=== PATIENT | male | born 1960 | race African-American/Black ===

== ENCOUNTER → 2017-08-01 | Outpatient (CLI) | payer OTHER ==
[2017-08-02 16:55] LABS: ADD MAN DIFF? NO
[2017-08-02 17:11] LABS: BASO # 0.1 x10^3/uL (0.0-0.2); BASO % 1 % (0-3); EOS # 0.1 x10^3/uL (0.0-0.7); EOS % 1 % (0-3); HEMATOCRIT 45.3 % (39.0-53.0); HEMOGLOBIN 14.8 g/dL (13.0-17.5); LYMPH # 2.2 x10^3/uL (1.0-4.8); LYMPH % 31 % (24-48); MEAN CORPUSCULAR HEMOGLOBIN 27 pg (25-35); MEAN CORPUSCULAR HGB CONC 33 g/dL (31-37); MEAN CORPUSCULAR VOLUME 83 fL (79-100); MONO # 0.6 x10^3/uL (0.0-1.1); MONO % 8 % (0-9); NEUT # 4.3 x10^3uL (1.8-7.7); NEUT % 59 % (31-73); PLATELET COUNT 266 x10^3/uL (140-400); RED BLOOD COUNT 5.44 x10^6/uL (4.30-5.70); RED CELL DISTRIBUTION WIDTH 15.4 % (11.5-14.5); WHITE BLOOD COUNT 7.2 x10^3/uL (4.0-11.0)
[2017-08-02 17:45] LABS: ALBUMIN 4.5 g/dL (3.4-5.0); ALBUMIN/GLOBULIN RATIO 0.9 (1.0-1.7); ALK PHOS 114 U/L (46-116); ALT (SGPT) 30 U/L (16-63); ANION GAP 14 (6-14); AST (SGOT) 28 U/L (15-37); BLOOD UREA NITROGEN 35 mg/dL (8-26); BUN/CREATININE RATIO 19 (6-20); CALCIUM 9.6 mg/dL (8.5-10.1); CARBON DIOXIDE 29 mmol/L (21-32); CHLORIDE 99 mmol/L (98-107); CHOLESTEROL 337 mg/dL (0-200); CREATININE 1.8 mg/dL (0.7-1.3); GFR 47.6; GLUCOSE 103 mg/dL (70-99); HDLC 54 mg/dL (40-60); LDLC 206 mg/dL (0-100); NON-HDL CHOLESTEROL 283 mg/dL (0-129); POTASSIUM 4.2 mmol/L (3.5-5.1); SODIUM 142 mmol/L (136-145); TOTAL BILIRUBIN 0.4 mg/dL (0.2-1.0); TOTAL PROTEIN 9.3 g/dL (6.4-8.2); TRIGLYCERIDES 383 mg/dL (0-150); VLDLC 77 mg/dL (0-40)
[2017-08-02 17:50] LABS: CHOLESTEROL/HDL RATIO 6.2
[2017-08-02 17:57] LABS: THYROID STIM HORMONE (TSH) 4.528 uIU/mL (0.358-3.74)
[2017-08-03 03:19] LABS: HEMOGLOBIN A1C 5.6 % (4.8-5.6)
[2017-08-06 17:12] LABS: ANA INTERP Negative (.)
== END | disposition home or self-care (01) ==
LOC: LAB 17:14
DX: I12.9 Hypertensive chronic kidney disease with stage 1 through stage 4 chronic kidney disease, or unspecified chronic kidney disease (principal); N18.9 Chronic kidney disease, unspecified; E78.2 Mixed hyperlipidemia; R79.89 Other specified abnormal findings of blood chemistry
CPT/HCPCS: 36415; 80053; 80061; 83036; 84443; 85025; 86038

== ENCOUNTER → 2018-01-03 | Outpatient (CLI) | payer OTHER ==
[2018-01-03 17:05] LABS: ADD MAN DIFF? NO
[2018-01-03 17:11] LABS: BASO % 1 % (0-3); EOS # 0.1 x10^3/uL (0.0-0.7); EOS % 1 % (0-3); HEMATOCRIT 38.3 % (39.0-53.0); HEMOGLOBIN 13.3 g/dL (13.0-17.5); LYMPH # 2.3 x10^3/uL (1.0-4.8); LYMPH % 33 % (24-48); MEAN CORPUSCULAR HEMOGLOBIN 29 pg (25-35); MEAN CORPUSCULAR HGB CONC 35 g/dL (31-37); MEAN CORPUSCULAR VOLUME 83 fL (79-100); MONO # 0.4 x10^3/uL (0.0-1.1); MONO % 6 % (0-9); NEUT % 58 % (31-73); PLATELET COUNT 229 x10^3/uL (140-400); RED BLOOD COUNT 4.62 x10^6/uL (4.30-5.70); RED CELL DISTRIBUTION WIDTH 14.9 % (11.5-14.5); WHITE BLOOD COUNT 6.8 x10^3/uL (4.0-11.0)
[2018-01-03 17:32] LABS: ALBUMIN 4.2 g/dL (3.4-5.0); ALK PHOS 107 U/L (46-116); ALT (SGPT) 72 U/L (16-63); ANION GAP 12 (6-14); AST (SGOT) 46 U/L (15-37); BLOOD UREA NITROGEN 24 mg/dL (8-26); BUN/CREATININE RATIO 14 (6-20); CALCIUM 9.1 mg/dL (8.5-10.1); CARBON DIOXIDE 26 mmol/L (21-32); CHLORIDE 99 mmol/L (98-107); CHOLESTEROL 224 mg/dL (0-200); CREATINE KINASE 553 U/L (39-308); CREATININE 1.7 mg/dL (0.7-1.3); GFR 50.9; GLUCOSE 122 mg/dL (70-99); HDLC 42 mg/dL (40-60); NON-HDL CHOLESTEROL 182 mg/dL (0-129); POTASSIUM 3.4 mmol/L (3.5-5.1); SODIUM 137 mmol/L (136-145); TOTAL BILIRUBIN 0.3 mg/dL (0.2-1.0); TOTAL PROTEIN 8.5 g/dL (6.4-8.2)
[2018-01-03 17:40] LABS: FREE T4 0.77 ng/dL (0.76-1.46)
[2018-01-03 17:40] LABS: THYROID STIM HORMONE (TSH) 3.859 uIU/mL (0.358-3.74)
[2018-01-03 17:53] LABS: LDLC 95 mg/dL (0-100); TRIGLYCERIDES 434 mg/dL (0-150); VLDLC 87 mg/dL (0-40)
[2018-01-03 18:16] LABS: CHOLESTEROL/HDL RATIO 5.3
== END | disposition home or self-care (01) ==
LOC: LAB 16:51
DX: I12.9 Hypertensive chronic kidney disease with stage 1 through stage 4 chronic kidney disease, or unspecified chronic kidney disease (principal); N18.9 Chronic kidney disease, unspecified; E78.2 Mixed hyperlipidemia; R94.6 Abnormal results of thyroid function studies
CPT/HCPCS: 36415; 80053; 80061; 82550; 84439; 84443; 85025

== ENCOUNTER → 2018-05-10 | Outpatient (CLI) | payer OTHER ==
[2018-05-10 17:41] LABS: ALBUMIN 4.5 g/dL (3.4-5.0); ALBUMIN/GLOBULIN RATIO 1.1 (1.0-1.7); CREATININE 1.4 mg/dL (0.7-1.3); GFR 63.7; MAGNESIUM 2.1 mg/dL (1.8-2.4); POTASSIUM 3.7 mmol/L (3.5-5.1); TOTAL BILIRUBIN 0.5 mg/dL (0.2-1.0); TOTAL PROTEIN 8.7 g/dL (6.4-8.2)
[2018-05-10 17:45] LABS: CHOLESTEROL/HDL RATIO 5.7
== END | disposition home or self-care (01) ==
LOC: LAB 16:52
PROVIDERS: ATTEND Internal Medicine
DX: E78.2 Mixed hyperlipidemia (principal); E03.9 Hypothyroidism, unspecified; I12.9 Hypertensive chronic kidney disease with stage 1 through stage 4 chronic kidney disease, or unspecified chronic kidney disease; N18.9 Chronic kidney disease, unspecified
CPT/HCPCS: 36415; 80053; 80061; 82550; 83735; 84443

== ENCOUNTER → 2018-11-04 | Outpatient (CLI) | payer OTHER ==
[2018-11-04 16:57] LABS: BASO # 0.1 x10^3/uL (0.0-0.2); BASO % 1 % (0-3); EOS # 0.1 x10^3/uL (0.0-0.7); EOS % 2 % (0-3); HEMATOCRIT 37.3 % (39.0-53.0); HEMOGLOBIN 12.1 g/dL (13.0-17.5); LYMPH # 2.1 x10^3/uL (1.0-4.8); LYMPH % 31 % (24-48); MEAN CORPUSCULAR HEMOGLOBIN 26 pg (25-35); MEAN CORPUSCULAR HGB CONC 33 g/dL (31-37); MEAN CORPUSCULAR VOLUME 81 fL (79-100); MONO # 0.5 x10^3/uL (0.0-1.1); MONO % 8 % (0-9); NEUT # 3.9 x10^3uL (1.8-7.7); NEUT % 59 % (31-73); PLATELET COUNT 260 x10^3/uL (140-400); RED CELL DISTRIBUTION WIDTH 15.6 % (11.5-14.5); WHITE BLOOD COUNT 6.6 x10^3/uL (4.0-11.0)
[2018-11-04 17:21] LABS: ALBUMIN/GLOBULIN RATIO 0.9 (1.0-1.7); CREATININE 1.4 mg/dL (0.7-1.3); GFR 63.4; POTASSIUM 3.8 mmol/L (3.5-5.1); TOTAL BILIRUBIN 0.5 mg/dL (0.2-1.0); TOTAL PROTEIN 8.3 g/dL (6.4-8.2)
[2018-11-04 17:22] LABS: CHOLESTEROL/HDL RATIO 4.1
== END | disposition home or self-care (01) ==
LOC: LAB 16:41
PROVIDERS: ATTEND Internal Medicine
DX: E78.2 Mixed hyperlipidemia (principal); E03.9 Hypothyroidism, unspecified
CPT/HCPCS: 36415; 80053; 80061; 82550; 84443; 85025

== ENCOUNTER → 2018-11-19 | Outpatient (CLI) | payer OTHER ==
[2018-11-19 17:25] LABS: ALBUMIN 4.2 g/dL (3.4-5.0); CALCIUM 9.5 mg/dL (8.5-10.1); CREATININE 1.4 mg/dL (0.7-1.3); DIRECT BILIRUBIN 0.1 mg/dL (0.0-0.2); GFR 63.4; POTASSIUM 3.7 mmol/L (3.5-5.1); TOTAL BILIRUBIN 0.3 mg/dL (0.2-1.0); TOTAL PROTEIN 8.5 g/dL (6.4-8.2)
== END | disposition home or self-care (01) ==
LOC: LAB 16:41
PROVIDERS: ATTEND Internal Medicine
DX: E78.2 Mixed hyperlipidemia (principal); R74.8 Abnormal levels of other serum enzymes
CPT/HCPCS: 36415; 80053; 80076; 82550

== ENCOUNTER → 2018-12-31 | Outpatient (CLI) | payer OTHER ==
[2018-12-31 17:35] LABS: ALBUMIN 4.1 g/dL (3.4-5.0); DIRECT BILIRUBIN 0.2 mg/dL (0.0-0.2); TOTAL BILIRUBIN 0.4 mg/dL (0.2-1.0); TOTAL PROTEIN 8.3 g/dL (6.4-8.2)
[2018-12-31 17:39] LABS: CHOLESTEROL/HDL RATIO 4.7
[2018-12-31 17:43] LABS: FREE T4 1.01 ng/dL (0.76-1.46); THYROID STIM HORMONE (TSH) 2.101 uIU/mL (0.358-3.74)
== END | disposition home or self-care (01) ==
LOC: LAB 16:41
PROVIDERS: ATTEND Internal Medicine
DX: R74.8 Abnormal levels of other serum enzymes (principal); E78.2 Mixed hyperlipidemia; E03.9 Hypothyroidism, unspecified
CPT/HCPCS: 36415; 80061; 80076; 82550; 84439; 84443

== ENCOUNTER → 2019-04-28 | Outpatient (CLI) | payer BC, OTHER ==
[2019-04-16 15:30] VITALS: BP 142/95
[~2019-04-28] MED LIST: HYDR30CR61 TP
[2019-04-28 13:02] LABS: ALBUMIN 4.3 g/dL (3.4-5.0); DIRECT BILIRUBIN 0.2 mg/dL (0.0-0.2); TOTAL BILIRUBIN 0.5 mg/dL (0.2-1.0); TOTAL PROTEIN 9.4 g/dL (6.4-8.2)
[2019-04-28 13:03] LABS: CHOLESTEROL/HDL RATIO 4.4
== END | disposition home or self-care (01) ==
LOC: LAB 12:28
PROVIDERS: ATTEND Internal Medicine
DX: E78.2 Mixed hyperlipidemia (principal); R94.5 Abnormal results of liver function studies
CPT/HCPCS: 36415; 80061; 80076; 82550; 86705; 86709; 86803; 87340

== ENCOUNTER → 2019-07-14 | Outpatient (CLI) | payer OTHER ==
[2019-04-16 15:30] VITALS: BP 142/95
[2019-07-14 17:03] LABS: BASO # 0.1 x10^3/uL (0.0-0.2); BASO % 1 % (0-3); EOS # 0.1 x10^3/uL (0.0-0.7); EOS % 2 % (0-3); HEMATOCRIT 30.5 % (39.0-53.0); LYMPH # 1.6 x10^3/uL (1.0-4.8); LYMPH % 26 % (24-48); MEAN CORPUSCULAR HEMOGLOBIN 27 pg (25-35); MEAN CORPUSCULAR HGB CONC 33 g/dL (31-37); MEAN CORPUSCULAR VOLUME 82 fL (79-100); MONO # 0.5 x10^3/uL (0.0-1.1); MONO % 8 % (0-9); NEUT # 3.8 x10^3/uL (1.8-7.7); NEUT % 63 % (31-73); PLATELET COUNT 316 x10^3/uL (140-400); RED BLOOD COUNT 3.74 x10^6/uL (4.30-5.70); RED CELL DISTRIBUTION WIDTH 15.5 % (11.5-14.5); WHITE BLOOD COUNT 6.1 x10^3/uL (4.0-11.0)
[2019-07-14 17:20] LABS: ALBUMIN 4.4 g/dL (3.4-5.0); ALBUMIN/GLOBULIN RATIO 0.9 (1.0-1.7); CALCIUM 9.9 mg/dL (8.5-10.1); GFR 41.9; POTASSIUM 3.6 mmol/L (3.5-5.1); TOTAL BILIRUBIN 0.5 mg/dL (0.2-1.0); TOTAL PROTEIN 9.4 g/dL (6.4-8.2)
[2019-07-14 17:31] LABS: FREE T4 1.02 ng/dL (0.76-1.46); THYROID STIM HORMONE (TSH) 2.358 uIU/mL (0.358-3.74)
== END | disposition home or self-care (01) ==
LOC: LAB 16:39
PROVIDERS: ATTEND Internal Medicine
DX: I12.9 Hypertensive chronic kidney disease with stage 1 through stage 4 chronic kidney disease, or unspecified chronic kidney disease (principal); E03.9 Hypothyroidism, unspecified; N18.9 Chronic kidney disease, unspecified
CPT/HCPCS: 36415; 80053; 84439; 84443; 85025

== ENCOUNTER → 2019-08-11 | Day surgery (SDC) | payer OTHER ==
[~2019-08-11] MED LIST changes: +AMLO10TA4 PO; +AMLO10TA8 PO; +CETI10TA24 PO; +FLUT9.9S NS; +IV RINGERS,LACTATED 1000ML 1,000 ML IV ONE; +LIDOCAINE 2% PF 5 ML VIAL. ONE; +POTA10TA12 PO; +PROPOFOL 40 ML IV ONE; +PROPOFOL 60 ML IV ONE; +TRIA1CAP PO
--- NOTE | 2019-08-11 15:11 | PDOC4 ---
PROCEDURE Procedure EGD/biopsies, Colonoscopy with biopsies/tattooing Indication: RADHA Meds: per anesthesia Findings: E--normal G--focal group of petechiae lesser curve upper body (retching?). Biopsies antrum.\ D--Normal to second portion; biopsies. ALMA--normal. --'Scope advanced to cecum. In mid-sigmoid, circumferential partly-obstructing tumor able to pass with minor difficulty. Exam otherwise normal. Tumor biopsied and tattooed above and below. Patrick. well. IMP: Near-obstructing sigmoid tumor Gastric petechiae. REC: CEA CT chest/abdomen/pelvis Await biopsies. F/u in 2 weeks. Surgical opinion. Resume home meds and diet. KANCHAN ALBERTO MD Aug 11, 2019 15:11
[2019-08-11 16:00] VITALS: BP 184/79
--- NOTE | 2019-08-13 17:06 | PATHOLOGY ---
[facility] Accession Number: [id number] . 01 Material submitted: . PART A: duodenum - DUODENUM BIOPSY PART B: stomach - ANTRUM BIOPSY PART C: colon - SIGMOID MASS BIOPSY. Modifiers: sigmoid . 01 Clinical history: . Anemia . 02 Diagnosis: A. Duodenal biopsies: - No significant pathologic abnormalities. . B. Gastric biopsies, antrum: - Active chronic gastritis, moderate, with Helicobacter organisms identified. . C. Colon biopsies, sigmoid colon mass: - Adenocarcinoma, moderately differentiated, ulcerated. . (JPM:mason; 08/13/2019) S 08/13/2019 1622 Local . 02 Comment: Sections of the duodenal biopsy reveal segments of duodenal mucosa. Where best oriented, the mucosa villi show no sprue-like changes or significant inflammatory changes. . Sections of the gastric antral biopsy show congestion and moderate active chronic inflammation. A properly controlled immunoperoxidase stain for Helicobacter reveals focally prominent numbers of Helicobacter organisms. There is no evidence of malignancy. . Sections of the sigmoid colon biopsy reveal malignant glands infiltrating a reactive desmoplastic stroma. The glands frequently have a gland within gland, cribriform arrangement. There is evidence of ulceration. The morphologic findings are supportive of the diagnosis of a moderately differentiated colorectal adenocarcinoma. . The case is also examined by Dr. Perla, who concurs with the diagnosis. (JPM:mason; 08/13/2019) . 02 Electronically signed: . Cachorro Pedraza MD, Pathologist NPI- [id number] . 01 Gross description: . A. Received in formalin labeled "Millerjr, Rhonda, duodenum BX," are 2 segments of castro soft tissue measuring 1.3 x 0.2 x 0.2 cm in aggregate dimensions and ranging from 0.4 to 0.8 cm in maximum dimension. The specimen is submitted entirely in cassette A1. . B. Received in formalin labeled "JamiejrRhonda, antrum BX," are 2 segments of castro soft tissue measuring 0.7 x 0.2 x 0.1 cm in aggregate dimensions and ranging from 0.3 to 0.4 cm in maximum dimension. The specimen is submitted entirely in cassette B1. . C. Received in formalin labeled "Jamiejr, Rhonda, sigmoid mass BX," are multiple segments of castro soft tissue measuring 1.5 x 0.4 x 0.1 cm in aggregate dimensions. The specimen is filtered and entirely submitted in cassette C1. (TSD; 08/12/2019) TOB/TOB 08/12/2019 1802 Local . 02 Pathologist provided ICD-10: K29.50, C18.7 . 02 CPT . 393112, 878262, 801589, [id number] Specimen Comment: A courtesy copy of this report has been sent to [phone], [phone] Specimen Comment: [id number] Specimen Comment: Report sent to / DR PHOENIX Performed at: 01 [facility] [address] [facility] [address], [place] [id number] MD Dajuan Barnes MD Phone: [phone] Performed at: 02 [facility] [address], [place] [id number] MD Cachorro Pedraza MD Phone: [phone]
== END | disposition home or self-care (01) ==
LOC: ENDOS 13:23
PROVIDERS: ATTEND Internal Medicine Gastroenterology
DX: D50.9 Iron deficiency anemia, unspecified (principal); C18.7 Malignant neoplasm of sigmoid colon; K64.0 First degree hemorrhoids; K31.89 Other diseases of stomach and duodenum; K29.50 Unspecified chronic gastritis without bleeding; B96.81 Helicobacter pylori [H. pylori] as the cause of diseases classified elsewhere; I10 Essential (primary) hypertension; E78.00 Pure hypercholesterolemia, unspecified; Z83.3 Family history of diabetes mellitus; Z82.49 Family history of ischemic heart disease and other diseases of the circulatory system; Z82.3 Family history of stroke; Z79.899 Other long term (current) drug therapy; Z98.890 Other specified postprocedural states
CPT/HCPCS: 36415; 43239; 45380; 45381; 82378; J2001; J2704

== ENCOUNTER → 2019-08-14 | Outpatient (CLI) | payer OTHER ==
[2019-08-11 16:00] VITALS: BP 184/79
[~2019-08-14] MED LIST changes: +IOHEXOL 240 MG/ML 100 ML VIAL. IV ONE; +IOHEXOL 240 MG/ML 50ML VIAL. ONE; +IOHEXOL 300 MG/ML 100ML VIAL. ONE; +IOHEXOL 300 MG/ML 50 ML VIAL. PO ONE; -IV RINGERS,LACTATED 1000ML 1,000 ML IV ONE; -LIDOCAINE 2% PF 5 ML VIAL. ONE; -PROPOFOL 40 ML IV ONE; -PROPOFOL 60 ML IV ONE
[2019-08-14 16:05] LABS: CREATININE 1.7 mg/dL (0.7-1.3); GFR 50.5
--- NOTE | 2019-08-15 08:59 | RAD ---
EXAM: CT Chest, Abdomen, and Pelvis with IV contrast INDICATION: Colon mass TECHNIQUE: Multi-detector row CT images were acquired from the thoracic inlet through the ischial tuberosities with the use of IV contrast. Sagittal and coronal images were acquired from the transaxial data. All CT scans performed at this facility utilize dose optimization techniques as appropriate to the exam, including the following: Automated exposure control and adjustment of the mA and/or KV according to patient size (this includes techniques or standardized protocols for targeted exams where dose is indication/reason for exam). IV CONTRAST: Administered ORAL CONTRAST: Administered DLP 380.9 mGycm COMPARISON: None FINDINGS: CHEST: CARDIOVASCULAR: Unremarkable MEDIASTINUM & JANET: No adenopathy or masses. LUNGS: A 7 mm right lower lobe pulmonary nodule is present (image 42 axial series 2, image 30 coronal series 5). Calcified nodule was pleural-parenchymal scarring is present in the peripheral left upper lobe. Lungs otherwise show a few thin-walled cysts in a lower lobe predominant distribution. PLEURAL SPACE: No pleural effusions or pneumothorax. OSSEOUS & SOFT TISSUE: Unremarkable ABDOMEN/PELVIS: LIVER: There are numerous (at least 6) hypovascular hepatic masses with an enhancing pseudocapsule present throughout the liver. The largest measures 8 cm in the caudate lobe and it obscures the intrahepatic IVC. BILIARY SYSTEM: Gallbladder is unremarkable. Bile ducts are not dilated. PANCREAS: Unremarkable SPLEEN: Unremarkable ADRENALS: Unremarkable KIDNEYS & URETERS: The right kidney is normal. The left kidney shows delayed enhancement and grade 3 hydronephrosis and hydroureter with abrupt interruption of the column of urine in the ureter to soft tissue that is contiguous with the left retroperitoneal mass described below. BLADDER: Unremarkable REPRODUCTIVE ORGANS: Unremarkable GASTROINTESTINAL: A 3.2 cm circumferential but eccentric colonic mass in the sigmoid colon is present, contiguous with the soft tissue mass obstructing the left ureter. No findings of bowel obstruction. Stomach and small bowel are unremarkable. The appendix is not well seen but there are no findings of appendicitis. MESENTERY/PERITONEUM/RETROPERITONEUM: There is an extracolonic mass in the left retroperitoneum superficial to the left common iliac artery measuring 5 cm in craniocaudal extent on coronal image 22 of 50, 3.7 cm in anteroposterior extent, and 3.1 cm in mediolateral extent on axial image 47 of 85 on series 4. VASCULAR: Unremarkable LYMPH NODES: Multiple enlarged retroperitoneal lymph nodes are present, some forming a conglomerate mass that is indistinguishable from the patient's primary tumor. These are primarily along the left common iliac zacarias chain but also include a 9 mm left para-aortic lymph node just above the aortic bifurcation. OSSEOUS & SOFT TISSUES: Unremarkable IMPRESSION: Large circumferential sigmoid colon mass with extracolonic extension into the left retroperitoneum, resulting in obstruction of the distal left ureter, and in numerous hepatic metastases and a possible left lower lobe pulmonary metastatic deposit as well. No current findings of bowel obstruction. FOR INTERNAL CODING PURPOSES Critical result: Findings discussed with KANCHAN ALBERTO at 08/15/2019 8:56 AM. RESULT CODE: (C) Electronically signed by: Jhony Antunez MD (08/15/2019 8:56 AM) [facility]
== END | disposition home or self-care (01) ==
LOC: CT 15:24
PROVIDERS: ATTEND Internal Medicine Gastroenterology
DX: K63.89 Other specified diseases of intestine (principal); J98.4 Other disorders of lung; R91.1 Solitary pulmonary nodule; R16.0 Hepatomegaly, not elsewhere classified; N13.30 Unspecified hydronephrosis; N13.4 Hydroureter; K62.5 Hemorrhage of anus and rectum
CPT/HCPCS: 36415; 71260; 74177; 82565; 84520; Q9966; Q9967

== ENCOUNTER → 2019-08-15 | Outpatient (CLI) | payer OTHER ==
[2019-08-11 16:00] VITALS: BP 184/79
[~2019-08-15] MED LIST changes: -IOHEXOL 240 MG/ML 100 ML VIAL. IV ONE; -IOHEXOL 240 MG/ML 50ML VIAL. ONE; -IOHEXOL 300 MG/ML 100ML VIAL. ONE; -IOHEXOL 300 MG/ML 50 ML VIAL. PO ONE
--- NOTE | 2019-08-15 13:39 | RAD ---
EXAM: Renal sonogram. HISTORY: Renal insufficiency. TECHNIQUE: Sonographic imaging the kidneys and bladder was performed. COMPARISON: CT dated 08/14/2019. FINDINGS: The right kidney measures 10.1 cm [id number]. The left kidney measures 9.1 cm [id number]. There is moderate and left hydronephrosis. No solid or cystic lesion is seen. There is aortic atherosclerosis. The aorta is normal in caliber. The inferior vena cava is patent. The bladder volume is 36 cc. There are multiple large hepatic masses. IMPRESSION: 1. Moderate left hydronephrosis. 2. Suspected mild left renal atrophy. The small cyst within the upper pole the left kidney on the recent CT is not seen sonographically. 3. Multiple hepatic masses. These are better characterized on the CT performed one day prior. Electronically signed by: Yesenia Moreno MD (08/15/2019 1:36 PM) [facility]
== END | disposition home or self-care (01) ==
LOC: US 12:36
PROVIDERS: ATTEND Internal Medicine Nephrology
DX: N28.1 Cyst of kidney, acquired (principal); N18.3 Chronic kidney disease, stage 3 (moderate); N13.30 Unspecified hydronephrosis; I70.0 Atherosclerosis of aorta; R16.0 Hepatomegaly, not elsewhere classified
CPT/HCPCS: 76770

== ENCOUNTER → 2019-08-15 | Outpatient (CLI) | payer OTHER ==
[2019-08-11 16:00] VITALS: BP 184/79
== END | disposition home or self-care (01) ==
LOC: LAB 13:32
PROVIDERS: ATTEND Surgery
DX: C18.9 Malignant neoplasm of colon, unspecified (principal)
CPT/HCPCS: 36415; 82378

== ENCOUNTER → 2019-09-02 | Outpatient (CLI) | payer OTHER ==
[2019-08-11 16:00] VITALS: BP 184/79
[2019-09-02 15:30] LABS: BASO # 0.1 x10^3/uL (0.0-0.2); BASO % 1 % (0-3); EOS # 0.3 x10^3/uL (0.0-0.7); EOS % 4 % (0-3); HEMATOCRIT 27.8 % (39.0-53.0); HEMOGLOBIN 9.3 g/dL (13.0-17.5); LYMPH # 1.2 x10^3/uL (1.0-4.8); LYMPH % 18 % (24-48); MEAN CORPUSCULAR HEMOGLOBIN 27 pg (25-35); MEAN CORPUSCULAR HGB CONC 33 g/dL (31-37); MEAN CORPUSCULAR VOLUME 79 fL (79-100); MONO # 0.5 x10^3/uL (0.0-1.1); MONO % 7 % (0-9); NEUT # 4.9 x10^3/uL (1.8-7.7); NEUT % 70 % (31-73); PLATELET COUNT 401 x10^3/uL (140-400); RED BLOOD COUNT 3.51 x10^6/uL (4.30-5.70); RED CELL DISTRIBUTION WIDTH 15.3 % (11.5-14.5); WHITE BLOOD COUNT 7.1 x10^3/uL (4.0-11.0)
[2019-09-02 15:54] LABS: ALBUMIN 3.5 g/dL (3.4-5.0); ALBUMIN/GLOBULIN RATIO 0.7 (1.0-1.7); CALCIUM 9.4 mg/dL (8.5-10.1); CREATININE 1.7 mg/dL (0.7-1.3); GFR 50.5; POTASSIUM 3.9 mmol/L (3.5-5.1); TOTAL BILIRUBIN 0.3 mg/dL (0.2-1.0); TOTAL PROTEIN 8.3 g/dL (6.4-8.2)
== END | disposition home or self-care (01) ==
LOC: LAB 14:21
PROVIDERS: ATTEND Internal Medicine
DX: I12.9 Hypertensive chronic kidney disease with stage 1 through stage 4 chronic kidney disease, or unspecified chronic kidney disease (principal); N18.3 Chronic kidney disease, stage 3 (moderate)
CPT/HCPCS: 36415; 80053; 85025

== ENCOUNTER → 2019-09-03 | Outpatient (CLI) | payer OTHER ==
[2019-08-11 16:00] VITALS: BP 184/79
[2019-09-03 11:42] LABS: BASO # 0.1 x10^3/uL (0.0-0.2); BASO % 1 % (0-3); EOS # 0.2 x10^3/uL (0.0-0.7); EOS % 3 % (0-3); HEMATOCRIT 28.5 % (39.0-53.0); HEMOGLOBIN 9.4 g/dL (13.0-17.5); LYMPH % 13 % (24-48); MEAN CORPUSCULAR HEMOGLOBIN 26 pg (25-35); MEAN CORPUSCULAR HGB CONC 33 g/dL (31-37); MEAN CORPUSCULAR VOLUME 80 fL (79-100); MONO # 0.4 x10^3/uL (0.0-1.1); MONO % 5 % (0-9); NEUT # 6.1 x10^3/uL (1.8-7.7); NEUT % 79 % (31-73); PLATELET COUNT 417 x10^3/uL (140-400); RED BLOOD COUNT 3.57 x10^6/uL (4.30-5.70); RED CELL DISTRIBUTION WIDTH 15.4 % (11.5-14.5); WHITE BLOOD COUNT 7.8 x10^3/uL (4.0-11.0)
[2019-09-03 12:05] LABS: ALBUMIN 3.6 g/dL (3.4-5.0); ALBUMIN/GLOBULIN RATIO 0.7 (1.0-1.7); CALCIUM 9.3 mg/dL (8.5-10.1); CREATININE 1.4 mg/dL (0.7-1.3); GFR 63.2; POTASSIUM 3.9 mmol/L (3.5-5.1); TOTAL BILIRUBIN 0.3 mg/dL (0.2-1.0); TOTAL PROTEIN 8.5 g/dL (6.4-8.2)
== END | disposition home or self-care (01) ==
LOC: LAB 11:17
PROVIDERS: ATTEND Internal Medicine Hematology & Oncology
DX: C18.7 Malignant neoplasm of sigmoid colon (principal)
CPT/HCPCS: 36415; 80053; 82378; 85025

== ENCOUNTER → 2019-09-16 | Outpatient (CLI) | payer OTHER ==
[2019-08-11 16:00] VITALS: BP 184/79
[~2019-09-16] MED LIST changes: +AMOX500C PO; +OMEP20CA16 PO; +OXYM30SP25 NS
[2019-09-16 09:41] LABS: BILIRUBIN,URINE NEGATIVE (NEG); COLOR,URINE YELLOW; NITRITE,URINE NEGATIVE (NEG); PH,URINE 6.5; PROTEIN,URINE >=300 mg/dL (NEG-TRACE); UROBILINOGEN,URINE 0.2 mg/dL (0.2 mg/dL)
[2019-09-16 09:50] LABS: CLARITY,URINE HAZY; RBC,URINE >40 /HPF (0-2)
[2019-09-16 09:51] LABS: BACTERIA,URINE FEW /HPF (0-FEW); SPERM,URINE PRESENT /HPF; SQUAMOUS EPITHELIAL CELL,UR OCC /LPF
== END | disposition home or self-care (01) ==
LOC: LAB 07:10
PROVIDERS: ATTEND Internal Medicine
DX: R39.9 Unspecified symptoms and signs involving the genitourinary system (principal)
CPT/HCPCS: 81001; 87086

== ENCOUNTER 2019-09-17 07:04 | Outpatient (CLI) | payer OTHER ==
[2019-09-17] VITALS (12 sets, daily range): BP systolic 105–171; BP diastolic 75–104
[~2019-09-17] VITALS: Ht 167.6 cm; Wt 54.4 kg
[~2019-09-17 07:04] MED LIST changes: -AMOX500C PO; -OMEP20CA16 PO; -OXYM30SP25 NS
[2019-09-17 07:36] LABS: BASO # 0.1 x10^3/uL (0.0-0.2); BASO % 1 % (0-3); EOS # 0.1 x10^3/uL (0.0-0.7); EOS % 2 % (0-3); HEMATOCRIT 27.9 % (39.0-53.0); HEMOGLOBIN 9.2 g/dL (13.0-17.5); LYMPH # 0.9 x10^3/uL (1.0-4.8); LYMPH % 16 % (24-48); MEAN CORPUSCULAR HEMOGLOBIN 26 pg (25-35); MEAN CORPUSCULAR HGB CONC 33 g/dL (31-37); MEAN CORPUSCULAR VOLUME 77 fL (79-100); MONO # 0.8 x10^3/uL (0.0-1.1); MONO % 14 % (0-9); NEUT # 3.8 x10^3/uL (1.8-7.7); NEUT % 68 % (31-73); PLATELET COUNT 389 x10^3/uL (140-400); RED CELL DISTRIBUTION WIDTH 15.4 % (11.5-14.5); WHITE BLOOD COUNT 5.5 x10^3/uL (4.0-11.0)
[2019-09-17] MEDS ORDERED: LIDOCAINE WITH 8.4% SOD BICARB 3 ML DISP.SYRIN. ONE (07:51)
[2019-09-17] MEDS ORDERED: OXYM30SP25 NS (07:56)
[2019-09-17] MEDS ORDERED: AMOX500C PO (07:56)
[2019-09-17] MEDS ORDERED: OMEP20CA16 PO (07:56)
[2019-09-17 08:00] LABS: PROTHROMBIN TIME PATIENT 13.6 SEC (11.7-14.0)
[2019-09-17] MEDS ORDERED: GELATIN SPONGE SIZE 12-7MM SPONGE. ONE (08:14)
[2019-09-17] MEDS ORDERED: MIDAZOLAM HCL/PF 2 MG/2 ML VIAL. ONE (08:17)
[2019-09-17] MEDS ORDERED: fentaNYL PF VIAL 100 MCG/2 ML VIAL ONE (08:17)
[2019-09-17] MEDS ORDERED: fentaNYL PF VIAL 100 MCG/2 ML VIAL IV ONE (08:30)
[2019-09-17] MEDS ORDERED: LIDOCAINE WITH 8.4% SOD BICARB 3 ML DISP.SYRIN. IJ ONE (08:30)
[2019-09-17] MEDS ORDERED: GELATIN SPONGE SIZE 12-7MM SPONGE. TP ONE (08:30)
[2019-09-17] MEDS ORDERED: MIDAZOLAM HCL/PF 2 MG/2 ML VIAL. IV ONE (08:30)
--- NOTE | 2019-09-17 09:20 | RAD ---
In-111 White Blood Cell and Bone Marrow Scintigraphy - Limited Area: Procedure: Ultrasound-guided liver biopsy Clinical Indication: Adult male with multiple liver metastases, known colon cancer Sedation: Conscious sedation was administered with a total intraprocedural [id number] time of 20 minutes. The patient was monitored by a qualified independent observer throughout the time of sedation. Please refer to the medical record for exact doses of medications utilized to achieve moderate sedation. Antibiotics: None Sterility: The procedure was performed in its entirety using appropriate elements of sterile technique. Consent: The procedure was explained in its entirety to the patient or the patients designated media sales representative by a member of the treatment team, including a discussion of the risks, benefits and commonly accepted alternatives to the procedure, as well as the expected consequences of no therapy whatsoever. Discussion of the risks included, but was not limited to, those that are most frequent and those that are rare but possibly severe or life-threatening, as well as the possibility of unforeseen complications. Technique and Findings: Following informed consent, the patient was prepped and draped in usual sterile fashion. Ultrasound interrogation of the liver reveals multiple hyperechoic masses. 1% lidocaine was used to achieve local anesthesia over the area of interest. A small dermatotomy was made. Under ultrasound guidance, an 17-gauge needle guide was advanced towards a target lesion within the left lobe of the liver and 5 separate 18-gauge core biopsy specimens were obtained and preserved in formalin. Gelfoam pledgets were then applied as the needle guide was removed and hemostasis was achieved with manual compression. Complications: No immediate Impression: 1. Ultrasound-guided liver biopsy as described. Radiopharmaceutical: uCi In-111 labeled autologous white blood cells IV; mCi Tc-99m sulfur colloid IV . History: Findings: Approximately 24 hours following re-injection of In-111 labeled white blood cells, images of the were obtained. These demonstrate abnormal radiotracer activity in the . Differential diagnosis for this finding includes reactive bone marrow vs. infection. In order to delineate active bone marrow and help differentiate between these two possibilities, Tc-99m sulfur colloid bone marrow scintigraphy was then performed. Following administration of Tc-99 sulfur colloid IV, similar "dual-isotope" static images were performed. These images demonstrate abnormal bone marrow activity within the that is similar in appearance to the In-111 white blood cell scintigraphic images. Impression: Concordant In-111 white blood cell and Tc-99m sulfur colloid uptake in the is most typical of reactive bone marrow rather than infection.
--- NOTE | 2019-09-17 09:29 | PDOC ---
MODERATE SEDATION ASSESSMENT RISKS/ALTERNATIVES Risks/Alternatives Risks and alternatives of this type of sedation and procedure discussed with: RISK/ALTERNATIVES: Patient H & P ON CHART H & P H & P on chart and reviewed for co-morbid conditions and appropriate labs. H&P ON CHART: Yes STATUS PREG STATUS ASSESSED: Yes MEDS/ALLERGIES REVIEWED Meds/Allergies Reviewed Medications and Allergies including time and route of recently administered narcotics and sedatives. MEDS/ALLERGIES REVIEWED: Yes ASA RATING ASA RATING: II AIRWAY ASSESSMENT Airway Assessment Airway patency, oral function limitations, presence of caps, crowns, dentures, partials, and ability to extend neck assessed. AIRWAY ASSESSMENT: Yes MALLAMPATI SCORE MALLAMPATI SCORE: II PRE-SEDATION ASSESSMENT PRE-SEDATION ASSESSMENT: Yes ERIKA TORREZ MD Sep 17, 2019 09:29
--- NOTE | 2019-09-17 09:30 | PDOC ---
BRIEF OPERATIVE NOTE Pre-Op Diagnosis Liver masses Post-Op Diagnosis same Procedure Performed US liver biopsy Surgeon Rhonda Anesthesia Type: Conscious Sedation Specimens Obtained 5 x 18g cores Findings US liver biopsy Complications No immediate ERIKA TORREZ MD Sep 17, 2019 09:30
--- NOTE | 2019-09-17 11:28 | NUR ---
Discharge Note: BABAR FRAZIER Discharge instructions and discharge home medications reviewed with Patient and a copy given. All questions have been answered and understanding verbalized. The following instructions and handouts were given: liver biopsy aftercare,adult moderate sedation Discontinued lines and drains: Port A Cath intact. Patient discharged to Home or Self Care withFamily Membera Wheelchair
== END 2019-09-17 12:09 | disposition home or self-care (01) ==
LOC: INTRAD 07:04
PROVIDERS: ATTEND Internal Medicine Hematology & Oncology
DX: R16.0 Hepatomegaly, not elsewhere classified (principal); K76.89 Other specified diseases of liver; Z79.899 Other long term (current) drug therapy
CPT/HCPCS: 36415; 47000; 76942; 85025; 85610; 85730; 99152; J2250; J3010

== ENCOUNTER → 2019-09-22 | Outpatient (CLI) | payer OTHER ==
[2019-09-17 11:16] VITALS: BP 150/75
[~2019-09-22] MED LIST changes: +AMOX500C PO; +OMEP20CA16 PO; +OXYM30SP25 NS
[2019-09-22 09:43] LABS: ALBUMIN 3.3 g/dL (3.4-5.0); ALBUMIN/GLOBULIN RATIO 0.6 (1.0-1.7); CALCIUM 9.4 mg/dL (8.5-10.1); CREATININE 1.4 mg/dL (0.7-1.3); GFR 63.2; POTASSIUM 3.3 mmol/L (3.5-5.1); TOTAL BILIRUBIN 0.5 mg/dL (0.2-1.0); TOTAL PROTEIN 8.5 g/dL (6.4-8.2)
[2019-09-22 09:57] LABS: BILIRUBIN,URINE NEGATIVE (NEG); CLARITY,URINE CLEAR; COLOR,URINE YELLOW; NITRITE,URINE NEGATIVE (NEG); PH,URINE 6.5; PROTEIN,URINE 100 mg/dL (NEG-TRACE); UROBILINOGEN,URINE 0.2 mg/dL (0.2 mg/dL)
[2019-09-22 10:01] LABS: BASO # 0.1 x10^3/uL (0.0-0.2); BASO % 1 % (0-3); EOS # 0.1 x10^3/uL (0.0-0.7); EOS % 1 % (0-3); HEMATOCRIT 27.4 % (39.0-53.0); HEMOGLOBIN 9.1 g/dL (13.0-17.5); LYMPH % 17 % (24-48); MEAN CORPUSCULAR HEMOGLOBIN 26 pg (25-35); MEAN CORPUSCULAR HGB CONC 33 g/dL (31-37); MEAN CORPUSCULAR VOLUME 77 fL (79-100); MONO # 0.5 x10^3/uL (0.0-1.1); MONO % 8 % (0-9); NEUT # 4.6 x10^3/uL (1.8-7.7); NEUT % 74 % (31-73); PLATELET COUNT 412 x10^3/uL (140-400); RED BLOOD COUNT 3.56 x10^6/uL (4.30-5.70); RED CELL DISTRIBUTION WIDTH 15.2 % (11.5-14.5); WHITE BLOOD COUNT 6.2 x10^3/uL (4.0-11.0)
[2019-09-22 10:19] LABS: SQUAMOUS EPITHELIAL CELL,UR OCC /LPF
[2019-09-22 10:20] LABS: RBC,URINE >40 /HPF (0-2)
[2019-09-22 10:21] LABS: BACTERIA,URINE 0 /HPF (0-FEW); SPERM,URINE PRESENT /HPF
== END | disposition home or self-care (01) ==
LOC: LAB 08:35
PROVIDERS: ATTEND Internal Medicine Hematology & Oncology
DX: C18.7 Malignant neoplasm of sigmoid colon (principal)
CPT/HCPCS: 36415; 80053; 81001; 82378; 85025; 87086

== ENCOUNTER → 2019-09-29 | Outpatient (CLI) | payer OTHER ==
[2019-09-24 09:31] VITALS: BP 138/87
[~2019-09-29] MED LIST changes: +VALA10008 PO
[2019-09-29 13:26] LABS: BASO % 1 % (0-3); EOS % 1 % (0-3); HEMATOCRIT 30.9 % (39.0-53.0); HEMOGLOBIN 10.1 g/dL (13.0-17.5); LYMPH # 1.2 x10^3/uL (1.0-4.8); LYMPH % 18 % (24-48); MEAN CORPUSCULAR HEMOGLOBIN 25 pg (25-35); MEAN CORPUSCULAR HGB CONC 33 g/dL (31-37); MEAN CORPUSCULAR VOLUME 77 fL (79-100); MONO # 0.2 x10^3/uL (0.0-1.1); MONO % 3 % (0-9); NEUT # 5.3 x10^3/uL (1.8-7.7); NEUT % 77 % (31-73); PLATELET COUNT 365 x10^3/uL (140-400); RED BLOOD COUNT 4.02 x10^6/uL (4.30-5.70); RED CELL DISTRIBUTION WIDTH 15.2 % (11.5-14.5); WHITE BLOOD COUNT 6.8 x10^3/uL (4.0-11.0)
[2019-09-29 13:41] LABS: ALBUMIN 3.3 g/dL (3.4-5.0); ALBUMIN/GLOBULIN RATIO 0.6 (1.0-1.7); CALCIUM 9.3 mg/dL (8.5-10.1); CREATININE 1.3 mg/dL (0.7-1.3); GFR 68.8; POTASSIUM 3.5 mmol/L (3.5-5.1); TOTAL BILIRUBIN 0.8 mg/dL (0.2-1.0); TOTAL PROTEIN 9.3 g/dL (6.4-8.2)
== END | disposition home or self-care (01) ==
LOC: LAB 12:49
PROVIDERS: ATTEND Internal Medicine Hematology & Oncology
DX: C18.7 Malignant neoplasm of sigmoid colon (principal)
CPT/HCPCS: 36415; 80053; 82378; 85025

== ENCOUNTER 2019-10-02 20:03 | Inpatient (IN) | payer OTHER ==
[~2019-10-02] VITALS: Ht 167.6 cm; Wt 51.5 kg
[~2019-10-02 20:03] MED LIST changes: -VALA10008 PO
--- NOTE | 2019-10-02 20:40 | PHYS DOC ---
Past Medical History Past Medical History: High Cholesterol, Hypertension, Hypothyroid Past Surgical History: Other Additional Past Surgical Histo: Neck Fusion C4-5; wisdom teeth Smoking Status: Never Smoker Alcohol Use: None Drug Use: None Adult General Chief Complaint Chief Complaint: FEVER HPI HPI Patient is a 59 year old male who presents with fever this been ongoing for 3 days. The patient states that it was 100.9 degrees at home. He reports that he is also had a little bit of a cough. The patient denies any other symptoms. The patient is a colon cancer patient is currently on chemo, he had his last chemo treatment this past . His primary care physician is Dr. Phoenix, and his oncology doctor is Dr. Carter. Review of Systems Review of Systems Constitutional: Reports fever or chills [] Eyes: Denies change in visual acuity, redness, or eye pain [] HENT: Denies nasal congestion or sore throat [] Respiratory: Reports cough but denies shortness of breath. Cardiovascular: No additional information not addressed in HPI [] GI: Denies abdominal pain, nausea, vomiting, bloody stools or diarrhea [] : Denies dysuria or hematuria [] Musculoskeletal: Denies back pain or joint pain [] Integument: Denies rash or skin lesions [] Neurologic: Denies headache, focal weakness or sensory changes [] Endocrine: Denies polyuria or polydipsia [] Complete systems were reviewed and found to be within normal limits, except as documented in this note. Current Medications Current Medications Current Medications Medications (Trade) Dose Ordered Sig/Mara Start Time Stop Time Status Last Admin Dose Admin Fentanyl Citrate (Fentanyl 2ml Vial) 75 mcg 1X ONCE 10/02/19 21:30 10/02/19 21:32 DC Sodium Chloride (NORMAL SALINE FLUSH for STERILE FIELD) 10 ml STK-MED ONCE 10/02/19 20:47 10/02/19 20:48 DC Allergies Allergies Allergies Coded Allergies Type Severity Reaction Last Updated Verified No Known Drug Allergies 09/24/19 No Physical Exam Physical Exam Constitutional: Well developed, well nourished, no acute distress, non-toxic appearance. [] HENT: Normocephalic, atraumatic, bilateral external ears normal, oropharynx moist, no oral exudates, nose normal. [] Eyes: PERRLA, EOMI, conjunctiva normal, no discharge. [] Neck: Normal range of motion, no tenderness, supple, no stridor. [] Cardiovascular:Heart rate regular rhythm, no murmur [] Lungs & Thorax: Bilateral breath sounds clear to auscultation [] Abdomen: Bowel sounds normal, soft, no tenderness, no masses, no pulsatile masses. Ostomy noted. Skin: Warm, dry, no erythema, no rash. [] Neurologic: Alert and oriented X 3, normal motor function, normal sensory function, no focal deficits noted. [] Psychologic: Affect normal, judgement normal, mood normal. [] Current Patient Data Vital Signs Vital Signs Date Time Temp Pulse Resp B/P (MAP) Pulse Ox O2 Delivery O2 Flow Rate FiO2 10/02/19 20:13 98.6 111 18 163/98 (119) 98 Room Air 98.6 Lab Values Laboratory Tests Test 10/02/19 21:00 White Blood Count 7.4 x10^3/uL (4.0-11.0) Red Blood Count 1.92 x10^6/uL (4.30-5.70) L Hemoglobin 4.9 g/dL (13.0-17.5) Hematocrit 14.3 % (39.0-53.0) *L Mean Corpuscular Volume 75 fL (79-100) L Mean Corpuscular Hemoglobin 25 pg (25-35) Mean Corpuscular Hemoglobin Concent 34 g/dL (31-37) Red Cell Distribution Width 15.5 % (11.5-14.5) H Platelet Count 336 x10^3/uL (140-400) Neutrophils (%) (Auto) 76 % (31-73) H Lymphocytes (%) (Auto) 16 % (24-48) L Monocytes (%) (Auto) 7 % (0-9) Eosinophils (%) (Auto) 1 % (0-3) Basophils (%) (Auto) 1 % (0-3) Neutrophils # (Auto) 5.7 x10^3/uL (1.8-7.7) Lymphocytes # (Auto) 1.1 x10^3/uL (1.0-4.8) Monocytes # (Auto) 0.5 x10^3/uL (0.0-1.1) Eosinophils # (Auto) 0.0 x10^3/uL (0.0-0.7) Basophils # (Auto) 0.1 x10^3/uL (0.0-0.2) Sodium Level 130 mmol/L (136-145) L Potassium Level 3.6 mmol/L (3.5-5.1) Chloride Level 94 mmol/L (98-107) L Carbon Dioxide Level 26 mmol/L (21-32) Anion Gap 10 (6-14) Blood Urea Nitrogen 18 mg/dL (8-26) Creatinine 1.3 mg/dL (0.7-1.3) Estimated GFR (Cockcroft-Gault) 68.8 BUN/Creatinine Ratio 14 (6-20) Glucose Level 106 mg/dL (70-99) H Lactic Acid Level 0.7 mmol/L (0.4-2.0) Calcium Level 8.8 mg/dL (8.5-10.1) Total Bilirubin Pending Aspartate Amino Transferase (AST) Pending Alanine Aminotransferase (ALT) Pending Alkaline Phosphatase Pending Total Protein Pending Albumin Pending Albumin/Globulin Ratio Pending Influenza Type A Antigen Negative (NEGATIVE) Influenza Type B Antigen Negative (NEGATIVE) Laboratory Tests 10/02/19 21:00 Laboratory Tests 10/02/19 21:00 EKG EKG [] Radiology/Procedures Radiology/Procedures [] Course & Med Decision Making Course & Med Decision Making Pertinent Labs and Imaging studies reviewed. (See chart for details) The patient is high risk for infection due to his chemotherapy and colon cancer. Will get labs, chest x-ray, UA, and give supportive care. Hemoglobin comes back is 4.9, the hemoglobin is 10.2 on September 28. Discussed the results with the patient the patient is not symptomatic at this time, and the patient states that he has been having a little bit of dark stool in his ostomy bag. Discussed with Dr. Phoenix about the anemia and he is concerned the patient might be septic. Will order vanc/zosyn and consult ID and Dr. Carter. Will also get fecal occult blood and give 2 units of PRBC. Dragon Disclaimer Dragon Disclaimer This electronic medical record was generated, in whole or in part, using a voice recognition dictation system. Departure Departure Impression: Primary Impression: Anemia Disposition: HOME, SELF-CARE Condition: CRITICAL Referrals: JARED PHOENIX MD (PCP) Problem Qualifiers Primary Impression: Anemia Anemia type: unspecified type Qualified Codes: D64.9 - Anemia, unspecified KANCHAN RASMUSSEN APRN Oct 02, 2019 20:40
[2019-10-02] MEDS ORDERED: IV NORMAL SALINE 1000ML BAG 1,000 ML IV ONE (20:45)
[2019-10-02] MEDS ORDERED: 0.9 % SOD CHL for STERILE FIELD 10 ML DISP.SYRIN. ONE (20:47)
--- NOTE | 2019-10-02 21:17 | RAD ---
Exam: Chest 2 views INDICATION: Cough, fever TECHNIQUE: Frontal and lateral views the chest Comparisons: 10/02/2019 FINDINGS: Right anterior chest wall port with catheter tip at the atrial caval junction. The cardiomediastinal silhouette and pulmonary vessels are within normal limits. The lung and pleural spaces are clear. IMPRESSION: No acute cardiopulmonary process. Electronically signed by: Neva Allen MD (10/02/2019 9:13 PM) [id number]
[2019-10-02 21:30] LABS: CALCIUM 8.8 mg/dL (8.5-10.1); CREATININE 1.3 mg/dL (0.7-1.3); GFR 68.8; POTASSIUM 3.6 mmol/L (3.5-5.1)
[2019-10-02] MEDS ORDERED: fentaNYL PF VIAL 100 MCG/2 ML VIAL IV ONE (21:30)
[2019-10-02 21:35] LABS: BILIRUBIN,URINE NEGATIVE (NEG); CLARITY,URINE CLEAR; COLOR,URINE YELLOW; NITRITE,URINE NEGATIVE (NEG); PROTEIN,URINE 100 mg/dL (NEG-TRACE)
[2019-10-02 21:41] LABS: INFLUENZA A PATIENT NEGATIVE (NEGATIVE); INFLUENZA B PATIENT NEGATIVE (NEGATIVE)
[2019-10-02 21:42] LABS: RBC,URINE >40 /HPF (0-2)
[2019-10-02 21:42] LABS: ALBUMIN 2.7 g/dL (3.4-5.0); ALBUMIN/GLOBULIN RATIO 0.5 (1.0-1.7); TOTAL BILIRUBIN 0.5 mg/dL (0.2-1.0); TOTAL PROTEIN 8.2 g/dL (6.4-8.2)
[2019-10-02 21:44] LABS: BACTERIA,URINE 0 /HPF (0-FEW)
[2019-10-02 21:52] LABS: PROTHROMBIN TIME PATIENT 14.3 SEC (11.7-14.0)
[2019-10-02] MEDS ORDERED: fentaNYL PF VIAL 100 MCG/2 ML VIAL IV PRN (22:00)
[2019-10-02] MEDS ORDERED: ONDANSETRON PF 4 MG/2 ML VIAL. IV PRN (22:00)
[2019-10-02 22:28] LABS: FECAL OB PT NEGATIVE (NEG)
[2019-10-02] MEDS ORDERED: VANCOMYCIN 1.25 GM in IV NORMAL SALINE 500ML BAG 500 ML IV ONE (22:30)
[2019-10-02] MEDS ORDERED: PIPERACILLIN/TAZOBACTAM 3.375 GM in IV NORMAL SALINE 50ML 50 ML IV ONE (22:30)
[2019-10-02 22:47] LABS: BASO % 1 % (0-3); EOS % 1 % (0-3); HEMATOCRIT 24.6 % (39.0-53.0); HEMOGLOBIN 8.2 g/dL (13.0-17.5); LYMPH # 0.9 x10^3/uL (1.0-4.8); LYMPH % 16 % (24-48); MEAN CORPUSCULAR HEMOGLOBIN 25 pg (25-35); MEAN CORPUSCULAR HGB CONC 33 g/dL (31-37); MEAN CORPUSCULAR VOLUME 75 fL (79-100); MONO # 0.4 x10^3/uL (0.0-1.1); MONO % 7 % (0-9); NEUT # 4.2 x10^3/uL (1.8-7.7); NEUT % 76 % (31-73); PLATELET COUNT 265 x10^3/uL (140-400); RED BLOOD COUNT 3.26 x10^6/uL (4.30-5.70); RED CELL DISTRIBUTION WIDTH 15.7 % (11.5-14.5); WHITE BLOOD COUNT 5.5 x10^3/uL (4.0-11.0)
[2019-10-02 23:00] VITALS: BP 155/96
[2019-10-03] MEDS ORDERED: VALA10008 PO (01:21)
[2019-10-03] MEDS ORDERED: AMLO10TA8 PO (01:21)
[2019-10-03 03:43] VITALS: BP 139/84
[2019-10-03 07:00] VITALS: BP 143/94
--- NOTE | 2019-10-03 07:30 | NUR ---
Received ok orders during the noc to hold transfusion and recheck CBC in am. Called in am to get ok to draw from PORT however need to get ok from Dr. Carter. No new orders at this time.
[2019-10-03 08:34] LABS: BASO % 1 % (0-3); EOS % 1 % (0-3); HEMATOCRIT 25.8 % (39.0-53.0); HEMOGLOBIN 8.4 g/dL (13.0-17.5); LYMPH % 20 % (24-48); MEAN CORPUSCULAR HEMOGLOBIN 25 pg (25-35); MEAN CORPUSCULAR HGB CONC 33 g/dL (31-37); MEAN CORPUSCULAR VOLUME 75 fL (79-100); MONO # 0.4 x10^3/uL (0.0-1.1); MONO % 9 % (0-9); NEUT # 3.6 x10^3/uL (1.8-7.7); NEUT % 70 % (31-73); PLATELET COUNT 282 x10^3/uL (140-400); RED BLOOD COUNT 3.42 x10^6/uL (4.30-5.70); RED CELL DISTRIBUTION WIDTH 15.7 % (11.5-14.5); WHITE BLOOD COUNT 5.1 x10^3/uL (4.0-11.0)
[2019-10-03] MEDS: CETIRIZINE HCL 10 MG TABLET. PO SCH (08:52)
[2019-10-03] MEDS: valACYclovir 500 MG TABLET. PO SCH ×2 (08:52→21:32)
[2019-10-03] MEDS: FLUTICASONE 50MCG/NASAL SPRAY 16GM BOTTLE. NS SCH (08:53)
[2019-10-03] MEDS ORDERED: SODIUM CHLORIDE 0.65% NASAL SPRAY 45ML BOTTLE. NS PRN (09:00)
--- NOTE | 2019-10-03 09:03 | PDOC ---
Infectious Disease Note Vital Sign Vital Signs Vital Signs Date Time Temp Pulse Resp B/P (MAP) Pulse Ox O2 Delivery O2 Flow Rate FiO2 10/03/19 03:43 99.4 101 18 139/84 (102) 97 Room Air 99.4 Labs Lab Laboratory Tests Test 10/02/19 21:00 10/02/19 21:20 10/02/19 22:05 10/02/19 22:35 Prothrombin Time 14.3 SEC (11.7-14.0) Prothromb Time International Ratio 1.2 (0.8-1.1) Activated Partial Thromboplast Time 30 SEC (24-38) Sodium Level 130 mmol/L (136-145) Potassium Level 3.6 mmol/L (3.5-5.1) Chloride Level 94 mmol/L (98-107) Carbon Dioxide Level 26 mmol/L (21-32) Anion Gap 10 (6-14) Blood Urea Nitrogen 18 mg/dL (8-26) Creatinine 1.3 mg/dL (0.7-1.3) Estimated GFR (Cockcroft-Gault) 68.8 BUN/Creatinine Ratio 14 (6-20) Glucose Level 106 mg/dL (70-99) Lactic Acid Level 0.7 mmol/L (0.4-2.0) Calcium Level 8.8 mg/dL (8.5-10.1) Total Bilirubin 0.5 mg/dL (0.2-1.0) Aspartate Amino Transf (AST/SGOT) 156 U/L (15-37) Alanine Aminotransferase (ALT/SGPT) 129 U/L (16-63) Alkaline Phosphatase 585 U/L (46-116) Total Protein 8.2 g/dL (6.4-8.2) Albumin 2.7 g/dL (3.4-5.0) Albumin/Globulin Ratio 0.5 (1.0-1.7) Influenza Type A Antigen Negative (NEGATIVE) Influenza Type B Antigen Negative (NEGATIVE) Urine Collection Type Unknown Urine Color Yellow Urine Clarity Clear Urine pH 6.0 Urine Specific [place] 1.015 Urine Protein 100 mg/dL (NEG-TRACE) Urine Glucose (UA) Negative mg/dL (NEG) Urine Ketones (Stick) Negative mg/dL (NEG) Urine Blood Large (NEG) Urine Nitrite Negative (NEG) Urine Bilirubin Negative (NEG) Urine Urobilinogen Dipstick 1.0 mg/dL (0.2 mg/dL) Urine Leukocyte Esterase Moderate (NEG) Urine RBC >40 /HPF (0-2) Urine WBC 1-4 /HPF (0-4) Urine Bacteria 0 /HPF (0-FEW) Urine Mucus Slight /LPF Stool Occult Blood Negative (NEG) White Blood Count 5.5 x10^3/uL (4.0-11.0) Red Blood Count 3.26 x10^6/uL (4.30-5.70) Hemoglobin 8.2 g/dL (13.0-17.5) Hematocrit 24.6 % (39.0-53.0) Mean Corpuscular Volume 75 fL (79-100) Mean Corpuscular Hemoglobin 25 pg (25-35) Mean Corpuscular Hemoglobin Concent 33 g/dL (31-37) Red Cell Distribution Width 15.7 % (11.5-14.5) Platelet Count 265 x10^3/uL (140-400) Neutrophils (%) (Auto) 76 % (31-73) Lymphocytes (%) (Auto) 16 % (24-48) Monocytes (%) (Auto) 7 % (0-9) Eosinophils (%) (Auto) 1 % (0-3) Basophils (%) (Auto) 1 % (0-3) Neutrophils # (Auto) 4.2 x10^3/uL (1.8-7.7) Lymphocytes # (Auto) 0.9 x10^3/uL (1.0-4.8) Monocytes # (Auto) 0.4 x10^3/uL (0.0-1.1) Eosinophils # (Auto) 0.0 x10^3/uL (0.0-0.7) Basophils # (Auto) 0.0 x10^3/uL (0.0-0.2) Test 10/03/19 07:45 White Blood Count 5.1 x10^3/uL (4.0-11.0) Red Blood Count 3.42 x10^6/uL (4.30-5.70) Hemoglobin 8.4 g/dL (13.0-17.5) Hematocrit 25.8 % (39.0-53.0) Mean Corpuscular Volume 75 fL (79-100) Mean Corpuscular Hemoglobin 25 pg (25-35) Mean Corpuscular Hemoglobin Concent 33 g/dL (31-37) Red Cell Distribution Width 15.7 % (11.5-14.5) Platelet Count 282 x10^3/uL (140-400) Neutrophils (%) (Auto) 70 % (31-73) Lymphocytes (%) (Auto) 20 % (24-48) Monocytes (%) (Auto) 9 % (0-9) Eosinophils (%) (Auto) 1 % (0-3) Basophils (%) (Auto) 1 % (0-3) Neutrophils # (Auto) 3.6 x10^3/uL (1.8-7.7) Lymphocytes # (Auto) 1.0 x10^3/uL (1.0-4.8) Monocytes # (Auto) 0.4 x10^3/uL (0.0-1.1) Eosinophils # (Auto) 0.0 x10^3/uL (0.0-0.7) Basophils # (Auto) 0.0 x10^3/uL (0.0-0.2) Objective Assessment Fever Immunosuppression s/p Chemo 09/23 and port flushed 09/26 - uncertain if he has had Neulasta ? Sinusitis CKD Colon CA Recent abx for H-pylori and sinsus congested on abx Recent left oral ulcer better with Valtrex Plan Plan of Care Dose Vanc and Cefepime (adjust for renal function) [place] nasal spray Cont Valtrex Electrolytes per primary F/u labs and cults Thank you # [id number] SABINO DENG MD Oct 03, 2019 09:03
[2019-10-03 09:44] LABS: CREATININE 1.3 mg/dL (0.7-1.3); GFR 68.8
[2019-10-03] MEDS: VANCOMYCIN PER PHARMACY MC PRN ×2 (09:50→14:24)
[2019-10-03] MEDS: CEFEPIME HCL IV Push 1 GM VIAL. IVP SCH ×3 (09:58→21:39)
--- NOTE | 2019-10-03 10:03 | NUR ---
Pharmacy Vancomycin Dosing Note S:Consulted to monitor and dose vancomycin started 10/03/19. O:BABAR FRAZIER is a 59 year old M with SINUSITIS . Height: 5 feet, 6 inches Weight: 52.6 kg [place] Body Weight: 63.80 Adjusted Body Weight: 59.32 Dosing Weight: Actual Other Antibiotics: CEFEPIME LABS: Last BUN: Last Creatinine: 1.3 Creatinine Clearance: 46 mL/min Last WBC: 5.1 Last Procalcitonin: Tmax (past 24 hours): 99.6 Microbiology: I/O: 1240 Drug Levels: Last level: on at Last dose given 10/03/19 at 0200 Vancomycin Dosing: Loading Dose: 1250 mg x1 Dosing Weight: Actual Target Trough: 15-20 A: Based on: WEIGH AND RENAL FUNCTION, 1.25GM IV BOLUS GIVEN, P: 1. Begin Vancomycin 750 mg IV q24h TONIGHT 2. Follow up Trough level on 10/05/19 at 0130 3. Pharmacy will continue to monitor, follow and adjust therapy as needed. MAYTE ALFONSO [facility], 10/03/19 [id number]
--- NOTE | 2019-10-03 10:15 | CONS ---
DATE OF CONSULTATION: 10/03/2019 ROOM: 660. REQUESTING PHYSICIAN: Dr. Ayers. REASON FOR CONSULTATION: Questionable sepsis. HISTORY OF PRESENT ILLNESS: The patient is a pleasant 59-year-old gentleman, recently diagnosed with colon cancer, underwent a liver biopsy on 09/17 and also has had a Port-A-Cath placed. On 09/23, he underwent chemotherapy and states this ran until about Sunday when they flushed his port. Of note, last week, he developed a left oral ulceration, began taking Valtrex, which has improved the ulcer. Additionally, recently diagnosed with H. pylori and he had been taking antimicrobials for this; however, despite taking the antimicrobial he developed a sinus infection. About 2 days ago, he began to feel febrile, more sinus congestion, has minimal cough, was more dry, felt weak, but presented to [facility] Emergency Room on the secondary to ongoing fevers and cough. On arrival, white blood cell was 5.5 with 76 segs and 16 lymphs. Sodium was 130. Urinalysis without bacteria. Influenza screen was negative. Temperature, T-max of 99.6. Cultures were obtained. Chest x-ray did not show any acute cardiopulmonary process. He was admitted to the hospital, given a dose of vancomycin and Zosyn. Valtrex has been continued. Currently, the patient is sitting upright in the side of the bed, states that he still feels a little sinus congestion and sometimes a little bloody drainage from his nose, but he has no pain when he bites. No sore throat. No gross shortness of air. No nausea, vomiting, no diarrhea. No dysuria, frequency or urgency. Denies any rashes, no joint inflammation. PAST MEDICAL HISTORY: Positive for hypercholesterolemia, hypertension, hypothyroidism, the above-mentioned colon cancer, H. pylori, they were oral ulceration, seasonal allergies. He did not discuss with me his hyperlipidemia or hypothyroidism that was reviewed in the Emergency Room note. PAST SURGICAL HISTORY: Positive for the liver biopsy, Port-A-Cath placement, wisdom tooth extraction, neck fusion C4-C5. REVIEW OF SYSTEMS: Otherwise negative. ALLERGIES: No known drug allergies. SOCIAL HISTORY: Denies any tobacco, alcohol or drug use. He has no pets. Worked previously in environmental services. No construction history. No farming history. No history. He has not traveled overseas. Denies any ill contacts. CURRENT MEDICATIONS: Again, vancomycin and Zosyn x 1. He is on Valtrex. PHYSICAL EXAMINATION: VITAL SIGNS: T-max was 99.6, currently 99.4, pulse 101, respirations 18, blood pressure 139/84. Had been elevated to the 170s/90s, satting 97% on room air. CONSTITUTIONAL: He is sitting upright on the side of bed, wears glasses. HEENT: Pupils equal and reactive. He has normal conjunctivae. Oral cavity, pharynx, he has good dentition. No signs of any oral ulcers at this point. NECK: Supple. Good range of motion. LUNGS: Clear to auscultation bilaterally. NECK: Without JVD. HEART: S1, S2, mild tachy. Port-A-Cath, right chest without signs of any complications. ABDOMEN: Soft, nontender, no guarding. Positive bowel sounds. EXTREMITIES: Thin, no clubbing, cyanosis or gross edema. SKIN: Warm to touch without generalized rash. NEUROLOGIC: He is nonfocal and appropriate. PSYCHIATRIC: Affect is pleasant. LABORATORY DATA: White count 5.5, hemoglobin 8.2, platelets 265, neutrophils are 76, lymphs are 16. Sodium was 130. Creatinine 1.3, glucose 106, AST 156, down from 192, ALT 129, down from 168, alkaline phosphatase 585 down from 634. Urinalysis was clean. Influenza was negative. Previous hepatitis screens had been negative, nitrite negative. X-ray negative. IMPRESSION: 1. Fever. 2. Immunosuppression, status post chemotherapy on 09/23 and port flushed 09/26. Uncertain if he has had Neulasta. 3. Questionable Sinusitis. 4. Chronic kidney disease. 5. Colon cancer. 6. Recent antibiotics for H. pylori and sinus congestion, on antibiotics. 7. Recent left oral ulcer, better with Valtrex. RECOMMENDATIONS: We will dose vancomycin and cefepime, adjust for renal function, also get some [place] nasal spray, continue the Valtrex. Electrolytes per primary. Follow up labs and cultures. Thank you for allowing me to participate in the patient's care. Should you have further concerns or questions, please do not hesitate to contact me. SABINO DENG MD DR: Tala JOB#: [id number] / [id number]
--- NOTE | 2019-10-03 10:43 | CONS ---
DATE OF CONSULTATION: 10/03/2019 REQUESTING PHYSICIAN: Georgiana Ayers MD REASON FOR CONSULTATION: Anemia and stage 4 colon cancer. HISTORY OF PRESENT ILLNESS: The patient is a 59-year-old -[place] gentleman who has had constipation since May of 2019, and he underwent a colonoscopy by Dr. Federico Joseph on 08/11/2019 that revealed a large obstructing mass in the mid sigmoid colon and biopsy revealed moderately differentiated adenocarcinoma. CT scan of the chest, abdomen, and pelvis on 08/14/2019 revealed sigmoid colon mass with extracolonic extension resulting in obstruction of the left distal ureter and numerous hepatic metastases and possibly left lower lobe pulmonary metastatic deposit as well. He underwent left-sided ureteral stent placement for management of hydronephrosis on 08/20/[address] Lydia Kaur at [facility]. He was started on palliative chemotherapy with FOLFOX and Avastin on 09/24/2019. He was admitted to [facility] on 10/02/2019 with complaints of fever of 100.9. Chest x-ray was unremarkable in the Emergency Room. He was admitted and started on antibiotics with vancomycin and cefepime by Infectious Diseases. His hemoglobin was noted to be 8.2 and I was asked to see the patient for further evaluation. PAST MEDICAL HISTORY: Hypothyroidism and hypertension. FAMILY HISTORY: Positive for breast cancer and lung cancer in his maternal aunt. SOCIAL HISTORY: He is single. Never smoker. No alcohol abuse. REVIEW OF SYSTEMS: A 12-point review of systems was performed. Pertinent positives are mentioned in the history of present illness. Rest of the system review is negative. PHYSICAL EXAMINATION: GENERAL APPEARANCE: The patient is a 59-year-old -[place] gentleman who is in no acute cardiorespiratory distress. VITAL SIGNS: Blood pressure 139/84 and temperature 99.4. HEAD: Atraumatic and normocephalic. EYES: No icterus. NECK: Supple. CHEST: Bilaterally symmetrical. HEART: S1, S2 normal. ABDOMEN: Soft and nontender. CENTRAL NERVOUS SYSTEM: No focal deficits. LYMPHATICS: No lymphadenopathy. SKIN: No rashes. PSYCHOLOGIC: Mood and affect are appropriate. LABORATORY DATA: WBC 5.1, hemoglobin 8.4, and platelet count 282. Creatinine 1.3, calcium 8.8, total bilirubin 0.5, AST 156, ALT 129, alkaline phosphatase 585, and albumin 2.7. CEA level 171 on 09/29/2019. IMPRESSION AND PLAN: 1. T4b N2a M1b, stage 4B, moderately differentiated adenocarcinoma of the sigmoid colon diagnosed on 08/11/2019 with extensive metastatic disease to the liver and a possible solitary metastatic focus in the lung. There is also involvement of the left distal ureter resulting in obstruction and hydronephrosis, requiring a stent placement. His biomarkers were all unremarkable. MMR proficient, BRAF negative, KRAS negative, and NRAS negative. He was started on chemotherapy with FOLFOX and Avastin on 09/24/2019. He is now admitted with febrile illness due to immunocompromised status from chemotherapy. I discussed with Dr. Binu Esquivel and the patient is on antibiotics with vancomycin and cefepime. Continue to monitor and continue management regarding fever by Infectious Diseases. He will follow up with me next week and plan to proceed with chemo if he is feeling better. 2. Fever, likely from sinusitis. Appreciate Infectious Disease consultation. I discussed with Dr. Esquivel. 3. Left ureteral obstruction due to malignancy, status post stent placement on 08/20/2019. 4. Helicobacter pylori, status post antibiotic treatments per Dr. Federico Joseph. 5. Anemia. Hemoglobin 8.4. No need for transfusion at this time. No signs of bleeding. Continue to monitor. MECHE COELLO MD DR: TERRI/nts JOB#: [id number] / [id number]
[2019-10-03 11:00] VITALS: BP 143/95
--- NOTE | 2019-10-03 14:33 | NUR ---
SS following for discharge planning. SS reviewed pt chart. Pt is from home and is currently on room air. SS will continue to follow for discharge planning.
[2019-10-03 15:00] VITALS: BP 143/91
--- NOTE | 2019-10-03 17:07 | PDOC ---
Provider Note Provider Note H&P dictated #[id number] JARED PHOENIX MD Oct 03, 2019 17:07
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
[2019-10-03 19:00] VITALS: BP 155/96
[2019-10-03] MEDS ORDERED: amLODIPine BESYLATE 10 MG TABLET PO SCH (21:00)
[2019-10-03] MEDS: ACETAMINOPHEN 325 MG TABLET. PO PRN (21:32)
[2019-10-03 23:05] VITALS: BP 140/90
[2019-10-04] MEDS ORDERED: VANCOMYCIN 750 MG in IV NORMAL SALINE 250ML 250 ML IV SCH (02:00)
[2019-10-04 03:08] VITALS: BP 128/81
[2019-10-04] MEDS: ACETAMINOPHEN 325 MG TABLET. PO PRN (04:36)
[2019-10-04] MEDS: CEFEPIME HCL IV Push 1 GM VIAL. IVP SCH ×2 (06:44→12:57)
[2019-10-04 07:00] VITALS: BP 135/89
[2019-10-04 08:48] LABS: BASO % 1 % (0-3); EOS # 0.1 x10^3/uL (0.0-0.7); EOS % 2 % (0-3); HEMATOCRIT 26.2 % (39.0-53.0); HEMOGLOBIN 8.7 g/dL (13.0-17.5); LYMPH % 19 % (24-48); MEAN CORPUSCULAR HEMOGLOBIN 25 pg (25-35); MEAN CORPUSCULAR HGB CONC 33 g/dL (31-37); MEAN CORPUSCULAR VOLUME 75 fL (79-100); MONO # 0.4 x10^3/uL (0.0-1.1); MONO % 7 % (0-9); NEUT # 3.5 x10^3/uL (1.8-7.7); NEUT % 71 % (31-73); PLATELET COUNT 304 x10^3/uL (140-400); RED BLOOD COUNT 3.49 x10^6/uL (4.30-5.70); RED CELL DISTRIBUTION WIDTH 15.4 % (11.5-14.5)
[2019-10-04 09:01] LABS: ALBUMIN 2.8 g/dL (3.4-5.0); ALBUMIN/GLOBULIN RATIO 0.5 (1.0-1.7); CALCIUM 9.6 mg/dL (8.5-10.1); CREATININE 1.3 mg/dL (0.7-1.3); GFR 68.8; POTASSIUM 3.4 mmol/L (3.5-5.1); TOTAL BILIRUBIN 0.8 mg/dL (0.2-1.0); TOTAL PROTEIN 8.6 g/dL (6.4-8.2)
[2019-10-04] MEDS: CETIRIZINE HCL 10 MG TABLET. PO SCH (09:11)
[2019-10-04] MEDS: FLUTICASONE 50MCG/NASAL SPRAY 16GM BOTTLE. NS SCH (09:11)
[2019-10-04] MEDS: valACYclovir 500 MG TABLET. PO SCH (09:11)
--- NOTE | 2019-10-04 10:54 | PDOC ---
Infectious Disease Note Subjective Subjective Hoping to go home today Feeling better Some sinus congestion No fevers/chills last 24 hours Eating about half of meals ROS ROS per HPI Vital Sign Vital Signs Vital Signs Date Time Temp Pulse Resp B/P (MAP) Pulse Ox O2 Delivery O2 Flow Rate FiO2 10/04/19 07:00 97.7 95 18 135/89 (104) 100 Room Air 97.7 Physical Exam PHYSICAL EXAM GENERAL: Sitting on the side of the bed, alert in NAD HEENT: Pupils equal and reactive. He has normal conjunctivae. Oral cavity, pharynx, he has good dentition. No clear lesions noted NECK: Supple. Good range of motion. LUNGS: Clear to auscultation bilaterally. HEART: S1, S2, ABDOMEN: Soft, nontender, no guarding. Positive bowel sounds, ostomy EXTREMITIES: Thin, no clubbing, cyanosis or gross edema. SKIN: Warm to touch without generalized rash. NEUROLOGIC: He is nonfocal and appropriate. Port-a-cath clean Labs Lab Laboratory Tests Test 10/04/19 07:30 White Blood Count 5.0 x10^3/uL (4.0-11.0) Red Blood Count 3.49 x10^6/uL (4.30-5.70) Hemoglobin 8.7 g/dL (13.0-17.5) Hematocrit 26.2 % (39.0-53.0) Mean Corpuscular Volume 75 fL (79-100) Mean Corpuscular Hemoglobin 25 pg (25-35) Mean Corpuscular Hemoglobin Concent 33 g/dL (31-37) Red Cell Distribution Width 15.4 % (11.5-14.5) Platelet Count 304 x10^3/uL (140-400) Neutrophils (%) (Auto) 71 % (31-73) Lymphocytes (%) (Auto) 19 % (24-48) Monocytes (%) (Auto) 7 % (0-9) Eosinophils (%) (Auto) 2 % (0-3) Basophils (%) (Auto) 1 % (0-3) Neutrophils # (Auto) 3.5 x10^3/uL (1.8-7.7) Lymphocytes # (Auto) 1.0 x10^3/uL (1.0-4.8) Monocytes # (Auto) 0.4 x10^3/uL (0.0-1.1) Eosinophils # (Auto) 0.1 x10^3/uL (0.0-0.7) Basophils # (Auto) 0.0 x10^3/uL (0.0-0.2) Sodium Level 137 mmol/L (136-145) Potassium Level 3.4 mmol/L (3.5-5.1) Chloride Level 98 mmol/L (98-107) Carbon Dioxide Level 25 mmol/L (21-32) Anion Gap 14 (6-14) Blood Urea Nitrogen 20 mg/dL (8-26) Creatinine 1.3 mg/dL (0.7-1.3) Estimated GFR (Cockcroft-Gault) 68.8 BUN/Creatinine Ratio 15 (6-20) Glucose Level 108 mg/dL (70-99) Calcium Level 9.6 mg/dL (8.5-10.1) Total Bilirubin 0.8 mg/dL (0.2-1.0) Aspartate Amino Transf (AST/SGOT) 116 U/L (15-37) Alanine Aminotransferase (ALT/SGPT) 112 U/L (16-63) Alkaline Phosphatase 579 U/L (46-116) Total Protein 8.6 g/dL (6.4-8.2) Albumin 2.8 g/dL (3.4-5.0) Albumin/Globulin Ratio 0.5 (1.0-1.7) Micro Microbiology 10/03/19 Blood Culture - Preliminary, Resulted NO GROWTH AFTER 1 DAY Objective Assessment Fever - better Immunosuppression, status post chemotherapy on 09/23 and port flushed 09/26. Uncertain if he has had Neulasta. Questionable Sinusitis. Chronic kidney disease. Colon cancer. Recent antibiotics for H. pylori and sinus congestion, on antibiotics. Recent left oral ulcer, better with Valtrex. Plan Plan of Care Vanc and Cefepime (adjust for renal function) [place] nasal spray Cont Valtrex Electrolytes per primary F/u labs and cults Attending Co-Sign The patient was seen and interviewed as well as examined at the bedside. The chart was reviewed. The case was discussed. Agree with the plan of care. d/c JEANINE Alba APRN Oct 04, 2019 10:54 JUAN FLAHERTY MD Oct 04, 2019 12:59
--- NOTE | 2019-10-04 10:59 | PDOC ---
PROGRESS NOTES Subjective Subjective feels better today Objective Objective Vital Signs Date Time Temp Pulse Resp B/P (MAP) Pulse Ox O2 Delivery O2 Flow Rate FiO2 10/04/19 07:00 97.7 95 18 135/89 (104) 100 Room Air 97.7 Intake and Output 10/04/19 07:00 Output Total 0 ml Balance 0 ml Output Urine Total 0 ml # Voids 2 Physical Exam Abdomen: Normal bowel sounds, Soft Heart: Regular rate, Normal S1, Normal S2 Extremities: No clubbing General: Alert HEENT: Atraumatic Lungs: Clear to auscultation MUSCULOSKELETAL: No swelling Neck: Supple Neuro: Normal speech Psych/Mental Status: Mental status NL Skin: No breakdown Assessment Assessment IMPRESSION: 1. Fever in a patient who is immun suppressed due to chemotherapy on 09/24/2019 2. Acute bacterial Sinusitis. 3. Left oral ulcer, better with Valtrex. 4. Colon cancer with metastasis. 5. Anemia. 6. Hypertension. 7. Chronic kidney disease stage 3. 8. Hyperlipidemia. 9. Allergic rhinitis. 10. Elevated liver function tests. PLAN: replace pot 3.4 Continue IV vancomycin and cefepime. ID consult appreciated. oncology consult appreciated. labs reviewed. Comment Review of Relevant I have reviewed the following items joanne (where applicable) has been applied. Labs Laboratory Tests Test 10/04/19 07:30 White Blood Count 5.0 x10^3/uL (4.0-11.0) Red Blood Count 3.49 x10^6/uL (4.30-5.70) Hemoglobin 8.7 g/dL (13.0-17.5) Hematocrit 26.2 % (39.0-53.0) Mean Corpuscular Volume 75 fL (79-100) Mean Corpuscular Hemoglobin 25 pg (25-35) Mean Corpuscular Hemoglobin Concent 33 g/dL (31-37) Red Cell Distribution Width 15.4 % (11.5-14.5) Platelet Count 304 x10^3/uL (140-400) Neutrophils (%) (Auto) 71 % (31-73) Lymphocytes (%) (Auto) 19 % (24-48) Monocytes (%) (Auto) 7 % (0-9) Eosinophils (%) (Auto) 2 % (0-3) Basophils (%) (Auto) 1 % (0-3) Neutrophils # (Auto) 3.5 x10^3/uL (1.8-7.7) Lymphocytes # (Auto) 1.0 x10^3/uL (1.0-4.8) Monocytes # (Auto) 0.4 x10^3/uL (0.0-1.1) Eosinophils # (Auto) 0.1 x10^3/uL (0.0-0.7) Basophils # (Auto) 0.0 x10^3/uL (0.0-0.2) Sodium Level 137 mmol/L (136-145) Potassium Level 3.4 mmol/L (3.5-5.1) Chloride Level 98 mmol/L (98-107) Carbon Dioxide Level 25 mmol/L (21-32) Anion Gap 14 (6-14) Blood Urea Nitrogen 20 mg/dL (8-26) Creatinine 1.3 mg/dL (0.7-1.3) Estimated GFR (Cockcroft-Gault) 68.8 BUN/Creatinine Ratio 15 (6-20) Glucose Level 108 mg/dL (70-99) Calcium Level 9.6 mg/dL (8.5-10.1) Total Bilirubin 0.8 mg/dL (0.2-1.0) Aspartate Amino Transf (AST/SGOT) 116 U/L (15-37) Alanine Aminotransferase (ALT/SGPT) 112 U/L (16-63) Alkaline Phosphatase 579 U/L (46-116) Total Protein 8.6 g/dL (6.4-8.2) Albumin 2.8 g/dL (3.4-5.0) Albumin/Globulin Ratio 0.5 (1.0-1.7) Microbiology 10/03/19 Blood Culture - Preliminary, Resulted NO GROWTH AFTER 1 DAY Medications Current Medications Amlodipine Besylate (Norvasc) 10 mg HS PO Last administered on 10/03/19at 21:33; Start 10/03/19 at 21:00 Vancomycin HCl (Vancomycin Trough Level) 1 each 1X ONCE MC ; Start 10/05/19 at 01:30; Stop 10/05/19 at 01:31 Vancomycin HCl 750 mg/Sodium Chloride 250 ml @ 250 mls/hr Q24H IV Last administered on 10/04/19at 03:14; Start 10/04/19 at 02:00 Vitals/I & O Vital Sign - Last 24 Hours 10/03/19 10/03/19 10/03/19 10/03/19 11:00 15:00 19:00 20:00 Temp 99.7 99.2 98.4 99.7 99.2 98.4 Pulse 108 101 108 Resp 16 16 18 B/P (MAP) 143/95 (111) 143/91 (108) 155/96 (115) Pulse Ox 98 95 98 O2 Delivery Room Air Room Air 10/03/19 10/03/19 10/04/19 10/04/19 21:33 23:05 03:08 07:00 Temp 98.9 98.8 97.7 98.9 98.8 97.7 Pulse 108 104 101 95 Resp 20 20 18 B/P (MAP) 155/96 140/90 (107) 128/81 (97) 135/89 (104) Pulse Ox 97 95 100 O2 Delivery Room Air Room Air Room Air Intake and Output 10/03/19 10/03/19 10/04/19 15:00 23:00 07:00 Output Total 0 ml Balance 0 ml Nutrition Consultation Dietary Evaluation: Recommendations by RD: Dietary education by RD, Increase Calorie Intake, Protein supplementation Comments: sending ensure enlive tid and ensure pudding bid honor food choices, offer snacks/ supplements from unit prn Expected Outcomes/Goals: to meet >75% est nutr needs Malnutrition Findings: Body Fat Depletion (Non Severe: Mild Depletion Weight Status: Appropriate MALA TAPIA MD Oct 04, 2019 10:59
[2019-10-04 11:00] VITALS: BP 155/91
[2019-10-04] MEDS ORDERED: POTASSIUM CHLORIDE 20 MEQ TABLET.ER. PO ONE (11:00)
[2019-10-04] MEDS: VANCOMYCIN PER PHARMACY MC PRN (12:56)
[2019-10-04 15:00] VITALS: BP 147/94
[2019-10-04] MEDS ORDERED: AMOX1TAB58 PO (17:08)
[2019-10-04] MEDS ORDERED: HEPARIN PF 500 UNIT/5 ML DISP.SYRIN. IVP ONE (19:00)
[2019-10-04 19:30] VITALS: BP 146/88
--- NOTE | 2019-10-04 19:59 | NUR ---
Discharge Note: BABAR FRAZIER Discharge instructions and discharge home medications reviewed with Patient and a copy given. All questions have been answered and understanding verbalized. The following instructions and handouts were given: discharge instructions and education material on Sepsis and Malnutrition. Patient received a handwritten prescription for Augmentin. Patient was cleared to discharge by physicians: ID and PCP. Discontinued lines and drains: catheter tip intact. Patient tolerated well with the Saline flush and Heparin flush and the removal of catheter. Patient discharged to home with self care via personal vehicle with family. Patient with followup with PCP and Oncology for outpatient care.
[2019-10-04] MEDS ORDERED: AMOXICILLIN/K CLAV 500/125MG TABLET. PO SCH (21:00)
== END 2019-10-04 20:08 | disposition home or self-care (01) | DRG 375 ==
LOC: ER 20:03 → 6 SOUTH 21:44
PROVIDERS: ADMIT Internal Medicine; ATTEND Internal Medicine
DX: C18.7 Malignant neoplasm of sigmoid colon (principal); C78.7 Secondary malignant neoplasm of liver and intrahepatic bile duct; N13.30 Unspecified hydronephrosis; B00.1 Herpesviral vesicular dermatitis; D64.9 Anemia, unspecified; E03.9 Hypothyroidism, unspecified; E78.00 Pure hypercholesterolemia, unspecified; E78.5 Hyperlipidemia, unspecified; I12.9 Hypertensive chronic kidney disease with stage 1 through stage 4 chronic kidney disease, or unspecified chronic kidney disease; J01.90 Acute sinusitis, unspecified; J30.9 Allergic rhinitis, unspecified; K12.1 Other forms of stomatitis; K59.00 Constipation, unspecified; N18.3 Chronic kidney disease, stage 3 (moderate); T45.1X5A Adverse effect of antineoplastic and immunosuppressive drugs, initial encounter; Z80.1 Family history of malignant neoplasm of trachea, bronchus and lung; Z80.3 Family history of malignant neoplasm of breast; Z82.49 Family history of ischemic heart disease and other diseases of the circulatory system; Z83.3 Family history of diabetes mellitus; Z85.038 Personal history of other malignant neoplasm of large intestine; Z93.3 Colostomy status; Z98.1 Arthrodesis status
CPT/HCPCS: 36415; 71046; 80048; 80053; 81001; 82274; 83605; 85025; 85610; 85730; 86850; 86900; 86901; 86920; 87040; 87086; 87804; 96361; 96374; 99285; J0692; J1642; J2543; J3010; J3370; J7030; J7040; J7050; G0378

== ENCOUNTER → 2019-10-06 | Outpatient (CLI) | payer OTHER ==
[2019-10-04 19:30] VITALS: BP 146/88
[~2019-10-06] MED LIST changes: +AMOX1TAB58 PO; +VALA10008 PO
[2019-10-06 11:47] LABS: BASO % 1 % (0-3); EOS # 0.1 x10^3/uL (0.0-0.7); EOS % 2 % (0-3); HEMATOCRIT 26.3 % (39.0-53.0); HEMOGLOBIN 8.6 g/dL (13.0-17.5); LYMPH # 0.9 x10^3/uL (1.0-4.8); LYMPH % 23 % (24-48); MEAN CORPUSCULAR HEMOGLOBIN 25 pg (25-35); MEAN CORPUSCULAR HGB CONC 33 g/dL (31-37); MEAN CORPUSCULAR VOLUME 76 fL (79-100); MONO # 0.4 x10^3/uL (0.0-1.1); MONO % 11 % (0-9); NEUT # 2.5 x10^3/uL (1.8-7.7); NEUT % 63 % (31-73); PLATELET COUNT 443 x10^3/uL (140-400); RED BLOOD COUNT 3.44 x10^6/uL (4.30-5.70); RED CELL DISTRIBUTION WIDTH 15.9 % (11.5-14.5); WHITE BLOOD COUNT 3.9 x10^3/uL (4.0-11.0)
[2019-10-06 12:23] LABS: CALCIUM 9.5 mg/dL (8.5-10.1); CREATININE 1.4 mg/dL (0.7-1.3); GFR 63.2; POTASSIUM 3.4 mmol/L (3.5-5.1); TOTAL BILIRUBIN 0.4 mg/dL (0.2-1.0)
[2019-10-06 12:32] LABS: ALBUMIN 2.9 g/dL (3.4-5.0); ALBUMIN/GLOBULIN RATIO 0.5 (1.0-1.7)
[2019-10-06 12:43] LABS: BILIRUBIN,URINE NEGATIVE (NEG); CLARITY,URINE CLEAR; COLOR,URINE YELLOW; NITRITE,URINE NEGATIVE (NEG); PH,URINE 5.5; PROTEIN,URINE 100 mg/dL (NEG-TRACE); UROBILINOGEN,URINE 0.2 mg/dL (0.2 mg/dL)
[2019-10-06 13:11] LABS: GRANULAR CASTS,URINE OCCASIONAL /HPF
[2019-10-06 13:12] LABS: BACTERIA,URINE FEW /HPF (0-FEW); HYALINE CASTS, URINE OCCASIONAL /HPF
== END | disposition home or self-care (01) ==
LOC: LAB 11:16
PROVIDERS: ATTEND Internal Medicine Hematology & Oncology
DX: C18.7 Malignant neoplasm of sigmoid colon (principal)
CPT/HCPCS: 36415; 80053; 81001; 82378; 85025

== ENCOUNTER → 2019-10-24 | Outpatient (CLI) | payer OTHER ==
[2019-10-22 08:56] VITALS: BP 123/70
[2019-10-25 01:07] LABS: UR PROTEIN 32.7 mg/dL (Not Estab.)
== END | disposition home or self-care (01) ==
LOC: LAB 13:31
PROVIDERS: ATTEND Nurse Practitioner Adult Health
DX: R80.9 Proteinuria, unspecified (principal)
CPT/HCPCS: 84156

== ENCOUNTER → 2019-11-25 | Outpatient (CLI) | payer OTHER ==
[2019-11-19 11:48] VITALS: BP 120/71
[~2019-11-25] MED LIST changes: +MAGN400T17 PO; +POTA20TA4 PO
== END | disposition home or self-care (01) ==
LOC: LAB 14:42
PROVIDERS: ATTEND Urology
DX: N13.39 Other hydronephrosis (principal)
CPT/HCPCS: 87086

== ENCOUNTER 2019-11-26 15:04 | Emergency (ER) | payer OTHER ==
[~2019-11-26] VITALS: Ht 167.6 cm; Wt 51.0 kg
[~2019-11-26 15:04] MED LIST changes: -IOHEXOL 240 MG/ML 50ML VIAL. PO ONE; -IOHEXOL 300 MG/ML 100ML VIAL. IV ONE; -MAGN400T17 PO; -POTA20TA4 PO
[2019-11-26] MEDS ORDERED: IV NORMAL SALINE 1000ML BAG 1,000 ML IV SCH (15:21)
--- NOTE | 2019-11-26 15:27 | PHYS DOC ---
Past Medical History Past Medical History: Cancer, High Cholesterol, Hypertension, Hypothyroid Additional Past Medical Histor: colon ca dx 07/2019 w chemo Past Surgical History: Colectomy, Other Additional Past Surgical Histo: Neck Fusion C4-5; wisdom teeth,colostomy,kidney stents,port Smoking Status: Never Smoker Alcohol Use: None Drug Use: None General Adult EDM: Chief Complaint: DIARRHEA HPI: HPI: Patient is a 59-year-old male, who has a history of colon cancer, relatively recently diagnosed, when he presented apparently with a large bowel obstruction, and underwent a diverting colostomy at [facility], has been getting chemotherapy for about 5 weeks, recently transferred oncology care to this facility, who presents with about 10 days of diarrhea. His oncologist called in an antidiarrhea medication a few days ago, but it has not been helping his symptoms. The patient denies any pain. He called his PCP today, and was told to come to the emergency department. He has had traces of blood in his st ool as well. He denies any fevers or chills, dizziness, lightheadedness, nausea, or vomiting. He did undergo a CT scan of his abdomen this morning, ordered by his oncologist, which has been reviewed. The patient denies any fevers or chills, recent travel or antibiotic use, malaise, nausea, or vomiting. There are no alleviating or exacerbating factors to his symptoms. The patient is uncertain of the name of the chemotherapy medications he is taking. He has a follow-up appointment scheduled with his oncologist tomorrow. Review of Systems: Review of Systems: Constitutional: Denies fever or chills. [] Eyes: Denies change in visual acuity. [] HENT: Denies nasal congestion or sore throat. [] Respiratory: Denies cough or shortness of breath. [] Cardiovascular: Denies chest pain or edema. [] GI: Denies abdominal pain, nausea, vomiting. [] : Denies dysuria. [] Musculoskeletal: Denies back pain or joint pain. [] Integument: Denies rash. [] Neurologic: Denies headache, focal weakness or sensory changes. [] Endocrine: Denies polyuria or polydipsia. [] Lymphatic: Denies swollen glands. [] Psychiatric: Denies depression or anxiety. [] Heart Score: Risk Factors: Risk Factors: DM, Current or recent (<one month) smoker, HTN, HLP, family history of CAD, obesity. Risk Scores: Score 0 - 3: 2.5% MACE over next 6 weeks - Discharge Home Score 4 - 6: 20.3% MACE over next 6 weeks - Admit for Clinical Observation Score 7 - 10: 72.7% MACE over next 6 weeks - Early Invasive Strategies Current Medications: Current Medications Medications (Trade) Dose Ordered Sig/Mara Start Time Stop Time Status Last Admin Dose Admin Sodium Chloride 1,000 ml @ 1,000 mls/hr Q1H 11/26/19 15:21 11/26/19 16:20 Allergies: Allergies: Allergies Coded Allergies Type Severity Reaction Last Updated Verified No Known Drug Allergies 11/21/19 No Physical Exam: PE: PHYSICAL EXAM: CONSTITUTIONAL: Thin HEAD: normocephalic, atraumatic EENT: PERRL, EOMI. Conjunctivae normal color, sclerae non-icteric; moist mucous membranes. NECK: Supple, non-tender; no meningismus. LUNGS: Lungs CTA, breathing even and unlabored. Normal air movement. HEART: Regular rate and rhythm, no murmur CHEST: No deformity; non-tender ABDOMEN: The abdomen is soft, and non-tender, no masses or bruits. There is an ostomy in the left lower abdomen. EXTREM: Normal ROM; no deformity, no calf tenderness. Normal pulses palpable in all extremities. There is no pedal edema. SKIN: No rash; no diaphoresis NEURO: Alert; normal speech and cognition; CN's grossly intact; strength grossly intact without focal deficit. BACK: No CVA TTP. Current Patient Data: Labs: Laboratory Tests Test 11/26/19 15:40 White Blood Count 2.1 x10^3/uL Red Blood Count 3.18 x10^6/uL Hemoglobin 8.4 g/dL Hematocrit 25.0 % Mean Corpuscular Volume 79 fL Mean Corpuscular Hemoglobin 27 pg Mean Corpuscular Hemoglobin Concent 34 g/dL Red Cell Distribution Width 26.0 % Platelet Count 223 x10^3/uL Neutrophils (%) (Auto) 37 % Lymphocytes (%) (Auto) 45 % Monocytes (%) (Auto) 14 % Eosinophils (%) (Auto) 3 % Basophils (%) (Auto) 1 % Neutrophils # (Auto) 0.8 x10^3/uL Lymphocytes # (Auto) 0.9 x10^3/uL Monocytes # (Auto) 0.3 x10^3/uL Eosinophils # (Auto) 0.1 x10^3/uL Basophils # (Auto) 0.0 x10^3/uL Segmented Neutrophils % 30 % Band Neutrophils % 8 % Lymphocytes % 52 % Atypical Lymphocytes % (Manual) % Monocytes % 7 % Eosinophils % 2 % Basophils % 1 % Platelet Estimate Adequate Poikilocytosis Slight Anisocytosis Mod Sodium Level 135 mmol/L Potassium Level 2.6 mmol/L Chloride Level 98 mmol/L Carbon Dioxide Level 26 mmol/L Anion Gap 11 Blood Urea Nitrogen 13 mg/dL Creatinine 1.4 mg/dL Estimated GFR (Cockcroft-Gault) 63.2 BUN/Creatinine Ratio 9 Glucose Level 96 mg/dL Calcium Level 8.7 mg/dL Magnesium Level 1.4 mg/dL Total Bilirubin 0.4 mg/dL Direct Bilirubin 0.1 mg/dL Aspartate Amino Transf (AST/SGOT) 36 U/L Alanine Aminotransferase (ALT/SGPT) 18 U/L Alkaline Phosphatase 141 U/L Lactate Dehydrogenase 264 U/L Total Protein 7.1 g/dL Albumin 3.2 g/dL Albumin/Globulin Ratio 0.8 Lipase 425 U/L Vitamin B12 Level 740 pg/mL Current Medications Medications (Trade) Dose Ordered Sig/Mara Route PRN Reason Start Time Stop Time Status Last Admin Dose Admin Sodium Chloride 1,000 ml @ 1,000 mls/hr Q1H IV 11/26/19 15:21 11/26/19 16:20 DC 11/26/19 15:55 Potassium Chloride/Water 100 ml @ 100 mls/hr Q1H IV 11/26/19 16:30 11/26/19 18:29 11/26/19 16:35 Potassium Chloride (Klor-Con) 40 meq 1X ONCE PO 11/26/19 16:15 11/26/19 16:17 DC 11/26/19 16:35 Magnesium Sulfate 50 ml @ 25 mls/hr 1X ONCE IV 11/26/19 17:00 11/26/19 18:59 EKG: EKG: [] Radiology/Procedures: Radiology/Procedures: PROCEDURE: CT CHEST ABD PELVIS W/CONTRAST EXAM: CT Chest, Abdomen, and Pelvis with IV contrast INDICATION: Staging colon cancer TECHNIQUE: Multi-detector row CT images were acquired from the thoracic inlet through the ischial tuberosities with the use of IV contrast. Sagittal and coronal images were acquired from the transaxial data. All CT scans performed at this facility utilize dose optimization techniques as appropriate to the exam, including the following: Automated exposure control and adjustment of the mA and/or KV according to patient size (this includes techniques or standardized protocols for targeted exams where dose is indication/reason for exam). IV CONTRAST: Administered ORAL CONTRAST: Administered COMPARISON: Chest abdomen pelvis CT with IV contrast 08/14/2019 FINDINGS: CHEST: CARDIOVASCULAR: Right tunneled chest port newly present from a jugular approach, tip in the distal SVC MEDIASTINUM & JANET: No adenopathy or masses. LUNGS: Marginal interval decrease in size of the left lower lobe pulmonary nodule now measuring 6 mm compared with 7 mm previously. Stable peripheral calcification in the left upper lobe with associated pleural parenchymal scarring and stable thin-walled cysts in the lower lobes. No new pulmonary nodules or lung masses. . PLEURAL SPACE: No pleural effusions or pneumothorax. OSSEOUS & SOFT TISSUE: Unremarkable ABDOMEN/PELVIS: LIVER: There has been an interval increase in size of multiple hypodense liver masses most of which show thick soft tissue rinds consistent with metastatic deposits. Their margins are more distinct in the interval however. The largest lesion in the caudate lobe now measures 8.4 x 5.8 cm compared with 8.1 x 5.9 cm, essentially unchanged. Several additional lesions however appear slightly larger in size, including the largest lesion in hepatic segment 7 that previously measured 4.1 x 3.5 cm (image 9 of series 4 of the prior exam) and now measures 5.7 x 4.5 cm (image 15 of series 4 this exam). A 7 mm lesion at the border between hepatic segment 2 and segment 4A is new or better visualized (image 13 of series 4) from the previous exam. BILIARY SYSTEM: Gallbladder is unremarkable. Bile ducts are not dilated. PANCREAS: Unremarkable SPLEEN: Unremarkable ADRENALS: Unremarkable No new retroperitoneal masses are identified. No ascites, fluid collection or free air. No new masses are noted. KIDNEYS & URETERS: Interval placement of a left double-J nephroureteral stent with resolution of previous left hydronephrosis. The left kidney is smaller than the right. A partially exophytic 1.1 cm left renal cyst remains present and requires no additional follow-up. BLADDER: Contains the distal portion of the left double-J nephroureteral stent but is otherwise unremarkable. REPRODUCTIVE ORGANS: Unremarkable GASTROINTESTINAL: Circumferential thickening in the sigmoid colon consistent with patient's known colorectal malignancy is not obscured by diffuse collapse of the left colon status post interval diverting loop colostomy in the left upper quadrant abdomen. The appendix is not well seen but there are no findings of acute appendicitis. MESENTERY/PERITONEUM/RETROPERITONEUM: The soft tissue mass previously associated with left ureteral obstruction has decreased in size to 2.2 x 2.1 cm in maximum axial dimensions (image 49 of axial series 4) compared with 3.7 x 3.1 cm as reported previously. VASCULAR: Normal caliber abdominal aorta with scattered calcifications. The IVC still shows some mass effect from the large metastatic deposits in the hepatic caudate lobe but remains patent. LYMPH NODES: Retroperitoneal lymph nodes are diffusely enlarged have decreased in size, including the aforementioned soft tissue mass previously associated with left ureteral obstruction which represented a cluster of enlarged lymph nodes. For reference, an lymph nodes superficial to the left psoas muscle previously measuring 9 mm (image 49 of axial series 4 and the prior exam) now measures 5 mm on the current study (image 52 of series 4) mildly prominent right external iliac node measures 7 mm and is similar to prior. No necrotic adenopathy is appreciated. OSSEOUS & SOFT TISSUES: Unremarkable IMPRESSION: 1. Overall findings favor a positive treatment response with less conspicuity of the primary colonic mass in the rectosigmoid colon and of the adjacent masslike retroperitoneal adenopathy. Stable to slightly smaller left lower lobe pulmonary nodule. 2. The interval enlargement and increased conspicuity of hepatic metastases could reflect a positive treatment-related response as may be seen with molecular targeted therapy. Attention on follow-up is recommended. 2. Interval resolution of left hydronephrosis status post left double-J nephroureteral stent placement. Course & Med Decision Making: Course & Med Decision Making Pertinent Labs and Imaging studies reviewed. (See chart for details) [] 5:55 PM: The patient's condition remained stable. He has, as of yet, provided a stool specimen. CBC is not significantly different than prior values, and not necessarily unexpected for a patient getting chemotherapy. He has a scheduled follow-up appointment for tomorrow with his oncologist, Dr. Salcedo, who has been paged, but has not yet returned to call. The patient appears well, and I discussed return precautions in detail. He will be given potassium and magnesium supplementation at home. If the patient is unable to provide a stool specimen before his electrolyte supplementation completes, he will have to bring a specimen to his oncologist tomorrow. Davey Disclaimer: Davey Disclaimer: This electronic medical record was generated, in whole or in part, using a voice recognition dictation system. Departure Departure Impression: Primary Impression: Diarrhea Additional Impressions: Hypokalemia Hypomagnesemia Colon cancer Disposition: HOME, SELF-CARE Condition: STABLE Referrals: JARED PHOENIX MD (PCP) Patient Instructions: Colostomy Home Guide, Diarrhea, Hypokalemia, Hypomagnesemia Scripts Magnesium Oxide (MAGOX 400) 400 Mg Tablet 1 TAB PO DAILY for 30 Days, #30 TAB 0 Refills Prov: WILFRID COLON MD 11/26/19 Potassium Chloride (KLOR-CON M20) 20 Meq Tab.er.prt 20 MEQ PO DAILY for 15 Days, #15 TAB.SR Prov: WILFRID COLON MD 11/26/19 WILFRID COLON MD Nov 26, 2019 15:27
[2019-11-26 15:57] LABS: BASO % 1 % (0-3); EOS # 0.1 x10^3/uL (0.0-0.7); EOS % 3 % (0-3); HEMOGLOBIN 8.4 g/dL (13.0-17.5); LYMPH # 0.9 x10^3/uL (1.0-4.8); LYMPH % 45 % (24-48); MEAN CORPUSCULAR HEMOGLOBIN 27 pg (25-35); MEAN CORPUSCULAR HGB CONC 34 g/dL (31-37); MEAN CORPUSCULAR VOLUME 79 fL (79-100); MONO # 0.3 x10^3/uL (0.0-1.1); MONO % 14 % (0-9); NEUT # 0.8 x10^3/uL (1.8-7.7); NEUT % 37 % (31-73); PLATELET COUNT 223 x10^3/uL (140-400); RED BLOOD COUNT 3.18 x10^6/uL (4.30-5.70); WHITE BLOOD COUNT 2.1 x10^3/uL (4.0-11.0)
[2019-11-26 16:09] LABS: ALBUMIN 3.2 g/dL (3.4-5.0); ALBUMIN/GLOBULIN RATIO 0.8 (1.0-1.7); CALCIUM 8.7 mg/dL (8.5-10.1); CREATININE 1.4 mg/dL (0.7-1.3); GFR 63.2; TOTAL BILIRUBIN 0.4 mg/dL (0.2-1.0); TOTAL PROTEIN 7.1 g/dL (6.4-8.2)
[2019-11-26 16:12] LABS: POTASSIUM 2.6 mmol/L (3.5-5.1)
[2019-11-26] MEDS ORDERED: POTASSIUM CHLORIDE 20 MEQ TABLET.ER. PO ONE (16:15)
[2019-11-26 16:27] LABS: % BANDS 8 % (0-9); PLT ESTIMATE ADEQUATE (ADEQUATE)
[2019-11-26] MEDS: POTASSIUM CHLORIDE 20MEQ 100 ML IV SCH ×2 (16:35→17:00)
[2019-11-26 16:36] LABS: % BASOS 1 % (0-3); % EOS 2 % (0-5); % LYMPHS 52 % (24-48); % MONOS 7 % (0-10); % SEGS 30 % (35-66)
[2019-11-26 16:37] LABS: ANISOCYTOSIS MOD; POIKILOCYTOSIS SLIGHT
[2019-11-26 16:58] LABS: DIRECT BILIRUBIN 0.1 mg/dL (0.0-0.2)
[2019-11-26] MEDS ORDERED: MAGNESIUM SULFATE 2GM 50 ML IV ONE (17:00)
[2019-11-26] MEDS ORDERED: POTA20TA4 PO (17:47)
[2019-11-26] MEDS ORDERED: MAGN400T17 PO (17:47)
[2019-11-26] MEDS ORDERED: 0.9 % SOD CHL for STERILE FIELD 10 ML DISP.SYRIN. ONE (18:21)
[2019-11-26 18:39] VITALS: BP 138/90
[2019-11-28 08:11] LABS: FREE PSA/PSA RATIO 31.7 % (.); PSA FREE 0.19 ng/mL; PSA TOTAL 0.6 ng/mL (0.0-4.0)
[2019-11-29 03:07] LABS: METHYLMALONIC ACID 159 nmol/L (0-378)
== END 2019-11-26 19:40 | disposition home or self-care (01) ==
LOC: ER 15:04
DX: R19.7 Diarrhea, unspecified (principal); E87.6 Hypokalemia; E83.42 Hypomagnesemia; E78.00 Pure hypercholesterolemia, unspecified; E03.9 Hypothyroidism, unspecified; I10 Essential (primary) hypertension; Z90.89 Acquired absence of other organs; Z98.890 Other specified postprocedural states; Z85.038 Personal history of other malignant neoplasm of large intestine
CPT/HCPCS: 80053; 82248; 82378; 82607; 83615; 83690; 83735; 83921; 84153; 84154; 84402; 84403; 85007; 85025; 87045; 87493; 96361; 96365; 96368; 99284; J3475; J3480; J7030; 36415

== ENCOUNTER → 2019-11-26 | Outpatient (CLI) | payer OTHER ==
[2019-11-19 11:48] VITALS: BP 120/71
[~2019-11-26] MED LIST changes: +IOHEXOL 240 MG/ML 50ML VIAL. PO ONE; +IOHEXOL 300 MG/ML 100ML VIAL. IV ONE
--- NOTE | 2019-11-26 11:36 | RAD ---
EXAM: CT Chest, Abdomen, and Pelvis with IV contrast INDICATION: Staging colon cancer TECHNIQUE: Multi-detector row CT images were acquired from the thoracic inlet through the ischial tuberosities with the use of IV contrast. Sagittal and coronal images were acquired from the transaxial data. All CT scans performed at this facility utilize dose optimization techniques as appropriate to the exam, including the following: Automated exposure control and adjustment of the mA and/or KV according to patient size (this includes techniques or standardized protocols for targeted exams where dose is indication/reason for exam). IV CONTRAST: Administered ORAL CONTRAST: Administered COMPARISON: Chest abdomen pelvis CT with IV contrast 08/14/2019 FINDINGS: CHEST: CARDIOVASCULAR: Right tunneled chest port newly present from a jugular approach, tip in the distal SVC MEDIASTINUM & JANET: No adenopathy or masses. LUNGS: Marginal interval decrease in size of the left lower lobe pulmonary nodule now measuring 6 mm compared with 7 mm previously. Stable peripheral calcification in the left upper lobe with associated pleural parenchymal scarring and stable thin-walled cysts in the lower lobes. No new pulmonary nodules or lung masses. . PLEURAL SPACE: No pleural effusions or pneumothorax. OSSEOUS & SOFT TISSUE: Unremarkable ABDOMEN/PELVIS: LIVER: There has been an interval increase in size of multiple hypodense liver masses most of which show thick soft tissue rinds consistent with metastatic deposits. Their margins are more distinct in the interval however. The largest lesion in the caudate lobe now measures 8.4 x 5.8 cm compared with 8.1 x 5.9 cm, essentially unchanged. Several additional lesions however appear slightly larger in size, including the largest lesion in hepatic segment 7 that previously measured 4.1 x 3.5 cm (image 9 of series 4 of the prior exam) and now measures 5.7 x 4.5 cm (image 15 of series 4 this exam). A 7 mm lesion at the border between hepatic segment 2 and segment 4A is new or better visualized (image 13 of series 4) from the previous exam. BILIARY SYSTEM: Gallbladder is unremarkable. Bile ducts are not dilated. PANCREAS: Unremarkable SPLEEN: Unremarkable ADRENALS: Unremarkable No new retroperitoneal masses are identified. No ascites, fluid collection or free air. No new masses are noted. KIDNEYS & URETERS: Interval placement of a left double-J nephroureteral stent with resolution of previous left hydronephrosis. The left kidney is smaller than the right. A partially exophytic 1.1 cm left renal cyst remains present and requires no additional follow-up. BLADDER: Contains the distal portion of the left double-J nephroureteral stent but is otherwise unremarkable. REPRODUCTIVE ORGANS: Unremarkable GASTROINTESTINAL: Circumferential thickening in the sigmoid colon consistent with patient's known colorectal malignancy is not obscured by diffuse collapse of the left colon status post interval diverting loop colostomy in the left upper quadrant abdomen. The appendix is not well seen but there are no findings of acute appendicitis. MESENTERY/PERITONEUM/RETROPERITONEUM: The soft tissue mass previously associated with left ureteral obstruction has decreased in size to 2.2 x 2.1 cm in maximum axial dimensions (image 49 of axial series 4) compared with 3.7 x 3.1 cm as reported previously. VASCULAR: Normal caliber abdominal aorta with scattered calcifications. The IVC still shows some mass effect from the large metastatic deposits in the hepatic caudate lobe but remains patent. LYMPH NODES: Retroperitoneal lymph nodes are diffusely enlarged have decreased in size, including the aforementioned soft tissue mass previously associated with left ureteral obstruction which represented a cluster of enlarged lymph nodes. For reference, an lymph nodes superficial to the left psoas muscle previously measuring 9 mm (image 49 of axial series 4 and the prior exam) now measures 5 mm on the current study (image 52 of series 4) mildly prominent right external iliac node measures 7 mm and is similar to prior. No necrotic adenopathy is appreciated. OSSEOUS & SOFT TISSUES: Unremarkable IMPRESSION: 1. Overall findings favor a positive treatment response with less conspicuity of the primary colonic mass in the rectosigmoid colon and of the adjacent masslike retroperitoneal adenopathy. Stable to slightly smaller left lower lobe pulmonary nodule. 2. The interval enlargement and increased conspicuity of hepatic metastases could reflect a positive treatment-related response as may be seen with molecular targeted therapy. Attention on follow-up is recommended. 2. Interval resolution of left hydronephrosis status post left double-J nephroureteral stent placement. Electronically signed by: Jhony Antunez MD (11/26/2019 11:33 AM) [id number]
== END | disposition home or self-care (01) ==
LOC: CT 08:51
PROVIDERS: ATTEND Internal Medicine Hematology & Oncology
DX: C18.9 Malignant neoplasm of colon, unspecified (principal); R91.1 Solitary pulmonary nodule; R59.0 Localized enlarged lymph nodes; I70.0 Atherosclerosis of aorta; N28.1 Cyst of kidney, acquired; K76.89 Other specified diseases of liver; J94.8 Other specified pleural conditions
CPT/HCPCS: 71260; 74177; Q9966; Q9967

== ENCOUNTER 2019-12-02 13:50 | Emergency (ER) | payer SELFPAY ==
[~2019-12-02] VITALS: Ht 167.6 cm; Wt 51.8 kg
[~2019-12-02 13:50] MED LIST changes: +MAGN400T17 PO; +POTA20TA4 PO
[2019-12-02] MEDS ORDERED: POTASSIUM CHLORIDE 20MEQ 100 ML IV ONE (16:15)
[2019-12-02] MEDS ORDERED: IV NORMAL SALINE 1000ML BAG 1,000 ML IV ONE (17:00)
[2019-12-02 17:08] LABS: BASO % 1 % (0-3); EOS % 2 % (0-3); HEMATOCRIT 25.9 % (39.0-53.0); HEMOGLOBIN 8.6 g/dL (13.0-17.5); LYMPH # 1.2 x10^3/uL (1.0-4.8); LYMPH % 51 % (24-48); MEAN CORPUSCULAR HEMOGLOBIN 27 pg (25-35); MEAN CORPUSCULAR HGB CONC 33 g/dL (31-37); MEAN CORPUSCULAR VOLUME 81 fL (79-100); MONO # 0.6 x10^3/uL (0.0-1.1); MONO % 27 % (0-9); NEUT # 0.5 x10^3/uL (1.8-7.7); NEUT % 19 % (31-73); PLATELET COUNT 270 x10^3/uL (140-400); RED BLOOD COUNT 3.21 x10^6/uL (4.30-5.70); RED CELL DISTRIBUTION WIDTH 27.2 % (11.5-14.5); WHITE BLOOD COUNT 2.3 x10^3/uL (4.0-11.0)
[2019-12-02 17:23] LABS: ALBUMIN 3.2 g/dL (3.4-5.0); ALBUMIN/GLOBULIN RATIO 0.8 (1.0-1.7); CALCIUM 8.6 mg/dL (8.5-10.1); CREATININE 1.2 mg/dL (0.7-1.3); GFR 75.5; MAGNESIUM 1.3 mg/dL (1.8-2.4); TOTAL BILIRUBIN 0.5 mg/dL (0.2-1.0); TOTAL PROTEIN 7.1 g/dL (6.4-8.2)
[2019-12-02 17:33] LABS: POTASSIUM 2.7 mmol/L (3.5-5.1)
--- NOTE | 2019-12-02 17:40 | PHYS DOC ---
Past Medical History Past Medical History: Hypertension Additional Past Medical Histor: colon cancer and chemo Past Surgical History: Colectomy, Other Additional Past Surgical Histo: colostomy placement Smoking Status: Never Smoker Alcohol Use: None Drug Use: None General Adult EDM: Chief Complaint: Low potassium HPI: HPI: Patient is a 59 year old male with a history of colon cancer, colostomy bag, in treatment with oncology here. Patient was sent here from the oncology clinic due to low potassium level. Patient has history of diarrhea for several weeks, he has history of recurrent hypo-kalemia. He is on potassium supplement at home. The oncologist called here, recommended IV potassium. Patient denies any chest pain, no cough, no fever. Patient denies any abdominal pain. Review of Systems: Review of Systems: Constitutional: Denies fever or chills. [] Eyes: Denies change in visual acuity. [] HENT: Denies nasal congestion or sore throat. [] Respiratory: Denies cough or shortness of breath. [] Cardiovascular: Denies chest pain or edema. [] GI: Denies abdominal pain, nausea, vomiting, bloody stools or positive diarrhea. [] : Denies dysuria. [] Musculoskeletal: Denies back pain or joint pain. [] Integument: Denies rash. [] Neurologic: Denies headache, focal weakness or sensory changes. [] Endocrine: Denies polyuria or polydipsia. [] Lymphatic: Denies swollen glands. [] Psychiatric: Denies depression or anxiety. [] Heart Score: Risk Factors: Risk Factors: DM, Current or recent (<one month) smoker, HTN, HLP, family history of CAD, obesity. Risk Scores: Score 0 - 3: 2.5% MACE over next 6 weeks - Discharge Home Score 4 - 6: 20.3% MACE over next 6 weeks - Admit for Clinical Observation Score 7 - 10: 72.7% MACE over next 6 weeks - Early Invasive Strategies Current Medications: Current Medications Medications (Trade) Dose Ordered Sig/Mara Start Time Stop Time Status Last Admin Dose Admin Potassium Chloride/Water 100 ml @ 100 mls/hr 1X ONCE 12/02/19 16:15 12/02/19 17:14 DC 12/02/19 17:02 100 MLS/HR Sodium Chloride 1,000 ml @ 1,000 mls/hr 1X ONCE 12/02/19 17:00 12/02/19 17:59 12/02/19 17:02 1,000 MLS/HR Allergies: Allergies: Allergies Coded Allergies Type Severity Reaction Last Updated Verified No Known Drug Allergies 12/02/19 No Physical Exam: PE: Constitutional: Well developed, well nourished, no acute distress, non-toxic appearance. [] HENT: Normocephalic, atraumatic, bilateral external ears normal, oropharynx moist, no oral exudates, nose normal. [] Eyes: PERRLA, EOMI, conjunctiva normal, no discharge. [] Neck: Normal range of motion, no tenderness, supple, no stridor. [] Cardiovascular:Heart rate regular rhythm, no murmur [] Lungs & Thorax: Bilateral breath sounds clear to auscultation [] Abdomen: Bowel sounds normal, soft, no tenderness, no masses, no pulsatile masses. COLOSTOMY BAG IN PLACE WITH LOOSE STOOL IN BAG. Skin: Warm, dry, no erythema, no rash. [] Back: No tenderness, no CVA tenderness. [] Extremities: No tenderness, no cyanosis, no clubbing, ROM intact, no edema. [] Neurologic: Alert and oriented X 3, normal motor function, normal sensory function, no focal deficits noted. [] Psychologic: Affect normal, judgement normal, mood normal. [] Current Patient Data: Labs: Laboratory Tests Test 12/02/19 17:00 White Blood Count 2.3 x10^3/uL (4.0-11.0) L Red Blood Count 3.21 x10^6/uL (4.30-5.70) L Hemoglobin 8.6 g/dL (13.0-17.5) L Hematocrit 25.9 % (39.0-53.0) L Mean Corpuscular Volume 81 fL (79-100) Mean Corpuscular Hemoglobin 27 pg (25-35) Mean Corpuscular Hemoglobin Concent 33 g/dL (31-37) Red Cell Distribution Width 27.2 % (11.5-14.5) H Platelet Count 270 x10^3/uL (140-400) Neutrophils (%) (Auto) 19 % (31-73) L Lymphocytes (%) (Auto) 51 % (24-48) H Monocytes (%) (Auto) 27 % (0-9) H Eosinophils (%) (Auto) 2 % (0-3) Basophils (%) (Auto) 1 % (0-3) Neutrophils # (Auto) 0.5 x10^3/uL (1.8-7.7) L Lymphocytes # (Auto) 1.2 x10^3/uL (1.0-4.8) Monocytes # (Auto) 0.6 x10^3/uL (0.0-1.1) Eosinophils # (Auto) 0.0 x10^3/uL (0.0-0.7) Basophils # (Auto) 0.0 x10^3/uL (0.0-0.2) Platelet Estimate Pending Sodium Level 134 mmol/L (136-145) L Potassium Level 2.7 mmol/L (3.5-5.1) *L Chloride Level 98 mmol/L (98-107) Carbon Dioxide Level 23 mmol/L (21-32) Anion Gap 13 (6-14) Blood Urea Nitrogen 9 mg/dL (8-26) Creatinine 1.2 mg/dL (0.7-1.3) Estimated GFR (Cockcroft-Gault) 75.5 BUN/Creatinine Ratio 8 (6-20) Glucose Level 89 mg/dL (70-99) Calcium Level 8.6 mg/dL (8.5-10.1) Magnesium Level 1.3 mg/dL (1.8-2.4) L Total Bilirubin 0.5 mg/dL (0.2-1.0) Aspartate Amino Transferase (AST) 33 U/L (15-37) Alanine Aminotransferase (ALT) 22 U/L (16-63) Alkaline Phosphatase 114 U/L (46-116) Total Protein 7.1 g/dL (6.4-8.2) Albumin 3.2 g/dL (3.4-5.0) L Albumin/Globulin Ratio 0.8 (1.0-1.7) L Laboratory Tests 12/02/19 17:00 Laboratory Tests 12/02/19 17:00 Vital Signs: Vital Signs Date Time Temp Pulse Resp B/P (MAP) Pulse Ox O2 Delivery O2 Flow Rate FiO2 12/02/19 17:11 97.8 80 16 133/90 (104) 100 Room Air 97.8 EKG: EKG: [] Radiology/Procedures: Radiology/Procedures: Patient is a 59-year-old male who was sent here for IV potassium. Patient was found to have low magnesium level as well. Patient was given 20 mEq potassium IV and 40 mg of potassium p.o. He was given 2 g of magnesium IV also. Patient is already on prescribed potassium pills at home. Patient will need to follow- up with his family doctor for repeat electrolyteS in a couple days. Patient did not need to be admitted to hospital because he is neutropenic. He will be exposed to infectious process while in the hospital. He had no fever. He had no cough. Course & Med Decision Making: Course & Med Decision Making Pertinent Labs and Imaging studies reviewed. (See chart for details) [] Dragon Disclaimer: Dragon Disclaimer: This electronic medical record was generated, in whole or in part, using a voice recognition dictation system. Departure Departure Impression: Primary Impression: Hypokalemia Additional Impression: Hypomagnesemia syndrome Disposition: 01 HOME, SELF-CARE Condition: STABLE Referrals: JARED PHOENIX MD (PCP) PLEASE FOLLOW UP WITH YOUR DOCTOR THIS WEEK FOR REPEAT LAB WORK . Patient Instructions: Hypokalemia, Hypomagnesemia Additional Instructions: Thank you for visiting our Emergency Department. We appreciate you trusting us with your care. If any additional problems come up don't hesitate to return to visit us. Please follow up with your primary care provider so they can plan additional care if needed and know about the problem that you had. If symptoms worsen come back to the Emergency Department. Any concerning symptoms that start such as chest pain, shortness of air, weakness or numbness on one side of the body, running high fevers or any other concerning symptoms return to the ER. NATY SMITH DO December 02, 2019 17:40
[2019-12-02] MEDS ORDERED: POTASSIUM CHLORIDE 10 MEQ TABLET.ER. PO ONE (17:45)
[2019-12-02] MEDS ORDERED: MAGNESIUM SULFATE 2GM 50 ML IV ONE (17:45)
[2019-12-02] MEDS ORDERED: POTASSIUM CHLORIDE 20 MEQ TABLET.ER. PO ONE (18:00)
[2019-12-02 18:03] LABS: BILIRUBIN,URINE NEGATIVE (NEG); CLARITY,URINE CLEAR; COLOR,URINE YELLOW; NITRITE,URINE NEGATIVE (NEG); PROTEIN,URINE >=300 mg/dL (NEG-TRACE); UROBILINOGEN,URINE 0.2 mg/dL (0.2 mg/dL)
[2019-12-02 18:04] LABS: RBC,URINE >40 /HPF (0-2)
[2019-12-02 18:05] LABS: BACTERIA,URINE 0 /HPF (0-FEW); SQUAMOUS EPITHELIAL CELL,UR OCC /LPF
[2019-12-02 18:13] LABS: % BANDS 5 % (0-9); % EOS 3 % (0-5); % SEGS 17 % (35-66); PLT ESTIMATE ADEQUATE (ADEQUATE)
[2019-12-02 18:14] LABS: % LYMPHS 55 % (24-48)
[2019-12-02 18:15] LABS: % MONOS 20 % (0-10); ANISOCYTOSIS MOD; POIKILOCYTOSIS SLIGHT
[2019-12-02 19:00] VITALS: BP 152/75
[2019-12-02] MEDS ORDERED: HEPARIN PF 500 UNIT/5 ML DISP.SYRIN. IVP ONE (19:45)
== END 2019-12-02 20:15 | disposition home or self-care (01) ==
LOC: ER 13:50
DX: E87.6 Hypokalemia (principal); E83.42 Hypomagnesemia; R19.7 Diarrhea, unspecified; I10 Essential (primary) hypertension; Z85.038 Personal history of other malignant neoplasm of large intestine; Z90.89 Acquired absence of other organs; Z98.890 Other specified postprocedural states
CPT/HCPCS: 36415; 80053; 81001; 83735; 85007; 85025; 87086; 96361; 96365; 96366; 96367; 96375; 99284; J1642; J3475; J3480; J7030

== ENCOUNTER → 2019-12-12 | Outpatient (CLI) | payer OTHER ==
[2019-12-05 14:13] VITALS: BP 124/68
[2019-12-13 03:08] LABS: UR PROTEIN 83.6 mg/dL (Not Estab.)
== END ==
LOC: LAB 10:13
PROVIDERS: ATTEND Physician Assistant
DX: C18.7 Malignant neoplasm of sigmoid colon (principal)
CPT/HCPCS: 84156

== ENCOUNTER → 2020-01-07 | Outpatient (CLI) | payer OTHER ==
[2019-12-31 16:09] VITALS: BP 121/61
[~2020-01-07] MED LIST changes: +FERRIC CARBOXYMALTOSE 750 MG in IV NORMAL SALINE 250ML 250 ML IV ONE; +HEPARIN PF 500 UNIT/5 ML DISP.SYRIN. IVP ONE
== END | disposition home or self-care (01) ==
LOC: OPS 09:22
PROVIDERS: ATTEND Internal Medicine Hematology & Oncology
DX: E61.1 Iron deficiency (principal); I12.9 Hypertensive chronic kidney disease with stage 1 through stage 4 chronic kidney disease, or unspecified chronic kidney disease; N18.3 Chronic kidney disease, stage 3 (moderate); E78.5 Hyperlipidemia, unspecified; E03.9 Hypothyroidism, unspecified; E78.00 Pure hypercholesterolemia, unspecified; Z85.030 Personal history of malignant carcinoid tumor of large intestine; Z90.89 Acquired absence of other organs; Z79.899 Other long term (current) drug therapy
CPT/HCPCS: 96365; J1439; J1642; J7050; J7030

== ENCOUNTER → 2020-01-13 | Outpatient (CLI) | payer OTHER ==
[2019-12-31 16:09] VITALS: BP 121/61
[~2020-01-13] MED LIST changes: -FERRIC CARBOXYMALTOSE 750 MG in IV NORMAL SALINE 250ML 250 ML IV ONE; -HEPARIN PF 500 UNIT/5 ML DISP.SYRIN. IVP ONE
[2020-01-13 11:02] LABS: BASO # 0.1 x10^3/uL (0.0-0.2); BASO % 1 % (0-3); EOS # 0.1 x10^3/uL (0.0-0.7); EOS % 4 % (0-3); HEMATOCRIT 29.5 % (39.0-53.0); HEMOGLOBIN 9.8 g/dL (13.0-17.5); LYMPH # 0.9 x10^3/uL (1.0-4.8); LYMPH % 22 % (24-48); MEAN CORPUSCULAR HEMOGLOBIN 30 pg (25-35); MEAN CORPUSCULAR HGB CONC 33 g/dL (31-37); MEAN CORPUSCULAR VOLUME 92 fL (79-100); MONO # 0.6 x10^3/uL (0.0-1.1); MONO % 14 % (0-9); NEUT # 2.4 x10^3/uL (1.8-7.7); NEUT % 59 % (31-73); PLATELET COUNT 195 x10^3/uL (140-400); RED BLOOD COUNT 3.21 x10^6/uL (4.30-5.70); RED CELL DISTRIBUTION WIDTH 24.1 % (11.5-14.5)
[2020-01-13 11:12] LABS: CALCIUM 8.7 mg/dL (8.5-10.1); CREATININE 1.2 mg/dL (0.7-1.3); GFR 75.5; POTASSIUM 3.4 mmol/L (3.5-5.1)
[2020-01-13 11:18] LABS: ALBUMIN 3.6 g/dL (3.4-5.0); DIRECT BILIRUBIN 0.1 mg/dL (0.0-0.2); TOTAL BILIRUBIN 0.4 mg/dL (0.2-1.0); TOTAL PROTEIN 7.9 g/dL (6.4-8.2)
[2020-01-13 12:05] LABS: CREATININE,RANDOM URINE 32.4 mg/dL (Not Establ.)
== END | disposition home or self-care (01) ==
LOC: SPEC 10:04
PROVIDERS: ATTEND Physician Assistant
DX: C18.7 Malignant neoplasm of sigmoid colon (principal)
CPT/HCPCS: 36415; 80048; 80076; 82570; 83615; 83735; 84156; 85025

== ENCOUNTER → 2020-01-28 | Outpatient (CLI) | payer OTHER ==
[2019-12-31 16:09] VITALS: BP 121/61
[~2020-01-28] MED LIST changes: -CETI10TA24 PO; +CETI10TA74 PO
[2020-01-28 08:47] LABS: CALCIUM 8.7 mg/dL (8.5-10.1); CREATININE 1.3 mg/dL (0.7-1.3); GFR 68.8; POTASSIUM 4.1 mmol/L (3.5-5.1)
[2020-01-28 08:53] LABS: ALBUMIN 3.5 g/dL (3.4-5.0); DIRECT BILIRUBIN 0.1 mg/dL (0.0-0.2); TOTAL BILIRUBIN 0.2 mg/dL (0.2-1.0); TOTAL PROTEIN 7.5 g/dL (6.4-8.2)
[2020-01-28 08:57] LABS: BASO % 1 % (0-3); EOS # 0.2 x10^3/uL (0.0-0.7); EOS % 4 % (0-3); HEMATOCRIT 30.3 % (39.0-53.0); HEMOGLOBIN 10.1 g/dL (13.0-17.5); LYMPH % 25 % (24-48); MEAN CORPUSCULAR HEMOGLOBIN 32 pg (25-35); MEAN CORPUSCULAR HGB CONC 33 g/dL (31-37); MEAN CORPUSCULAR VOLUME 95 fL (79-100); MONO # 0.5 x10^3/uL (0.0-1.1); MONO % 12 % (0-9); NEUT # 2.3 x10^3/uL (1.8-7.7); NEUT % 58 % (31-73); PLATELET COUNT 221 x10^3/uL (140-400); RED BLOOD COUNT 3.17 x10^6/uL (4.30-5.70); RED CELL DISTRIBUTION WIDTH 22.9 % (11.5-14.5)
[2020-01-28 09:43] LABS: CREATININE,RANDOM URINE 64.9 mg/dL (Not Establ.)
[2020-01-28 12:18] LABS: BILIRUBIN,URINE NEGATIVE (NEG); CLARITY,URINE CLEAR; COLOR,URINE YELLOW; NITRITE,URINE NEGATIVE (NEG); PH,URINE 5.5 (<5.0-8.0); PROTEIN,URINE 30 mg/dL (NEG-TRACE); UROBILINOGEN,URINE 0.2 mg/dL (0.2 mg/dL)
[2020-01-28 12:25] LABS: BACTERIA,URINE 0 /HPF (0-FEW); HYALINE CASTS, URINE OCCASIONAL /HPF; WBC,URINE >40 /HPF (0-4)
== END | disposition home or self-care (01) ==
LOC: ONCLAB 08:05
PROVIDERS: ATTEND Physician Assistant
DX: C18.7 Malignant neoplasm of sigmoid colon (principal)
CPT/HCPCS: 36415; 80048; 80076; 81001; 82378; 82570; 83615; 83735; 84156; 85025; 87086

== ENCOUNTER → 2020-02-11 | Outpatient (CLI) | payer OTHER ==
[2019-12-31 16:09] VITALS: BP 121/61
[~2020-02-11] MED LIST changes: +CETI10TA24 PO; -CETI10TA74 PO
[2020-02-11 09:31] LABS: BASO # 0.1 x10^3/uL (0.0-0.2); BASO % 1 % (0-3); EOS # 0.1 x10^3/uL (0.0-0.7); EOS % 4 % (0-3); HEMATOCRIT 33.4 % (39.0-53.0); HEMOGLOBIN 11.1 g/dL (13.0-17.5); LYMPH # 1.1 x10^3/uL (1.0-4.8); LYMPH % 32 % (24-48); MEAN CORPUSCULAR HEMOGLOBIN 32 pg (25-35); MEAN CORPUSCULAR HGB CONC 33 g/dL (31-37); MEAN CORPUSCULAR VOLUME 96 fL (79-100); MONO # 0.4 x10^3/uL (0.0-1.1); MONO % 12 % (0-9); NEUT # 1.8 x10^3/uL (1.8-7.7); NEUT % 51 % (31-73); PLATELET COUNT 210 x10^3/uL (140-400); RED BLOOD COUNT 3.47 x10^6/uL (4.30-5.70); RED CELL DISTRIBUTION WIDTH 20.4 % (11.5-14.5); WHITE BLOOD COUNT 3.5 x10^3/uL (4.0-11.0)
[2020-02-11 09:33] LABS: CALCIUM 8.8 mg/dL (8.5-10.1); CREATININE 1.3 mg/dL (0.7-1.3); GFR 68.8; POTASSIUM 4.4 mmol/L (3.5-5.1)
[2020-02-11 09:39] LABS: ALBUMIN 3.6 g/dL (3.4-5.0); DIRECT BILIRUBIN 0.1 mg/dL (0.0-0.2); TOTAL BILIRUBIN 0.3 mg/dL (0.2-1.0); TOTAL PROTEIN 7.9 g/dL (6.4-8.2)
[2020-02-11 10:47] LABS: CREATININE,RANDOM URINE 81.7 mg/dL (Not Establ.)
== END | disposition home or self-care (01) ==
LOC: ONCLAB 08:13
PROVIDERS: ATTEND Physician Assistant
DX: C18.7 Malignant neoplasm of sigmoid colon (principal)
CPT/HCPCS: 36415; 80048; 80076; 82570; 83615; 84156; 85025

== ENCOUNTER → 2020-02-25 | Outpatient (CLI) | payer OTHER ==
[2019-12-31 16:09] VITALS: BP 121/61
[~2020-02-25] MED LIST changes: +IOHEXOL 240 MG/ML 50ML VIAL. ONE; +IOHEXOL 300 MG/ML 100ML VIAL. ONE
[2020-02-25 11:01] LABS: BASO % 1 % (0-3); EOS # 0.1 x10^3/uL (0.0-0.7); EOS % 3 % (0-3); HEMOGLOBIN 11.5 g/dL (13.0-17.5); LYMPH # 1.1 x10^3/uL (1.0-4.8); LYMPH % 30 % (24-48); MEAN CORPUSCULAR HEMOGLOBIN 33 pg (25-35); MEAN CORPUSCULAR HGB CONC 34 g/dL (31-37); MEAN CORPUSCULAR VOLUME 96 fL (79-100); MONO # 0.4 x10^3/uL (0.0-1.1); MONO % 12 % (0-9); NEUT # 2.1 x10^3/uL (1.8-7.7); NEUT % 55 % (31-73); PLATELET COUNT 186 x10^3/uL (140-400); RED BLOOD COUNT 3.54 x10^6/uL (4.30-5.70); WHITE BLOOD COUNT 3.8 x10^3/uL (4.0-11.0)
[2020-02-25 11:02] LABS: CALCIUM 9.1 mg/dL (8.5-10.1); CREATININE 1.2 mg/dL (0.7-1.3); GFR 75.5
[2020-02-25 11:08] LABS: ALBUMIN 3.8 g/dL (3.4-5.0); ALBUMIN/GLOBULIN RATIO 0.9 (1.0-1.7); TOTAL BILIRUBIN 0.2 mg/dL (0.2-1.0); TOTAL PROTEIN 7.9 g/dL (6.4-8.2)
[2020-02-25 11:44] LABS: CREATININE,RANDOM URINE < 13.0 mg/dL (Not Establ.)
== END ==
LOC: ONCLAB 08:23
PROVIDERS: ATTEND Internal Medicine Hematology & Oncology
DX: C18.7 Malignant neoplasm of sigmoid colon (principal)
CPT/HCPCS: 36415; 80053; 82570; 84156; 85025; Q9966; Q9967

== ENCOUNTER → 2020-02-25 | Outpatient (CLI) | payer OTHER ==
[2019-12-31 16:09] VITALS: BP 121/61
[~2020-02-25] MED LIST changes: -CETI10TA24 PO; +CETI10TA74 PO; +CONTRAST GIVEN. MC PRN; -IOHEXOL 240 MG/ML 50ML VIAL. ONE; +IOHEXOL 240 MG/ML 50ML VIAL. PO ONE; +IOHEXOL 300 MG/ML 100ML VIAL. IV ONE; -IOHEXOL 300 MG/ML 100ML VIAL. ONE
--- NOTE | 2020-02-25 18:12 | RAD ---
EXAM: CT Chest, Abdomen, and Pelvis with IV contrast INDICATION: Restage COLON CA TECHNIQUE: Multi-detector row CT images were acquired from the thoracic inlet through the ischial tuberosities with the use of IV contrast. Sagittal and coronal images were acquired from the transaxial data. All CT scans performed at this facility utilize dose optimization techniques as appropriate to the exam, including the following: Automated exposure control and adjustment of the mA and/or KV according to patient size (this includes techniques or standardized protocols for targeted exams where dose is indication/reason for exam). IV CONTRAST: Administered ORAL CONTRAST: Administered COMPARISON: Chest abdomen pelvis CT with IV contrast 11/26/2019 FINDINGS: CHEST: CARDIOVASCULAR: Stable tunneled right chest port, tip in the distal SVC. MEDIASTINUM & JANET: No adenopathy or masses. Largest mediastinal lymph nodes are right lower paratracheal node measuring 5 mm short axis (image 21 axial series 2) and aortopulmonary window lymph node measuring 4 mm (image 20 of axial series 2). LUNGS: Further decrease in the left lower lobe pulmonary nodule, now measuring 3 mm (down from 6 mm reported previously). No new pulmonary nodules identified. Stable calcified nodule in the peripheral left upper lobe abutting the major fissure. PLEURAL SPACE: No pleural effusions or pneumothorax. OSSEOUS & SOFT TISSUE: Unremarkable ABDOMEN/PELVIS: LIVER: Interval decrease in size of several hypovascular hepatic masses compatible with metastatic deposits. For reference, the dominant mass replacing the caudate lobe now measures 5.0 cm AP by 7.3 cm mediolateral (image 21 series 4 this exam) compared with 5.4 x 8.5 cm at the comparable level on the previous exam (image 17 of series 4 on the priors). Likewise, the dominant mass in hepatic segment 7 has decreased in size to 3.4 x 4.3 cm (image 20 of series 4) compared with 4.4 x 5.2 cm at the comparable level on the prior examination (image 15 of series 4 that exam). BILIARY SYSTEM: Gallbladder is unremarkable. Bile ducts are not dilated. PANCREAS: Unremarkable SPLEEN: Unremarkable ADRENALS: Unremarkable KIDNEYS & URETERS: Stable left double-J nephroureteral stent with no recurrent hydronephrosis. Stable tiny cortical cyst in the left kidney measuring 1.1 cm. This requires no additional follow-up. Right kidney is unremarkable. BLADDER: Well-formed distal coil of a double-J nephroureteral stent. Otherwise unremarkable. REPRODUCTIVE ORGANS: Unremarkable GASTROINTESTINAL: The stomach, small bowel, and colon are again notable for surgical changes from left hemicolectomy with diverting colostomy. Enteric contrast opacifies the bowel up to the colostomy. The appendix is normal. MESENTERY/PERITONEUM/RETROPERITONEUM: Interval decrease in size of the soft tissue mass associated with prior ureteral obstruction in the left upper pelvis. On the comparison exam, it was reported at 2.2 x 2.1 cm. It now measures 2.0 x 1.6 cm (axial image 55 of series 4 this exam). In addition, including caudal extent, it measures 2.6 cm (sagittal image 25 of series 9), compared with 3.0 cm previously (image 24 of series 9 the prior exam). VASCULAR: Normal caliber abdominal aorta with scattered calcifications redemonstrated. There is less mass effect on the IVC from the hepatic caudate lobe metastatic deposit. LYMPH NODES: Slight interval decrease in prominent retroperitoneal lymph nodes, for example left common femoral node previously 9 mm and mildly hypervascular (image 67 of series 4 on the prior exam) is lower in density and marginally smaller at 8 mm short axis diameter (image 73 of series 4 this exam). No bulky adenopathy. No necrotic adenopathy clearly demonstrated. OSSEOUS & SOFT TISSUES: Unremarkable IMPRESSION: Positive treatment response with decrease in size of several hepatic metastases and decrease in size of the left lower lobe pulmonary nodule, from 6 to 3 mm. No evidence of disease progression. Electronically signed by: Jhony Antunez MD (02/25/2020 6:09 PM) [id number]
== END | disposition home or self-care (01) ==
LOC: CT 08:14
PROVIDERS: ATTEND Physician Assistant
DX: C18.7 Malignant neoplasm of sigmoid colon (principal); R91.1 Solitary pulmonary nodule; R16.0 Hepatomegaly, not elsewhere classified; N28.1 Cyst of kidney, acquired; I70.0 Atherosclerosis of aorta; Z46.6 Encounter for fitting and adjustment of urinary device; Z90.49 Acquired absence of other specified parts of digestive tract; Z93.3 Colostomy status
CPT/HCPCS: 71260; 74177; Q9966; Q9967

== ENCOUNTER → 2020-03-10 | Outpatient (CLI) | payer OTHER ==
[2019-12-31 16:09] VITALS: BP 121/61
[~2020-03-10] MED LIST changes: -CONTRAST GIVEN. MC PRN; -IOHEXOL 240 MG/ML 50ML VIAL. PO ONE; -IOHEXOL 300 MG/ML 100ML VIAL. IV ONE
[2020-03-10 10:09] LABS: BASO % 1 % (0-3); EOS # 0.1 x10^3/uL (0.0-0.7); EOS % 3 % (0-3); HEMATOCRIT 33.2 % (39.0-53.0); HEMOGLOBIN 11.3 g/dL (13.0-17.5); LYMPH # 1.1 x10^3/uL (1.0-4.8); LYMPH % 28 % (24-48); MEAN CORPUSCULAR HEMOGLOBIN 33 pg (25-35); MEAN CORPUSCULAR HGB CONC 34 g/dL (31-37); MEAN CORPUSCULAR VOLUME 96 fL (79-100); MONO # 0.5 x10^3/uL (0.0-1.1); MONO % 14 % (0-9); NEUT % 54 % (31-73); PLATELET COUNT 201 x10^3/uL (140-400); RED BLOOD COUNT 3.48 x10^6/uL (4.30-5.70); RED CELL DISTRIBUTION WIDTH 19.4 % (11.5-14.5); WHITE BLOOD COUNT 3.8 x10^3/uL (4.0-11.0)
[2020-03-10 10:15] LABS: CALCIUM 9.2 mg/dL (8.5-10.1); CREATININE 1.2 mg/dL (0.7-1.3); GFR 75.5; POTASSIUM 3.7 mmol/L (3.5-5.1)
[2020-03-10 10:21] LABS: ALBUMIN 3.7 g/dL (3.4-5.0); ALBUMIN/GLOBULIN RATIO 0.9 (1.0-1.7); TOTAL BILIRUBIN 0.2 mg/dL (0.2-1.0); TOTAL PROTEIN 7.8 g/dL (6.4-8.2)
[2020-03-10 11:17] LABS: CREATININE,RANDOM URINE 59.7 mg/dL (Not Establ.)
== END | disposition home or self-care (01) ==
LOC: ONCLAB 09:45
PROVIDERS: ATTEND Internal Medicine Hematology & Oncology
DX: C18.7 Malignant neoplasm of sigmoid colon (principal)
CPT/HCPCS: 36415; 80053; 82570; 84156; 85025; 87086

== ENCOUNTER → 2020-03-24 | Outpatient (CLI) | payer OTHER ==
[2019-12-31 16:09] VITALS: BP 121/61
[~2020-03-24] MED LIST changes: +CETI10TA24 PO; -CETI10TA74 PO
[2020-03-24 09:44] LABS: BASO % 1 % (0-3); EOS # 0.1 x10^3/uL (0.0-0.7); EOS % 3 % (0-3); HEMATOCRIT 34.4 % (39.0-53.0); HEMOGLOBIN 11.6 g/dL (13.0-17.5); LYMPH # 1.2 x10^3/uL (1.0-4.8); LYMPH % 27 % (24-48); MEAN CORPUSCULAR HEMOGLOBIN 32 pg (25-35); MEAN CORPUSCULAR HGB CONC 34 g/dL (31-37); MEAN CORPUSCULAR VOLUME 95 fL (79-100); MONO # 0.5 x10^3/uL (0.0-1.1); MONO % 12 % (0-9); NEUT # 2.6 x10^3/uL (1.8-7.7); NEUT % 57 % (31-73); PLATELET COUNT 158 x10^3/uL (140-400); RED BLOOD COUNT 3.61 x10^6/uL (4.30-5.70); RED CELL DISTRIBUTION WIDTH 18.5 % (11.5-14.5); WHITE BLOOD COUNT 4.5 x10^3/uL (4.0-11.0)
[2020-03-24 10:00] LABS: CALCIUM 9.1 mg/dL (8.5-10.1); CREATININE 1.4 mg/dL (0.7-1.3); GFR 63.2; POTASSIUM 3.6 mmol/L (3.5-5.1)
[2020-03-24 10:04] LABS: ALBUMIN 3.7 g/dL (3.4-5.0); ALBUMIN/GLOBULIN RATIO 0.8 (1.0-1.7); TOTAL BILIRUBIN 0.2 mg/dL (0.2-1.0); TOTAL PROTEIN 8.1 g/dL (6.4-8.2)
[2020-03-24 22:08] LABS: CREAT RD UR 129.8 mg/dL (Not Estab.); MICROALB RD UR 231.7 ug/mL (Not Estab.)
== END ==
LOC: ONCLAB 09:15
PROVIDERS: ATTEND Internal Medicine Hematology & Oncology
DX: C18.7 Malignant neoplasm of sigmoid colon (principal)
CPT/HCPCS: 36415; 80053; 82043; 82378; 82570; 85025

== ENCOUNTER → 2020-04-07 | Outpatient (CLI) | payer OTHER ==
[2019-12-31 16:09] VITALS: BP 121/61
[~2020-04-07] MED LIST changes: -CETI10TA24 PO; +CETI10TA74 PO
[2020-04-07 09:46] LABS: BASO % 1 % (0-3); EOS # 0.2 x10^3/uL (0.0-0.7); EOS % 4 % (0-3); HEMATOCRIT 35.5 % (39.0-53.0); LYMPH % 24 % (24-48); MEAN CORPUSCULAR HEMOGLOBIN 32 pg (25-35); MEAN CORPUSCULAR HGB CONC 34 g/dL (31-37); MEAN CORPUSCULAR VOLUME 95 fL (79-100); MONO # 0.4 x10^3/uL (0.0-1.1); MONO % 10 % (0-9); NEUT # 2.5 x10^3/uL (1.8-7.7); NEUT % 61 % (31-73); PLATELET COUNT 224 x10^3/uL (140-400); RED BLOOD COUNT 3.73 x10^6/uL (4.30-5.70); RED CELL DISTRIBUTION WIDTH 18.7 % (11.5-14.5); WHITE BLOOD COUNT 4.2 x10^3/uL (4.0-11.0)
[2020-04-07 10:03] LABS: CALCIUM 9.5 mg/dL (8.5-10.1); CREATININE 1.4 mg/dL (0.7-1.3); GFR 63.2; POTASSIUM 3.6 mmol/L (3.5-5.1)
[2020-04-07 10:08] LABS: ALBUMIN/GLOBULIN RATIO 0.8 (1.0-1.7); TOTAL BILIRUBIN 0.4 mg/dL (0.2-1.0); TOTAL PROTEIN 8.8 g/dL (6.4-8.2)
[2020-04-07 10:43] LABS: CREATININE,RANDOM URINE 105.1 mg/dL (Not Establ.)
== END | disposition home or self-care (01) ==
LOC: ONCLAB 09:14
PROVIDERS: ATTEND Physician Assistant
DX: C18.7 Malignant neoplasm of sigmoid colon (principal)
CPT/HCPCS: 36415; 80053; 82570; 83615; 84156; 85025

== ENCOUNTER → 2020-04-26 | Outpatient (CLI) | payer OTHER ==
[2019-12-31 16:09] VITALS: BP 121/61
[2020-04-26 10:03] LABS: BASO # 0.1 x10^3/uL (0.0-0.2); BASO % 1 % (0-3); EOS # 0.2 x10^3/uL (0.0-0.7); EOS % 4 % (0-3); HEMATOCRIT 35.4 % (39.0-53.0); HEMOGLOBIN 11.9 g/dL (13.0-17.5); LYMPH # 1.4 x10^3/uL (1.0-4.8); LYMPH % 24 % (24-48); MEAN CORPUSCULAR HEMOGLOBIN 32 pg (25-35); MEAN CORPUSCULAR HGB CONC 34 g/dL (31-37); MEAN CORPUSCULAR VOLUME 95 fL (79-100); MONO # 0.5 x10^3/uL (0.0-1.1); MONO % 9 % (0-9); NEUT # 3.5 x10^3/uL (1.8-7.7); NEUT % 62 % (31-73); PLATELET COUNT 240 x10^3/uL (140-400); RED BLOOD COUNT 3.73 x10^6/uL (4.30-5.70); RED CELL DISTRIBUTION WIDTH 17.2 % (11.5-14.5); WHITE BLOOD COUNT 5.7 x10^3/uL (4.0-11.0)
[2020-04-26 10:11] LABS: CREATININE,RANDOM URINE 150.8 mg/dL (Not Establ.)
[2020-04-26 10:13] LABS: CALCIUM 9.5 mg/dL (8.5-10.1); CREATININE 1.3 mg/dL (0.7-1.3); GFR 68.8; POTASSIUM 3.6 mmol/L (3.5-5.1)
[2020-04-26 10:18] LABS: ALBUMIN 3.9 g/dL (3.4-5.0); ALBUMIN/GLOBULIN RATIO 0.8 (1.0-1.7); TOTAL BILIRUBIN 0.5 mg/dL (0.2-1.0); TOTAL PROTEIN 8.6 g/dL (6.4-8.2)
== END | disposition home or self-care (01) ==
LOC: ONCLAB 09:08
PROVIDERS: ATTEND Internal Medicine Hematology & Oncology
DX: C18.7 Malignant neoplasm of sigmoid colon (principal)
CPT/HCPCS: 36415; 80053; 82378; 82570; 84156; 85025

== ENCOUNTER → 2020-05-03 | Outpatient (CLI) | payer OTHER ==
[2019-12-31 16:09] VITALS: BP 121/61
[~2020-05-03] MED LIST changes: +CONTRAST GIVEN. MC PRN; +HEPARIN PF 500 UNIT/5 ML DISP.SYRIN. IVP ONE; +IOHEXOL 240 MG/ML 50ML VIAL. PO ONE; +IOHEXOL 300 MG/ML 100ML VIAL. IV ONE
--- NOTE | 2020-05-03 14:05 | RAD ---
EXAM: CT CHEST, ABDOMEN, AND PELVIS WITH CONTRAST INDICATION: Colon cancer COMPARISON: CT chest abdomen and pelvis 02/25/2020 TECHNIQUE: Helical CT imaging performed of the chest, abdomen and pelvis after administration of 75 mL Omnipaque 300 intravenous contrast. Sagittal and coronal reformats were obtained. One or more of the following individualized dose reduction techniques were utilized for this examination: 1. Automated exposure control 2. Adjustment of the mA and/or kV according to patient size 3. Use of iterative reconstruction technique. FINDINGS: CHEST: Thyroid gland and thoracic inlet: Thyroid gland is normal. No supra clavicular lymphadenopathy. Heart and great vessels: Heart is normal in size. No pericardial effusion. The thoracic aorta is normal in caliber. Mediastinum and farideh: No mediastinal or hilar lymphadenopathy. Lungs and pleura: Unchanged 3 mm nodule in the left lower lobe (image 4, series 2). There is a new 3 mm pulmonary nodule in the left apex (image 19, series 2) and a 3 mm pulmonary nodule in the right middle lobe (image 46, series 2). There are a few scattered cysts in the lungs. No pleural effusion. Chest wall and axillae: There is a right IJ port with tip in the lower superior vena cava. No axillary lymphadenopathy. Bones: No acute osseous abnormality in the chest. ABDOMEN AND PELVIS: Liver: Multiple large hepatic masses are redemonstrated. The dominant mass replacing the caudate is unchanged measuring 7.3 x 5.1 cm (image 18, series 4). The mass in segment 8 is slightly larger, now 3.7 x 2.7, previously 3.1 x 2.3 (image 15, series 4). Several masses in segment 4A are larger including a 1.8 cm mass, previously 0.7 cm (image 12, series 4). No definite new masses. No definite new mass. Hepatic, portal, superior mesenteric, and splenic veins are patent. Gallbladder/Biliary Tree: Normal. Pancreas: Normal. Spleen: Normal. Adrenal Glands: Normal. Kidneys/Ureters/Bladder: A left nephroureteral stent is unchanged. There is unchanged soft tissue extending along the left ureter. No left hydronephrosis. A 1.2 cm hypodense lesion in the mid left kidney is unchanged. The right kidney, right ureter, and bladder are normal. Reproductive Organs: Prostate gland is unchanged. Stomach, small bowel, and colon: Stomach and small bowel are normal. There are surgical changes of the colon with a colostomy in the left lower quadrant. Vasculature: Abdominal aorta is normal in caliber. Mild calcified atherosclerosis Lymph Nodes: No lymphadenopathy. Peritoneum and retroperitoneum: Unchanged left lower quadrant mass measuring approximately 1.8 x 1.4 cm (image 47, series 4). Bones: No acute osseous abnormality. IMPRESSION: Mixed response with several hepatic masses slightly increased in size and others unchanged. Unchanged left lower quadrant retroperitoneal mass. There are several new 3 mm pulmonary nodules, which could be metastatic disease but are nonspecific. Recommend attention on follow-up. Electronically signed by: Rebekah Vázquez MD (05/03/2020 2:02 PM) [id number]
== END | disposition home or self-care (01) ==
LOC: CT 09:01
PROVIDERS: ATTEND Internal Medicine Hematology & Oncology
DX: C18.7 Malignant neoplasm of sigmoid colon (principal); R91.8 Other nonspecific abnormal finding of lung field; J98.4 Other disorders of lung
CPT/HCPCS: 71260; 74177; J1642; Q9966; Q9967

== ENCOUNTER → 2020-05-10 | Outpatient (CLI) | payer OTHER ==
[2019-12-31 16:09] VITALS: BP 121/61
[~2020-05-10] MED LIST changes: +AMLO-187 PO; -AMLO10TA8 PO; -CONTRAST GIVEN. MC PRN; -HEPARIN PF 500 UNIT/5 ML DISP.SYRIN. IVP ONE; -IOHEXOL 240 MG/ML 50ML VIAL. PO ONE; -IOHEXOL 300 MG/ML 100ML VIAL. IV ONE
[2020-05-10 10:14] LABS: BASO % 1 % (0-3); EOS # 0.2 x10^3/uL (0.0-0.7); EOS % 4 % (0-3); LYMPH # 1.4 x10^3/uL (1.0-4.8); LYMPH % 24 % (24-48); MEAN CORPUSCULAR HEMOGLOBIN 32 pg (25-35); MEAN CORPUSCULAR HGB CONC 33 g/dL (31-37); MEAN CORPUSCULAR VOLUME 95 fL (79-100); MONO # 0.6 x10^3/uL (0.0-1.1); MONO % 10 % (0-9); NEUT # 3.4 x10^3/uL (1.8-7.7); NEUT % 61 % (31-73); PLATELET COUNT 250 x10^3/uL (140-400); RED BLOOD COUNT 3.47 x10^6/uL (4.30-5.70); RED CELL DISTRIBUTION WIDTH 16.8 % (11.5-14.5); WHITE BLOOD COUNT 5.6 x10^3/uL (4.0-11.0)
[2020-05-10 10:28] LABS: CALCIUM 9.4 mg/dL (8.5-10.1); CREATININE 1.4 mg/dL (0.7-1.3); GFR 63.2; POTASSIUM 3.5 mmol/L (3.5-5.1)
[2020-05-10 10:34] LABS: ALBUMIN/GLOBULIN RATIO 0.9 (1.0-1.7); TOTAL BILIRUBIN 0.5 mg/dL (0.2-1.0); TOTAL PROTEIN 8.5 g/dL (6.4-8.2)
[2020-05-10 11:04] LABS: CREATININE,RANDOM URINE 112.6 mg/dL (Not Establ.)
== END ==
LOC: ONCLAB 10:00
PROVIDERS: ATTEND Internal Medicine Hematology & Oncology
DX: C18.7 Malignant neoplasm of sigmoid colon (principal)
CPT/HCPCS: 36415; 80053; 82378; 82570; 84156; 85025

== ENCOUNTER 2020-05-13 08:54 | Emergency (ER) | payer OTHER ==
[~2020-05-13] VITALS: Ht 167.6 cm; Wt 58.0 kg
[2020-05-13] MEDS ORDERED: ONDANSETRON PF 4 MG/2 ML VIAL. IVP ONE (09:45)
[2020-05-13] MEDS ORDERED: MORPHINE SULFATE 4 MG/ML VIAL. IV ONE (09:45)
[2020-05-13] MEDS ORDERED: IV NORMAL SALINE 1000ML BAG 1,000 ML IV ONE (09:45)
--- NOTE | 2020-05-13 09:47 | PHYS DOC ---
Past Medical History Past Medical History: Hypertension, Other Additional Past Medical Histor: COLON CX W/ CHEMO AND KIDNEY STENTS Past Surgical History: Colectomy, Other Additional Past Surgical Histo: colostomy placement, SPINAL SX Smoking Status: Never Smoker Alcohol Use: None Drug Use: None General Adult EDM: Chief Complaint: LOWER BACK PAIN OR INJURY HPI: HPI: Patient is a 59 year old male with history of colon cancer, presented to ER due to bilateral flank pain since yesterday. Patient denies any injury. Patient denies any nausea vomiting, no fever, no cough. Patient is currently on chemotherapy for his colon cancer. Patient also has history of stent in his kidney. Review of Systems: Review of Systems: Constitutional: Denies fever or chills. [] Eyes: Denies change in visual acuity. [] HENT: Denies nasal congestion or sore throat. [] Respiratory: Denies cough or shortness of breath. [] Cardiovascular: Denies chest pain or edema. [] GI: Denies abdominal pain, nausea, vomiting, bloody stools or diarrhea. [] : Denies dysuria. [] Musculoskeletal: Positive for bilateral flank pain. Integument: Denies rash. [] Neurologic: Denies headache, focal weakness or sensory changes. [] Endocrine: Denies polyuria or polydipsia. [] Lymphatic: Denies swollen glands. [] Psychiatric: Denies depression or anxiety. [] Heart Score: Risk Factors: Risk Factors: DM, Current or recent (<one month) smoker, HTN, HLP, family history of CAD, obesity. Risk Scores: Score 0 - 3: 2.5% MACE over next 6 weeks - Discharge Home Score 4 - 6: 20.3% MACE over next 6 weeks - Admit for Clinical Observation Score 7 - 10: 72.7% MACE over next 6 weeks - Early Invasive Strategies Current Medications: Current Medications Medications (Trade) Dose Ordered Sig/Mara Start Time Stop Time Status Last Admin Dose Admin Morphine Sulfate (Morphine Sulfate) 4 mg 1X ONCE 05/13/20 09:45 05/13/20 09:46 Ondansetron HCl (Zofran) 4 mg 1X ONCE 05/13/20 09:45 05/13/20 09:46 Sodium Chloride 1,000 ml @ 1,000 mls/hr 1X ONCE 05/13/20 09:45 05/13/20 10:44 Allergies: Allergies: Allergies Coded Allergies Type Severity Reaction Last Updated Verified No Known Drug Allergies 01/07/20 No Physical Exam: PE: Constitutional: Well developed, well nourished, no acute distress, non-toxic appearance. [] HENT: Normocephalic, atraumatic, bilateral external ears normal, oropharynx moist, no oral exudates, nose normal. [] Eyes: PERRLA, EOMI, conjunctiva normal, no discharge. [] Neck: Normal range of motion, no tenderness, supple, no stridor. [] Cardiovascular:Heart rate regular rhythm, no murmur [] Lungs & Thorax: Bilateral breath sounds clear to auscultation [] Abdomen: Bowel sounds normal, soft, no tenderness, no masses, no pulsatile masses. [] Skin: Warm, dry, no erythema, no rash. [] Back: No tenderness, bilateral CVA tenderness to palpation. Extremities: No tenderness, no cyanosis, no clubbing, ROM intact, no edema. [] Neurologic: Alert and oriented X 3, normal motor function, normal sensory function, no focal deficits noted. [] Psychologic: Affect normal, judgement normal, mood normal. [] Current Patient Data: Labs: Laboratory Tests Test 05/13/20 09:30 05/13/20 10:00 Urine Collection Type Unknown Urine Color Yellow Urine Clarity Clear Urine pH 7.5 Urine Specific [place] 1.010 Urine Protein 30 mg/dL Urine Glucose (UA) Negative mg/dL Urine Ketones (Stick) Negative mg/dL Urine Blood Large Urine Nitrite Negative Urine Bilirubin Negative Urine Urobilinogen Dipstick 0.2 mg/dL Urine Leukocyte Esterase Small Urine RBC >40 /HPF Urine WBC 1-4 /HPF Urine Bacteria 0 /HPF White Blood Count 7.8 x10^3/uL Red Blood Count 3.67 x10^6/uL Hemoglobin 11.5 g/dL Hematocrit 34.6 % Mean Corpuscular Volume 94 fL Mean Corpuscular Hemoglobin 31 pg Mean Corpuscular Hemoglobin Concent 33 g/dL Red Cell Distribution Width 16.9 % Platelet Count 233 x10^3/uL Neutrophils (%) (Auto) 92 % Lymphocytes (%) (Auto) 5 % Monocytes (%) (Auto) 2 % Eosinophils (%) (Auto) 0 % Basophils (%) (Auto) 0 % Neutrophils # (Auto) 7.2 x10^3/uL Lymphocytes # (Auto) 0.4 x10^3/uL Monocytes # (Auto) 0.2 x10^3/uL Eosinophils # (Auto) 0.0 x10^3/uL Basophils # (Auto) 0.0 x10^3/uL Segmented Neutrophils % 84 % Band Neutrophils % 5 % Lymphocytes % 8 % Monocytes % 3 % Platelet Estimate Adequate Sodium Level 137 mmol/L Potassium Level 3.2 mmol/L Chloride Level 97 mmol/L Carbon Dioxide Level 26 mmol/L Anion Gap 14 Blood Urea Nitrogen 23 mg/dL Creatinine 1.5 mg/dL Estimated GFR (Cockcroft-Gault) 58.4 BUN/Creatinine Ratio 15 Glucose Level 130 mg/dL Calcium Level 9.7 mg/dL Magnesium Level 2.2 mg/dL Total Bilirubin 0.7 mg/dL Aspartate Amino Transf (AST/SGOT) 66 U/L Alanine Aminotransferase (ALT/SGPT) 61 U/L Alkaline Phosphatase 214 U/L Total Protein 8.9 g/dL Albumin 4.1 g/dL Albumin/Globulin Ratio 0.9 Current Medications Medications (Trade) Dose Ordered Sig/Mara Route PRN Reason Start Time Stop Time Status Last Admin Dose Admin Ondansetron HCl (Zofran) 4 mg 1X ONCE IVP 05/13/20 09:45 05/13/20 09:46 DC 05/13/20 10:15 Morphine Sulfate (Morphine Sulfate) 4 mg 1X ONCE IV 05/13/20 09:45 05/13/20 09:46 DC 05/13/20 10:16 Sodium Chloride 1,000 ml @ 1,000 mls/hr 1X ONCE IV 05/13/20 09:45 05/13/20 10:44 DC 05/13/20 10:15 Ketorolac Tromethamine (Toradol 30mg Vial) 30 mg 1X ONCE IVP 05/13/20 10:45 05/13/20 10:46 DC 05/13/20 10:46 Ceftriaxone Sodium (Rocephin) 1 gm 1X ONCE IVP 05/13/20 12:00 05/13/20 12:01 DC 05/13/20 12:13 Potassium Chloride (Klor-Con) 30 meq 1X ONCE PO 05/13/20 12:30 05/13/20 12:31 DC 05/13/20 12:14 Vital Signs: Vital Signs Date Time Temp Pulse Resp B/P (MAP) Pulse Ox O2 Delivery O2 Flow Rate FiO2 05/13/20 09:10 97.9 92 18 160/92 (114) 100 97.9 EKG: EKG: [] Radiology/Procedures: Radiology/Procedures: [][facility] [address] [place] [address] IMAGING REPORT Signed PATIENT: BABAR FRAZIER ACCOUNT: [id number] : 1960 LOCATION: ER AGE: 59 SEX: M EXAM STATUS: REG ER ORD. PHYSICIAN: NATY SMITH DO REASON: flank pain PROCEDURE: CT ABDOMEN PELVIS WO CONTRAST EXAM: CT Abdomen and Pelvis without IV contrast INDICATION: Reason: flank pain / Spl. Instructions: / History: TECHNIQUE: Multi-detector row CT images were acquired from the lung bases through the abdomen and pelvis without the use of IV contrast. Sagittal and coronal images were acquired from the transaxial data. All CT scans performed at this facility utilize dose optimization techniques as appropriate to the exam, including the following: Automated exposure control and adjustment of the mA and/or KV according to patient size (this includes techniques or standardized protocols for targeted exams where dose is indication/reason for exam). ORAL CONTRAST: None COMPARISON: 05/03/[address] with oral and IV contrast FINDINGS: The absence of IV contrast limits evaluation of soft tissue pathology. LOWER CHEST: No acute findings. LIVER: Multiple heterogeneously hypodense liver lesions compatible with metastases are redemonstrated, better evaluated on contrast imaging on the prior examination of 10 days ago. BILIARY SYSTEM: Gallbladder is unremarkable. Bile ducts are not dilated. PANCREAS: Unremarkable SPLEEN: Unremarkable ADRENALS: Unremarkable KIDNEYS & URETERS: Stable left double-J nephroureteral stent with no interval hydronephrosis. Right kidney shows a subtle punctate density at the inferior pole that could represent artifact (image 83 of axial series 2) or developing calcification. Stable hypodensity in the left renal cortex measuring 1.2 cm, compatible with a cyst. This needs no additional imaging follow-up. No right hydronephrosis or perirenal stranding. No right hydroureter or ureteral stones identified. BLADDER: Unremarkable REPRODUCTIVE ORGANS: Unremarkable GASTROINTESTINAL: Diverting colostomy in the midabdomen is redemonstrated. No findings of bowel obstruction or perforation. The appendix is normal. MESENTERY/PERITONEUM/RETROPERITONEUM: Marginal interval increase in bulk in retroperitoneal periureteral soft tissue as assessed at the level of a tumoral calcification evident on image 120 of axial series 2 versus image 52 of axial series 4. In absolute measurements, the maximum transverse diameter now is 2.1 cm compared with 1.9 cm on the prior study. Maximum AP diameter now measures 1.9 cm compared with 1.6 cm previously. VASCULAR: Unremarkable LYMPH NODES: No adenopathy OSSEOUS & SOFT TISSUES: Unremarkable IMPRESSION: Marginal increase in left lower quadrant retroperitoneal soft tissue mass abutting the left ureter with stable positioning and appearance of a left double-J nephroureteral stent. No interval hydronephrosis. No other findings to explain flank pain identified on noncontrast abdomen and pelvis CT. Electronically signed by: Erik Antunez MD (05/13/2020 11:34 AM) [id number] DICTATED and SIGNED BY: ERIK ANTUNEZ MD DATE: 05/13/20 1134 Course & Med Decision Making: Course & Med Decision Making Pertinent Labs and Imaging studies reviewed. (See chart for details) Patient is a 59-year-old male who was evaluated in the ER due to bilateral flank pain, patient has history of colon cancer, currently is under chemo treatment at this time. Patient was found to have UTI, CT scan of her abdomen pelvic did not show any acute problem. Patient was given medication in the ER, he feel much better. Patient will be discharged home, he recommended follow-up with her family doctor. Patient is amenable to plan of care. Dragon Disclaimer: Dragon Disclaimer: This electronic medical record was generated, in whole or in part, using a voice recognition dictation system. Departure Departure Impression: Primary Impression: Flank pain Additional Impression: UTI (urinary tract infection) Disposition: 01 DC HOME SELF CARE/HOMELESS Condition: IMPROVED Referrals: JARED PHOENIX MD (PCP) PLEASE FOLLOW UP WITH YOUR DOCTOR NEXT WEEK Patient Instructions: Flank Pain, Urinary Tract Infection Additional Instructions: Thank you for visiting our Emergency Department. We appreciate you trusting us with your care. If any additional problems come up don't hesitate to return to visit us. Please follow up with your primary care provider so they can plan additional care if needed and know about the problem that you had. If symptoms worsen come back to the Emergency Department. Any concerning symptoms that start such as chest pain, shortness of air, weakness or numbness on one side of the body, running high fevers or any other concerning symptoms return to the ER. Scripts Ciprofloxacin Hcl (CIPRO) 500 Mg Tablet 1 TAB PO BID for 10 Days, #20 TAB 0 Refills Prov: NATY SMITH DO 05/13/20 NATY SMITH DO May 13, 2020 09:47
[2020-05-13 10:17] LABS: BASO % 0 % (0-3); EOS % 0 % (0-3); HEMATOCRIT 34.6 % (39.0-53.0); HEMOGLOBIN 11.5 g/dL (13.0-17.5); LYMPH # 0.4 x10^3/uL (1.0-4.8); LYMPH % 5 % (24-48); MEAN CORPUSCULAR HEMOGLOBIN 31 pg (25-35); MEAN CORPUSCULAR HGB CONC 33 g/dL (31-37); MEAN CORPUSCULAR VOLUME 94 fL (79-100); MONO # 0.2 x10^3/uL (0.0-1.1); MONO % 2 % (0-9); NEUT # 7.2 x10^3/uL (1.8-7.7); NEUT % 92 % (31-73); PLATELET COUNT 233 x10^3/uL (140-400); RED BLOOD COUNT 3.67 x10^6/uL (4.30-5.70); RED CELL DISTRIBUTION WIDTH 16.9 % (11.5-14.5); WHITE BLOOD COUNT 7.8 x10^3/uL (4.0-11.0)
[2020-05-13 10:20] LABS: CALCIUM 9.7 mg/dL (8.5-10.1); CREATININE 1.5 mg/dL (0.7-1.3); GFR 58.4; POTASSIUM 3.2 mmol/L (3.5-5.1)
[2020-05-13 10:24] LABS: BILIRUBIN,URINE NEGATIVE (NEG); CLARITY,URINE CLEAR; COLOR,URINE YELLOW; NITRITE,URINE NEGATIVE (NEG); PH,URINE 7.5 (<5.0-8.0); PROTEIN,URINE 30 mg/dL (NEG-TRACE); RBC,URINE >40 /HPF (0-2); UROBILINOGEN,URINE 0.2 mg/dL (0.2 mg/dL)
[2020-05-13 10:25] LABS: BACTERIA,URINE 0 /HPF (0-FEW)
[2020-05-13 10:26] LABS: ALBUMIN 4.1 g/dL (3.4-5.0); ALBUMIN/GLOBULIN RATIO 0.9 (1.0-1.7); MAGNESIUM 2.2 mg/dL (1.8-2.4); TOTAL BILIRUBIN 0.7 mg/dL (0.2-1.0); TOTAL PROTEIN 8.9 g/dL (6.4-8.2)
[2020-05-13] MEDS ORDERED: KETOROLAC 30 MG/ML VIAL. IVP ONE (10:45)
[2020-05-13 11:23] LABS: % BANDS 5 % (0-9); % LYMPHS 8 % (24-48); % MONOS 3 % (0-10); % SEGS 84 % (35-66); PLT ESTIMATE ADEQUATE (ADEQUATE)
--- NOTE | 2020-05-13 11:36 | RAD ---
EXAM: CT Abdomen and Pelvis without IV contrast INDICATION: Reason: flank pain / Spl. Instructions: / History: TECHNIQUE: Multi-detector row CT images were acquired from the lung bases through the abdomen and pelvis without the use of IV contrast. Sagittal and coronal images were acquired from the transaxial data. All CT scans performed at this facility utilize dose optimization techniques as appropriate to the exam, including the following: Automated exposure control and adjustment of the mA and/or KV according to patient size (this includes techniques or standardized protocols for targeted exams where dose is indication/reason for exam). ORAL CONTRAST: None COMPARISON: 05/03/[address] with oral and IV contrast FINDINGS: The absence of IV contrast limits evaluation of soft tissue pathology. LOWER CHEST: No acute findings. LIVER: Multiple heterogeneously hypodense liver lesions compatible with metastases are redemonstrated, better evaluated on contrast imaging on the prior examination of 10 days ago. BILIARY SYSTEM: Gallbladder is unremarkable. Bile ducts are not dilated. PANCREAS: Unremarkable SPLEEN: Unremarkable ADRENALS: Unremarkable KIDNEYS & URETERS: Stable left double-J nephroureteral stent with no interval hydronephrosis. Right kidney shows a subtle punctate density at the inferior pole that could represent artifact (image 83 of axial series 2) or developing calcification. Stable hypodensity in the left renal cortex measuring 1.2 cm, compatible with a cyst. This needs no additional imaging follow-up. No right hydronephrosis or perirenal stranding. No right hydroureter or ureteral stones identified. BLADDER: Unremarkable REPRODUCTIVE ORGANS: Unremarkable GASTROINTESTINAL: Diverting colostomy in the midabdomen is redemonstrated. No findings of bowel obstruction or perforation. The appendix is normal. MESENTERY/PERITONEUM/RETROPERITONEUM: Marginal interval increase in bulk in retroperitoneal periureteral soft tissue as assessed at the level of a tumoral calcification evident on image 120 of axial series 2 versus image 52 of axial series 4. In absolute measurements, the maximum transverse diameter now is 2.1 cm compared with 1.9 cm on the prior study. Maximum AP diameter now measures 1.9 cm compared with 1.6 cm previously. VASCULAR: Unremarkable LYMPH NODES: No adenopathy OSSEOUS & SOFT TISSUES: Unremarkable IMPRESSION: Marginal increase in left lower quadrant retroperitoneal soft tissue mass abutting the left ureter with stable positioning and appearance of a left double-J nephroureteral stent. No interval hydronephrosis. No other findings to explain flank pain identified on noncontrast abdomen and pelvis CT. Electronically signed by: Jhony Antunez MD (05/13/2020 11:34 AM) [id number]
[2020-05-13] MEDS ORDERED: cefTRIAXone IV Push 1 GM VIAL. IVP ONE (12:00)
[2020-05-13] MEDS ORDERED: POTASSIUM CHLORIDE 10 MEQ TABLET.ER. PO ONE (12:30)
[2020-05-13] MEDS ORDERED: CIPR500T94 PO (13:35)
[2020-05-13 13:48] VITALS: BP 162/97
== END 2020-05-13 13:48 | disposition home or self-care (01) ==
LOC: ER 08:54
DX: N39.0 Urinary tract infection, site not specified (principal); R10.9 Unspecified abdominal pain; I10 Essential (primary) hypertension; Z85.038 Personal history of other malignant neoplasm of large intestine; Z90.89 Acquired absence of other organs; Z98.890 Other specified postprocedural states
CPT/HCPCS: 36415; 74176; 80053; 81001; 83735; 85007; 85025; 87086; 96361; 96374; 96375; 99285; J0696; J1885; J2270; J2405; J7030

== ENCOUNTER 2020-05-16 | Emergency (ER) | payer OTHER ==
[~2020-05-16] VITALS: Ht 167.6 cm; Wt 58.6 kg
[~2020-05-16] MED LIST changes: +CIPR500T94 PO
[2020-05-16 01:48] VITALS: BP 137/89
[2020-05-16 02:12] LABS: BILIRUBIN,URINE NEGATIVE (NEG); CLARITY,URINE CLEAR; COLOR,URINE YELLOW; NITRITE,URINE NEGATIVE (NEG); PH,URINE 6.5 (<5.0-8.0); PROTEIN,URINE 30 mg/dL (NEG-TRACE); UROBILINOGEN,URINE 0.2 mg/dL (0.2 mg/dL)
[2020-05-16 02:20] LABS: BACTERIA,URINE 0 /HPF (0-FEW); RBC,URINE 20-40 /HPF (0-2)
--- NOTE | 2020-05-16 02:25 | PHYS DOC ---
Past Medical History Past Medical History: Hypertension, Other Additional Past Medical Histor: COLON CX W/ CHEMO AND KIDNEY STENTS Past Surgical History: Colectomy, Other Additional Past Surgical Histo: colostomy placement, SPINAL SX Smoking Status: Never Smoker Alcohol Use: None Drug Use: None General Adult EDM: Chief Complaint: BACK PAIN OR INJURY HPI: HPI: Patient is a 59 year old male with past medical history: CA and kidney stents presents with a chief complaint of left flank pain. Patient states he was here on the diagnosed with a urinary tract infection. States he was discharged home with antibiotics was does not recall the name. Patient states he has been taking medications as prescribed. Patient states around 2300 hrs. he started to experience left flank pain. Patient denies any urinary frequency or urinary urgency. Review of Systems: Review of Systems: Constitutional: Denies fever or chills. [] Eyes: Denies change in visual acuity. [] HENT: Denies nasal congestion or sore throat. [] Respiratory: Denies cough or shortness of breath. [] Cardiovascular: Denies chest pain or edema. [] GI: Denies abdominal pain, nausea, vomiting, bloody stools or diarrhea. [] : Denies dysuria. [] Positive flank pain Musculoskeletal: Denies back pain or joint pain. [] Integument: Denies rash. [] Neurologic: Denies headache, focal weakness or sensory changes. [] Endocrine: Denies polyuria or polydipsia. [] Lymphatic: Denies swollen glands. [] Psychiatric: Denies depression or anxiety. [] Heart Score: Risk Factors: Risk Factors: DM, Current or recent (<one month) smoker, HTN, HLP, family history of CAD, obesity. Risk Scores: Score 0 - 3: 2.5% MACE over next 6 weeks - Discharge Home Score 4 - 6: 20.3% MACE over next 6 weeks - Admit for Clinical Observation Score 7 - 10: 72.7% MACE over next 6 weeks - Early Invasive Strategies Allergies: Allergies: Allergies Coded Allergies Type Severity Reaction Last Updated Verified No Known Drug Allergies 01/07/20 No Physical Exam: PE: Constitutional: Well developed, well nourished, no acute distress, non-toxic appearance. [] HENT: Normocephalic, atraumatic, bilateral external ears normal, oropharynx moist, no oral exudates, nose normal. [] Eyes: PERRLA, EOMI, conjunctiva normal, no discharge. [] Neck: Normal range of motion, no tenderness, supple, no stridor. [] Cardiovascular:Heart rate regular rhythm, no murmur [] Lungs & Thorax: Bilateral breath sounds clear to auscultation [] Abdomen: Bowel sounds normal, soft, no tenderness, no masses, no pulsatile masses. [] Skin: Warm, dry, no erythema, no rash. [] Back: No tenderness, no CVA tenderness. [] Flank pain not reproducible to palpation Extremities: No tenderness, no cyanosis, no clubbing, ROM intact, no edema. [] Neurologic: Alert and oriented X 3, normal motor function, normal sensory function, no focal deficits noted. [] Psychologic: Affect normal, judgement normal, mood normal. [] Current Patient Data: Labs: Laboratory Tests Test 05/16/20 01:55 Urine Collection Type Unknown Urine Color Yellow Urine Clarity Clear Urine pH 6.5 (<5.0-8.0) Urine Specific [place] 1.010 (1.000-1.030) Urine Protein 30 mg/dL (NEG-TRACE) Urine Glucose (UA) Negative mg/dL (NEG) Urine Ketones (Stick) Negative mg/dL (NEG) Urine Blood Moderate (NEG) Urine Nitrite Negative (NEG) Urine Bilirubin Negative (NEG) Urine Urobilinogen Dipstick 0.2 mg/dL (0.2 mg/dL) Urine Leukocyte Esterase Moderate (NEG) Urine RBC 20-40 /HPF (0-2) Urine WBC 11-20 /HPF (0-4) Urine Squamous Epithelial Cells Occ /LPF Urine Bacteria 0 /HPF (0-FEW) Urine Mucus Slight /LPF Vital Signs: Vital Signs Date Time Temp Pulse Resp B/P (MAP) Pulse Ox O2 Delivery O2 Flow Rate FiO2 05/16/20 01:48 98.4 88 18 137/89 (105) 98 98.4 EKG: EKG: [] Radiology/Procedures: Radiology/Procedures: [] Course & Med Decision Making: Course & Med Decision Making Pertinent Labs and Imaging studies reviewed. (See chart for details) [] Patient was evaluated for chief complaint. Urine positive leukocyte esterase positive WBCs. Patient was discharged home on Cipro and has been taken as prescribed. Appears that patient is not responding to Cipro. Will change patient's antibiotic to Macrobid. Patient will receive his first dose of Macrobid in the ER. Patient is declining pain medications at this time. Will prescribe patient [place]. Did not order CT abdomen and pelvis during this visit. Patient had a CT abdomen pelvis on 05/13. Davey Disclaimer: Davey Disclaimer: This electronic medical record was generated, in whole or in part, using a voice recognition dictation system. Departure Departure Impression: Primary Impression: Flank pain Additional Impression: UTI (urinary tract infection) Disposition: [place] HOME SELF CARE/HOMELESS Condition: STABLE Referrals: JARED PHOENIX MD (PCP) Patient Instructions: Flank Pain, Urinary Tract Infection Scripts Hydrocodone/Apap 5-325 (NORCO 5-325 TABLET) 1 Each Tablet 1 TAB PO PRN Q6HRS PRN for PAIN for 10 Days, #14 TAB 0 Refills Prov: ZOFIA JAQUEZ DO 05/16/20 Nitrofurantoin Monohyd/M-Cryst (MACROBID 100 MG CAPSULE) 100 Mg Capsule 1 CAP PO BID for 10 Days, #20 CAP 0 Refills Prov: ZOFIA JAQUEZ DO 05/16/20 ZOFIA JAQUEZ DO May 16, 2020 02:25
[2020-05-16] MEDS ORDERED: HYDR-3164 PO (02:34)
[2020-05-16] MEDS ORDERED: NITR100C62 PO (02:34)
[2020-05-16] MEDS ORDERED: NITROFURANTOIN MONOHYD/M-CRYST 100 MG CAPSULE. PO ONE (02:45)
--- NOTE | 2020-05-16 03:18 | RAD ---
CT abdomen pelvis without contrast. HISTORY: Left flank pain. CT scan the abdomen pelvis was done without contrast. Comparison is made with a recent study. Lung bases are clear. There is no effusion. There are hepatic cysts. Liver is heterogeneous with possible masses in the liver, metastatic disease would be possible, post contrast CT or MRI the liver recommended. There is no calcified gallstone. Spleen and adrenal glands are normal. There is no definite pancreatic lesion although not well evaluated without contrast. There is no intrarenal calculus in the right kidney. There is a double-J catheter in the left renal collecting system. There is no left hydronephrosis. A calculus along the ureter is not identified. There is persistent mass near the iliac vessels on the left and along the ureter without change from the recent study. Bladder is unremarkable. There is no bowel obstruction. There is moderate stool in the colon. Appendix is normal. There is an ostomy to the left midline. IMPRESSION: 1. Double-J catheter in the left renal collecting system. 2. A ureteral calculus is not identified. 3. Persistent soft tissue density or mass along the iliac vessels on the left and along the ureter at that level. 4. Liver lesions suggesting metastatic disease without change. PQRS Compliance Statement: One or more of the following individualized dose reduction techniques were utilized for this examination: 1. Automated exposure control 2. Adjustment of the mA and/or kV according to patient size 3. Use of iterative reconstruction technique Electronically signed by: Rj Jerry MD (05/16/2020 3:15 AM) [id number]
== END 2020-05-16 02:59 | disposition home or self-care (01) ==
LOC: ER
DX: N39.0 Urinary tract infection, site not specified (principal); R10.9 Unspecified abdominal pain; I10 Essential (primary) hypertension; Z90.89 Acquired absence of other organs; Z98.890 Other specified postprocedural states
CPT/HCPCS: 74176; 81001; 87086; 99284

== ENCOUNTER → 2020-05-24 | Outpatient (CLI) | payer OTHER ==
[2020-05-16 01:48] VITALS: BP 137/89
[~2020-05-24] MED LIST changes: +HYDR-3164 PO; +NITR100C62 PO
[2020-05-24 10:40] LABS: BASO # 0.1 x10^3/uL (0.0-0.2); BASO % 1 % (0-3); CALCIUM 9.7 mg/dL (8.5-10.1); CREATININE 1.3 mg/dL (0.7-1.3); EOS # 0.1 x10^3/uL (0.0-0.7); EOS % 2 % (0-3); GFR 68.8; HEMATOCRIT 31.6 % (39.0-53.0); HEMOGLOBIN 10.5 g/dL (13.0-17.5); LYMPH % 24 % (24-48); MEAN CORPUSCULAR HEMOGLOBIN 31 pg (25-35); MEAN CORPUSCULAR HGB CONC 33 g/dL (31-37); MEAN CORPUSCULAR VOLUME 94 fL (79-100); MONO # 0.3 x10^3/uL (0.0-1.1); MONO % 8 % (0-9); NEUT # 2.7 x10^3/uL (1.8-7.7); NEUT % 65 % (31-73); PLATELET COUNT 302 x10^3/uL (140-400); POTASSIUM 3.5 mmol/L (3.5-5.1); RED BLOOD COUNT 3.36 x10^6/uL (4.30-5.70); WHITE BLOOD COUNT 4.1 x10^3/uL (4.0-11.0)
[2020-05-24 10:43] LABS: CREATININE,RANDOM URINE 126.1 mg/dL (Not Establ.)
[2020-05-24 10:46] LABS: ALBUMIN 3.8 g/dL (3.4-5.0); ALBUMIN/GLOBULIN RATIO 0.8 (1.0-1.7); TOTAL BILIRUBIN 0.3 mg/dL (0.2-1.0); TOTAL PROTEIN 8.3 g/dL (6.4-8.2)
== END ==
LOC: ONCLAB 10:14
PROVIDERS: ATTEND Internal Medicine Hematology & Oncology
DX: C18.7 Malignant neoplasm of sigmoid colon (principal)
CPT/HCPCS: 36415; 80053; 82378; 82570; 84156; 85025

== ENCOUNTER → 2020-05-26 | Outpatient (CLI) | payer OTHER ==
[2020-05-16 01:48] VITALS: BP 137/89
[2020-05-26 15:23] LABS: BILIRUBIN,URINE NEGATIVE (NEG); CLARITY,URINE CLEAR; COLOR,URINE YELLOW; NITRITE,URINE NEGATIVE (NEG); PROTEIN,URINE 100 mg/dL (NEG-TRACE); UROBILINOGEN,URINE 0.2 mg/dL (0.2 mg/dL)
[2020-05-26 15:34] LABS: BACTERIA,URINE 0 /HPF (0-FEW); RBC,URINE >40 /HPF (0-2)
== END ==
LOC: LAB 14:26
PROVIDERS: ATTEND Internal Medicine
DX: N39.0 Urinary tract infection, site not specified (principal)
CPT/HCPCS: 81001; 87086

== ENCOUNTER → 2020-06-07 | Outpatient (CLI) | payer OTHER ==
[2020-05-16 01:48] VITALS: BP 137/89
[2020-06-07 10:24] LABS: BASO % 1 % (0-3); EOS # 0.1 x10^3/uL (0.0-0.7); EOS % 2 % (0-3); HEMATOCRIT 32.5 % (39.0-53.0); HEMOGLOBIN 10.8 g/dL (13.0-17.5); LYMPH # 1.3 x10^3/uL (1.0-4.8); LYMPH % 27 % (24-48); MEAN CORPUSCULAR HEMOGLOBIN 31 pg (25-35); MEAN CORPUSCULAR HGB CONC 33 g/dL (31-37); MEAN CORPUSCULAR VOLUME 94 fL (79-100); MONO # 0.4 x10^3/uL (0.0-1.1); MONO % 8 % (0-9); NEUT % 63 % (31-73); PLATELET COUNT 257 x10^3/uL (140-400); RED BLOOD COUNT 3.46 x10^6/uL (4.30-5.70); RED CELL DISTRIBUTION WIDTH 16.7 % (11.5-14.5); WHITE BLOOD COUNT 4.8 x10^3/uL (4.0-11.0)
[2020-06-07 10:38] LABS: CALCIUM 9.1 mg/dL (8.5-10.1); CREATININE 1.4 mg/dL (0.7-1.3); GFR 63.2; POTASSIUM 3.2 mmol/L (3.5-5.1)
[2020-06-07 10:43] LABS: ALBUMIN 3.8 g/dL (3.4-5.0); ALBUMIN/GLOBULIN RATIO 0.9 (1.0-1.7); TOTAL BILIRUBIN 0.3 mg/dL (0.2-1.0); TOTAL PROTEIN 8.2 g/dL (6.4-8.2)
== END ==
LOC: ONCLAB 09:48
PROVIDERS: ATTEND Internal Medicine Hematology & Oncology
DX: C18.7 Malignant neoplasm of sigmoid colon (principal)
CPT/HCPCS: 36415; 80053; 82378; 85025; 87086

== ENCOUNTER → 2020-06-17 | Outpatient (CLI) | payer OTHER | LOC: LAB 15:07 | PROVIDERS: ATTEND Urology | DX: N13.39 Other hydronephrosis (principal); R82.79 Other abnormal findings on microbiological examination of urine | CPT/HCPCS: 87086 ==

== ENCOUNTER → 2020-06-28 | Outpatient (CLI) | payer OTHER ==
[~2020-06-28] MED LIST changes: +CEPH-264 PO; +OXYC1TAB15 PO
[2020-06-28 09:39] LABS: BASO # 0.1 x10^3/uL (0.0-0.2); BASO % 1 % (0-3); EOS # 0.2 x10^3/uL (0.0-0.7); EOS % 4 % (0-3); HEMATOCRIT 32.9 % (39.0-53.0); HEMOGLOBIN 10.8 g/dL (13.0-17.5); LYMPH # 1.3 x10^3/uL (1.0-4.8); LYMPH % 27 % (24-48); MEAN CORPUSCULAR HEMOGLOBIN 31 pg (25-35); MEAN CORPUSCULAR HGB CONC 33 g/dL (31-37); MEAN CORPUSCULAR VOLUME 93 fL (79-100); MONO # 0.6 x10^3/uL (0.0-1.1); MONO % 12 % (0-9); NEUT # 2.7 x10^3/uL (1.8-7.7); NEUT % 56 % (31-73); PLATELET COUNT 267 x10^3/uL (140-400); RED BLOOD COUNT 3.55 x10^6/uL (4.30-5.70); WHITE BLOOD COUNT 4.8 x10^3/uL (4.0-11.0)
[2020-06-28 09:54] LABS: CALCIUM 9.1 mg/dL (8.5-10.1); CREATININE 1.3 mg/dL (0.7-1.3); GFR 68.8; POTASSIUM 3.6 mmol/L (3.5-5.1)
[2020-06-28 10:00] LABS: ALBUMIN 3.6 g/dL (3.4-5.0); ALBUMIN/GLOBULIN RATIO 0.8 (1.0-1.7); TOTAL BILIRUBIN 0.4 mg/dL (0.2-1.0)
== END ==
LOC: ONCLAB 09:16
PROVIDERS: ATTEND Internal Medicine Hematology & Oncology
DX: C18.7 Malignant neoplasm of sigmoid colon (principal)
CPT/HCPCS: 36415; 80053; 82378; 85025; 87086

== ENCOUNTER 2020-07-01 12:03 | Emergency (ER) | payer OTHER ==
[~2020-07-01] VITALS: Ht 167.6 cm; Wt 60.4 kg
[~2020-07-01 12:03] MED LIST changes: -CEPH-264 PO; -OXYC1TAB15 PO
[2020-07-01 13:12] LABS: BILIRUBIN,URINE NEGATIVE (NEG); CLARITY,URINE CLOUDY; COLOR,URINE YELLOW; NITRITE,URINE NEGATIVE (NEG); PROTEIN,URINE 100 mg/dL (NEG-TRACE); UROBILINOGEN,URINE 0.2 mg/dL (0.2 mg/dL)
[2020-07-01 13:21] LABS: RBC,URINE >40 /HPF (0-2)
[2020-07-01 13:22] LABS: BACTERIA,URINE MODERATE /HPF (0-FEW); WBC,URINE 20-40 /HPF (0-4)
[2020-07-01 13:45] LABS: BASO # 0.1 x10^3/uL (0.0-0.2); BASO % 1 % (0-3); EOS # 0.1 x10^3/uL (0.0-0.7); EOS % 2 % (0-3); HEMATOCRIT 33.7 % (39.0-53.0); HEMOGLOBIN 11.4 g/dL (13.0-17.5); LYMPH # 1.7 x10^3/uL (1.0-4.8); LYMPH % 27 % (24-48); MEAN CORPUSCULAR HEMOGLOBIN 31 pg (25-35); MEAN CORPUSCULAR HGB CONC 34 g/dL (31-37); MEAN CORPUSCULAR VOLUME 93 fL (79-100); MONO # 0.3 x10^3/uL (0.0-1.1); MONO % 5 % (0-9); NEUT # 3.9 x10^3/uL (1.8-7.7); NEUT % 65 % (31-73); PLATELET COUNT 251 x10^3/uL (140-400); RED BLOOD COUNT 3.64 x10^6/uL (4.30-5.70); RED CELL DISTRIBUTION WIDTH 17.1 % (11.5-14.5); WHITE BLOOD COUNT 6.1 x10^3/uL (4.0-11.0)
[2020-07-01 13:56] LABS: CALCIUM 9.3 mg/dL (8.5-10.1); CREATININE 1.2 mg/dL (0.7-1.3); GFR 75.5; POTASSIUM 3.4 mmol/L (3.5-5.1)
[2020-07-01 14:13] LABS: ALBUMIN 3.6 g/dL (3.4-5.0); ALBUMIN/GLOBULIN RATIO 0.8 (1.0-1.7); MAGNESIUM 2.6 mg/dL (1.8-2.4); TOTAL BILIRUBIN 0.6 mg/dL (0.2-1.0); TOTAL PROTEIN 8.2 g/dL (6.4-8.2)
[2020-07-01] MEDS ORDERED: CEPH-264 PO (14:39)
[2020-07-01] MEDS ORDERED: OXYC1TAB15 PO (14:39)
--- NOTE | 2020-07-01 14:39 | ED.ADGEN ---
Past Medical History Past Medical History: Hypertension, Urolithiasis, Other Additional Past Medical Histor: COLON CX W/ CHEMO AND KIDNEY STENTS Past Surgical History: Colectomy, Other Additional Past Surgical Histo: colostomy placement, SPINAL SX Smoking Status: Never Smoker Alcohol Use: None Drug Use: None General Adult EDM: Chief Complaint: FLANK PAIN HPI: HPI: Patient is a 59-year-old male with past medical history of colon cancer who presents to the emergency room complaining of left flank pain. He recently had a stent placed in his ureter due to obstruction. He got an infection Review of Systems: Review of Systems: Constitutional: Denies fever or chills. [] Eyes: Denies change in visual acuity. [] HENT: Denies nasal congestion or sore throat. [] Respiratory: Denies cough or shortness of breath. [] Cardiovascular: Denies chest pain or edema. [] GI: Denies abdominal pain, nausea, vomiting, bloody stools or diarrhea. [] : Denies dysuria. [] Musculoskeletal: Denies back pain or joint pain. [] Integument: Denies rash. [] Neurologic: Denies headache, focal weakness or sensory changes. [] Endocrine: Denies polyuria or polydipsia. [] Lymphatic: Denies swollen glands. [] Psychiatric: Denies depression or anxiety. [] Allergies: Allergies: Allergies Coded Allergies Type Severity Reaction Last Updated Verified No Known Drug Allergies 01/07/20 No Physical Exam: PE: Constitutional: Well developed, well nourished, no acute distress, non-toxic appearance. [] HENT: Normocephalic, atraumatic, bilateral external ears normal, oropharynx moist, no oral exudates, nose normal. [] Eyes: PERRLA, EOMI, conjunctiva normal, no discharge. [] Neck: Normal range of motion, no tenderness, supple, no stridor. [] Cardiovascular:Heart rate regular rhythm, no murmur [] Lungs & Thorax: Bilateral breath sounds clear to auscultation [] Abdomen: Bowel sounds normal, soft, no tenderness, no masses, no pulsatile masses. [] Skin: Warm, dry, no erythema, no rash. [] Back: No tenderness, no CVA tenderness. [] Extremities: No tenderness, no cyanosis, no clubbing, ROM intact, no edema. [] Neurologic: Alert and oriented X 3, normal motor function, normal sensory function, no focal deficits noted. [] Psychologic: Affect normal, judgement normal, mood normal. [] Current Patient Data: Labs: Laboratory Tests Test 07/01/20 13:00 07/01/20 13:23 Urine Collection Type Unknown Urine Color Yellow Urine Clarity Cloudy Urine pH 6.0 (<5.0-8.0) Urine Specific [place] 1.020 (1.000-1.030) Urine Protein 100 mg/dL (NEG-TRACE) Urine Glucose (UA) Negative mg/dL (NEG) Urine Ketones (Stick) Negative mg/dL (NEG) Urine Blood Large (NEG) Urine Nitrite Negative (NEG) Urine Bilirubin Negative (NEG) Urine Urobilinogen Dipstick 0.2 mg/dL (0.2 mg/dL) Urine Leukocyte Esterase Large (NEG) Urine RBC >40 /HPF (0-2) Urine WBC 20-40 /HPF (0-4) Urine Squamous Epithelial Cells Occ /LPF Urine Bacteria Moderate /HPF (0-FEW) Urine Mucus Slight /LPF White Blood Count 6.1 x10^3/uL (4.0-11.0) Red Blood Count 3.64 x10^6/uL (4.30-5.70) L Hemoglobin 11.4 g/dL (13.0-17.5) L Hematocrit 33.7 % (39.0-53.0) L Mean Corpuscular Volume 93 fL (79-100) Mean Corpuscular Hemoglobin 31 pg (25-35) Mean Corpuscular Hemoglobin Concent 34 g/dL (31-37) Red Cell Distribution Width 17.1 % (11.5-14.5) H Platelet Count 251 x10^3/uL (140-400) Neutrophils (%) (Auto) 65 % (31-73) Lymphocytes (%) (Auto) 27 % (24-48) Monocytes (%) (Auto) 5 % (0-9) Eosinophils (%) (Auto) 2 % (0-3) Basophils (%) (Auto) 1 % (0-3) Neutrophils # (Auto) 3.9 x10^3/uL (1.8-7.7) Lymphocytes # (Auto) 1.7 x10^3/uL (1.0-4.8) Monocytes # (Auto) 0.3 x10^3/uL (0.0-1.1) Eosinophils # (Auto) 0.1 x10^3/uL (0.0-0.7) Basophils # (Auto) 0.1 x10^3/uL (0.0-0.2) Sodium Level 133 mmol/L (136-145) L Potassium Level 3.4 mmol/L (3.5-5.1) L Chloride Level 97 mmol/L (98-107) L Carbon Dioxide Level 26 mmol/L (21-32) Anion Gap 10 (6-14) Blood Urea Nitrogen 25 mg/dL (8-26) Creatinine 1.2 mg/dL (0.7-1.3) Estimated GFR (Cockcroft-Gault) 75.5 BUN/Creatinine Ratio 21 (6-20) H Glucose Level 79 mg/dL (70-99) Calcium Level 9.3 mg/dL (8.5-10.1) Magnesium Level 2.6 mg/dL (1.8-2.4) H Total Bilirubin 0.6 mg/dL (0.2-1.0) Aspartate Amino Transferase (AST) 65 U/L (15-37) H Alanine Aminotransferase (ALT) 70 U/L (16-63) H Alkaline Phosphatase 245 U/L (46-116) H Total Protein 8.2 g/dL (6.4-8.2) Albumin 3.6 g/dL (3.4-5.0) Albumin/Globulin Ratio 0.8 (1.0-1.7) L Laboratory Tests 07/01/20 13:23 Laboratory Tests 07/01/20 13:23 Vital Signs: Vital Signs Date Time Temp Pulse Resp B/P (MAP) Pulse Ox O2 Delivery O2 Flow Rate FiO2 07/01/20 13:06 98.7 89 17 131/78 (95) 100 Room Air 98.7 EKG: EKG: [] Heart Score: Risk Factors: Risk Factors: DM, Current or recent (<one month) smoker, HTN, HLP, family history of CAD, obesity. Risk Scores: Score 0 - 3: 2.5% MACE over next 6 weeks - Discharge Home Score 4 - 6: 20.3% MACE over next 6 weeks - Admit for Clinical Observation Score 7 - 10: 72.7% MACE over next 6 weeks - Early Invasive Strategies Radiology/Procedures: Radiology/Procedures: [] Course & Med Decision Making: Course & Med Decision Making Pertinent Labs and Imaging studies reviewed. (See chart for details) [] Dragon Disclaimer: Dragon Disclaimer: This electronic medical record was generated, in whole or in part, using a voice recognition dictation system. Departure Departure Impression: Primary Impression: Urinary tract infection Disposition: [place] HOME SELF CARE/HOMELESS Condition: STABLE Referrals: JARED PHOENIX MD (PCP) Patient Instructions: Urinary Tract Infection Scripts Oxycodone/Apap 5-325 (PERCOCET 5-325 MG TABLET ) 1 Each Tablet 1 TAB PO PRN Q6HRS PRN for PAIN, #12 TAB 0 Refills Prov: TAMIKO SALEH MD 07/01/20 Cephalexin (KEFLEX) 500 Mg Capsule 1 CAP PO Q8HRS for 14 Days, #42 CAP 0 Refills Prov: TAMIKO SALEH MD 07/01/20 TAMIKO SALEH MD Jul 01, 2020 14:39
[2020-07-01 15:25] VITALS: BP 115/69
== END 2020-07-01 15:30 | disposition home or self-care (01) ==
LOC: ER 12:03
DX: N39.0 Urinary tract infection, site not specified (principal); I10 Essential (primary) hypertension; Z93.3 Colostomy status; Z90.49 Acquired absence of other specified parts of digestive tract; Z85.038 Personal history of other malignant neoplasm of large intestine; Z95.5 Presence of coronary angioplasty implant and graft
CPT/HCPCS: 36415; 80053; 81001; 83735; 85025; 87086; 99285-25

== ENCOUNTER → 2020-07-07 | Outpatient (CLI) | payer OTHER ==
[2020-07-01 15:25] VITALS: BP 115/69
[~2020-07-07] MED LIST changes: +CEPH-264 PO; +CONTRAST GIVEN. MC PRN; +HEPARIN PF 500 UNIT/5 ML DISP.SYRIN. IVP ONE; +IOHEXOL 240 MG/ML 50ML VIAL. PO ONE; +IOHEXOL 300 MG/ML 100ML VIAL. IV ONE; +OXYC1TAB15 PO
--- NOTE | 2020-07-07 17:45 | RAD ---
Examination: CT CHEST ABD PELVIS W/CONTRAST History: Reason: colon cancer / Spl. Instructions: / History: omni 300 75ml om ni 240 50ml Comparison/Correlation: 05/16/2020 CT abdomen and pelvis without contrast, 05/03/2020 CT chest abdomen and pelvis with contrast Findings: Axial images of the chest, abdomen, and pelvis were obtained following IV contrast. Sagittal and coronal reformatted images were provided. Small groundglass nodule in the right inferiorly on axial image 46 is present measuring 0.4 cm diameter. This finding is less dense than the corresponding nodule seen on 05/03/2020. Left apical pulmonary nodule on image 15 measuring 0.3 cm in diameter and is similar to the previous exam. No suspicious new left lower lobe nodule. Nodule previously present on axial image 33 does not have a definite corresponding on the current exam. No new infiltrates. Calcific granuloma in the lateral aspect of the left right sided central venous infusion port tip terminates within the superior vena cava. Thoracic aorta is unremarkable. Multiple masses are again present throughout the liver. At the left hepatic dome on axial image 9, a hypoenhancing mass measuring 3 cm x 4 cm is present. Compared to previous exam in which the mass measured 3.5 cm x 2.6. Right hepatic dome mass on axial image 12 measures up to 4.7 cm diameter and this is increased compared to previous exam in which it measured 4.3 cm in diameter. Caudate lobe mass on axial image 11 measuring up to 7.4 cm increased since the prior exam where it measured 6.6 cm. Other masses also seen in the liver are mildly increased in size. Spleen, pancreas, adrenal glands, and gallbladder fossa are unremarkable. Right renal lower pole cyst is small in size. Left ureteral stent again seen. Soft tissue density along the medial aspect of the ureter at the upper pelvic cavity level is present similar to the prior exam. Left renal cervical spine noted. Left renal atrophy is again noted. Left lower abdominal ostomy is noted. No bowel obstruction. No enlarged abdominal or pelvic lymph nodes. No ascites or pelvic free fluid. Bony structures are unremarkable. Impression: Interval increase in size of multiple hepatic metastases. No definite new hepatic mass. No interval development of lymphadenopathy. Few small pulmonary nodules are present with overall improvement. PQRS Compliance Statement: One or more of the following individualized dose reduction techniques were utilized for this examination: 1. Automated exposure control 2. Adjustment of the mA and/or kV according to patient size 3. Use of iterative reconstruction technique Electronically signed by: En Beltran MD (07/07/2020 5:42 PM) [id number]
== END ==
LOC: CT 09:45
PROVIDERS: ATTEND Internal Medicine Hematology & Oncology
DX: C18.7 Malignant neoplasm of sigmoid colon (principal); R16.0 Hepatomegaly, not elsewhere classified; N26.1 Atrophy of kidney (terminal); R91.1 Solitary pulmonary nodule
CPT/HCPCS: 71260; 74177; J1642; Q9966; Q9967

== ENCOUNTER → 2020-07-26 | Outpatient (CLI) | payer OTHER ==
[2020-07-20 11:37] VITALS: BP 151/93
[~2020-07-26] MED LIST changes: +ASCO500C9 PO; +CALC-71 PO; -CONTRAST GIVEN. MC PRN; +FERR-36 PO; -HEPARIN PF 500 UNIT/5 ML DISP.SYRIN. IVP ONE; -IOHEXOL 240 MG/ML 50ML VIAL. PO ONE; -IOHEXOL 300 MG/ML 100ML VIAL. IV ONE; +LACT100C2 PO; +MECO10005 PO; +POTA99TA3 PO
[2020-07-26 10:35] LABS: BASO # 0.1 x10^3/uL (0.0-0.2); BASO % 1 % (0-3); EOS # 0.1 x10^3/uL (0.0-0.7); EOS % 2 % (0-3); HEMATOCRIT 33.3 % (39.0-53.0); LYMPH # 0.9 x10^3/uL (1.0-4.8); LYMPH % 21 % (24-48); MEAN CORPUSCULAR HEMOGLOBIN 30 pg (25-35); MEAN CORPUSCULAR HGB CONC 33 g/dL (31-37); MEAN CORPUSCULAR VOLUME 92 fL (79-100); MONO # 0.4 x10^3/uL (0.0-1.1); MONO % 8 % (0-9); NEUT # 3.1 x10^3/uL (1.8-7.7); NEUT % 68 % (31-73); PLATELET COUNT 239 x10^3/uL (140-400); RED BLOOD COUNT 3.63 x10^6/uL (4.30-5.70); RED CELL DISTRIBUTION WIDTH 17.6 % (11.5-14.5); WHITE BLOOD COUNT 4.6 x10^3/uL (4.0-11.0)
[2020-07-26 10:38] LABS: CREATININE 1.3 mg/dL (0.7-1.3); GFR 68.6; POTASSIUM 3.4 mmol/L (3.5-5.1)
[2020-07-26 10:44] LABS: ALBUMIN 3.7 g/dL (3.4-5.0); ALBUMIN/GLOBULIN RATIO 0.8 (1.0-1.7); TOTAL BILIRUBIN 0.2 mg/dL (0.2-1.0); TOTAL PROTEIN 8.1 g/dL (6.4-8.2)
== END ==
LOC: ONCLAB 08:38
PROVIDERS: ATTEND Internal Medicine Hematology & Oncology
DX: C18.7 Malignant neoplasm of sigmoid colon (principal)
CPT/HCPCS: 36415; 80053; 82378; 82570; 84156; 85025

== ENCOUNTER → 2020-08-09 | Outpatient (CLI) | payer OTHER ==
[2020-07-20 11:37] VITALS: BP 151/93
[2020-08-09 09:58] LABS: BASO # 0.1 x10^3/uL (0.0-0.2); BASO % 1 % (0-3); EOS # 0.2 x10^3/uL (0.0-0.7); EOS % 4 % (0-3); HEMATOCRIT 32.2 % (39.0-53.0); HEMOGLOBIN 10.6 g/dL (13.0-17.5); LYMPH # 1.1 x10^3/uL (1.0-4.8); LYMPH % 23 % (24-48); MEAN CORPUSCULAR HEMOGLOBIN 30 pg (25-35); MEAN CORPUSCULAR HGB CONC 33 g/dL (31-37); MEAN CORPUSCULAR VOLUME 91 fL (79-100); MONO # 0.5 x10^3/uL (0.0-1.1); MONO % 11 % (0-9); NEUT # 2.9 x10^3/uL (1.8-7.7); NEUT % 62 % (31-73); PLATELET COUNT 248 x10^3/uL (140-400); RED BLOOD COUNT 3.54 x10^6/uL (4.30-5.70); RED CELL DISTRIBUTION WIDTH 17.3 % (11.5-14.5); WHITE BLOOD COUNT 4.7 x10^3/uL (4.0-11.0)
[2020-08-09 10:08] LABS: CALCIUM 9.4 mg/dL (8.5-10.1); CREATININE 1.4 mg/dL (0.7-1.3); POTASSIUM 3.4 mmol/L (3.5-5.1)
[2020-08-09 10:17] LABS: ALBUMIN 3.7 g/dL (3.4-5.0); ALBUMIN/GLOBULIN RATIO 0.9 (1.0-1.7); TOTAL BILIRUBIN 0.3 mg/dL (0.2-1.0); TOTAL PROTEIN 7.9 g/dL (6.4-8.2)
== END ==
LOC: ONCLAB 09:14
PROVIDERS: ATTEND Internal Medicine Hematology & Oncology
DX: C18.7 Malignant neoplasm of sigmoid colon (principal)
CPT/HCPCS: 36415; 80053; 84156; 85025

== ENCOUNTER → 2020-08-24 | Outpatient (CLI) | payer OTHER ==
[2020-07-20 11:37] VITALS: BP 151/93
[2020-08-24 12:04] LABS: BASO # 0.1 x10^3/uL (0.0-0.2); BASO % 1 % (0-3); EOS # 0.1 x10^3/uL (0.0-0.7); EOS % 2 % (0-3); HEMATOCRIT 31.2 % (39.0-53.0); HEMOGLOBIN 10.3 g/dL (13.0-17.5); LYMPH # 0.5 x10^3/uL (1.0-4.8); LYMPH % 10 % (24-48); MEAN CORPUSCULAR HEMOGLOBIN 30 pg (25-35); MEAN CORPUSCULAR HGB CONC 33 g/dL (31-37); MEAN CORPUSCULAR VOLUME 91 fL (79-100); MONO # 1.2 x10^3/uL (0.0-1.1); MONO % 24 % (0-9); NEUT # 3.3 x10^3/uL (1.8-7.7); NEUT % 64 % (31-73); PLATELET COUNT 238 x10^3/uL (140-400); RED BLOOD COUNT 3.44 x10^6/uL (4.30-5.70); RED CELL DISTRIBUTION WIDTH 17.3 % (11.5-14.5); WHITE BLOOD COUNT 5.2 x10^3/uL (4.0-11.0)
[2020-08-24 12:26] LABS: ALBUMIN 3.2 g/dL (3.4-5.0); ALBUMIN/GLOBULIN RATIO 0.6 (1.0-1.7); CALCIUM 9.8 mg/dL (8.5-10.1); CREATININE 1.2 mg/dL (0.7-1.3); GFR 75.2; POTASSIUM 3.3 mmol/L (3.5-5.1); TOTAL BILIRUBIN 0.9 mg/dL (0.2-1.0); TOTAL PROTEIN 8.7 g/dL (6.4-8.2)
== END ==
LOC: ONCLAB 11:44
PROVIDERS: ATTEND Internal Medicine Hematology & Oncology
DX: C18.7 Malignant neoplasm of sigmoid colon (principal); C78.7 Secondary malignant neoplasm of liver and intrahepatic bile duct; C78.02 Secondary malignant neoplasm of left lung
CPT/HCPCS: 36415; 80053; 82378; 85025

== ENCOUNTER → 2020-09-07 | Outpatient (CLI) | payer OTHER ==
[2020-07-20 11:37] VITALS: BP 151/93
[2020-09-07 10:38] LABS: CALCIUM 9.6 mg/dL (8.5-10.1); CREATININE 1.2 mg/dL (0.7-1.3); GFR 75.2; POTASSIUM 3.6 mmol/L (3.5-5.1)
[2020-09-07 10:41] LABS: BASO # 0.1 x10^3/uL (0.0-0.2); BASO % 1 % (0-3); EOS # 0.2 x10^3/uL (0.0-0.7); EOS % 3 % (0-3); HEMATOCRIT 30.8 % (39.0-53.0); HEMOGLOBIN 9.8 g/dL (13.0-17.5); LYMPH # 0.7 x10^3/uL (1.0-4.8); LYMPH % 10 % (24-48); MEAN CORPUSCULAR HEMOGLOBIN 28 pg (25-35); MEAN CORPUSCULAR HGB CONC 32 g/dL (31-37); MEAN CORPUSCULAR VOLUME 89 fL (79-100); MONO # 0.7 x10^3/uL (0.0-1.1); MONO % 10 % (0-9); NEUT # 5.2 x10^3/uL (1.8-7.7); NEUT % 76 % (31-73); PLATELET COUNT 353 x10^3/uL (140-400); RED BLOOD COUNT 3.47 x10^6/uL (4.30-5.70); RED CELL DISTRIBUTION WIDTH 17.7 % (11.5-14.5); WHITE BLOOD COUNT 6.8 x10^3/uL (4.0-11.0)
[2020-09-07 10:44] LABS: ALBUMIN 3.1 g/dL (3.4-5.0); ALBUMIN/GLOBULIN RATIO 0.6 (1.0-1.7); TOTAL BILIRUBIN 0.4 mg/dL (0.2-1.0); TOTAL PROTEIN 8.4 g/dL (6.4-8.2)
== END ==
LOC: ONCLAB 10:06
PROVIDERS: ATTEND Internal Medicine Hematology & Oncology
DX: C18.7 Malignant neoplasm of sigmoid colon (principal)
CPT/HCPCS: 36415; 80053; 82378; 85025

== ENCOUNTER → 2020-09-21 | Outpatient (CLI) | payer OTHER ==
[2020-07-20 11:37] VITALS: BP 151/93
[2020-09-21 09:45] LABS: BASO % 1 % (0-3); EOS # 0.2 x10^3/uL (0.0-0.7); EOS % 4 % (0-3); HEMATOCRIT 30.6 % (39.0-53.0); LYMPH # 0.6 x10^3/uL (1.0-4.8); LYMPH % 12 % (24-48); MEAN CORPUSCULAR HEMOGLOBIN 29 pg (25-35); MEAN CORPUSCULAR HGB CONC 33 g/dL (31-37); MEAN CORPUSCULAR VOLUME 89 fL (79-100); MONO # 0.7 x10^3/uL (0.0-1.1); MONO % 13 % (0-9); NEUT # 3.7 x10^3/uL (1.8-7.7); NEUT % 70 % (31-73); PLATELET COUNT 229 x10^3/uL (140-400); RED BLOOD COUNT 3.45 x10^6/uL (4.30-5.70); RED CELL DISTRIBUTION WIDTH 18.4 % (11.5-14.5); WHITE BLOOD COUNT 5.3 x10^3/uL (4.0-11.0)
[2020-09-21 10:09] LABS: CALCIUM 8.9 mg/dL (8.5-10.1); CREATININE 1.1 mg/dL (0.7-1.3); GFR 83.2; POTASSIUM 3.5 mmol/L (3.5-5.1)
[2020-09-21 10:16] LABS: ALBUMIN 3.1 g/dL (3.4-5.0); ALBUMIN/GLOBULIN RATIO 0.6 (1.0-1.7); TOTAL BILIRUBIN 0.6 mg/dL (0.2-1.0); TOTAL PROTEIN 7.9 g/dL (6.4-8.2)
[2020-09-21 11:25] LABS: CREATININE,RANDOM URINE 124.2 mg/dL (Not Establ.)
== END ==
LOC: ONCLAB 09:22
PROVIDERS: ATTEND Internal Medicine Hematology & Oncology
DX: C18.7 Malignant neoplasm of sigmoid colon (principal)
CPT/HCPCS: 36415; 80053; 82378; 82570; 84156; 85025

== ENCOUNTER → 2020-10-05 | Outpatient (CLI) | payer OTHER ==
[2020-07-20 11:37] VITALS: BP 151/93
[2020-10-05 10:34] LABS: BASO % 1 % (0-3); EOS # 0.1 x10^3/uL (0.0-0.7); EOS % 3 % (0-3); HEMATOCRIT 30.8 % (39.0-53.0); HEMOGLOBIN 10.1 g/dL (13.0-17.5); LYMPH # 0.5 x10^3/uL (1.0-4.8); LYMPH % 14 % (24-48); MEAN CORPUSCULAR HEMOGLOBIN 29 pg (25-35); MEAN CORPUSCULAR HGB CONC 33 g/dL (31-37); MEAN CORPUSCULAR VOLUME 88 fL (79-100); MONO # 0.5 x10^3/uL (0.0-1.1); MONO % 13 % (0-9); NEUT # 2.5 x10^3/uL (1.8-7.7); NEUT % 68 % (31-73); PLATELET COUNT 277 x10^3/uL (140-400); RED BLOOD COUNT 3.49 x10^6/uL (4.30-5.70); RED CELL DISTRIBUTION WIDTH 17.8 % (11.5-14.5); WHITE BLOOD COUNT 3.7 x10^3/uL (4.0-11.0)
[2020-10-05 10:55] LABS: CREATININE,RANDOM URINE 153.7 mg/dL (Not Establ.)
[2020-10-05 10:56] LABS: CREATININE 1.1 mg/dL (0.7-1.3); GFR 83.2; POTASSIUM 3.7 mmol/L (3.5-5.1)
[2020-10-05 11:02] LABS: ALBUMIN 3.2 g/dL (3.4-5.0); ALBUMIN/GLOBULIN RATIO 0.7 (1.0-1.7); TOTAL BILIRUBIN 0.3 mg/dL (0.2-1.0); TOTAL PROTEIN 7.9 g/dL (6.4-8.2)
[2020-10-05 13:53] LABS: BILIRUBIN,URINE NEGATIVE (NEG); CLARITY,URINE CLEAR; COLOR,URINE YELLOW; NITRITE,URINE NEGATIVE (NEG); PROTEIN,URINE 100 mg/dL (NEG-TRACE); UROBILINOGEN,URINE 0.2 mg/dL (0.2 mg/dL)
[2020-10-05 14:22] LABS: BACTERIA,URINE 0 /HPF (0-FEW)
== END ==
LOC: ONCLAB 10:10
PROVIDERS: ATTEND Internal Medicine Hematology & Oncology
DX: C18.7 Malignant neoplasm of sigmoid colon (principal)
CPT/HCPCS: 36415; 80053; 81001; 82378; 82570; 84156; 85025; 87086

== ENCOUNTER → 2020-10-19 | Outpatient (CLI) | payer OTHER ==
[2020-07-20 11:37] VITALS: BP 151/93
[2020-10-19 10:44] LABS: BASO # 0.1 x10^3/uL (0.0-0.2); BASO % 1 % (0-3); EOS # 0.1 x10^3/uL (0.0-0.7); EOS % 3 % (0-3); HEMATOCRIT 31.5 % (39.0-53.0); HEMOGLOBIN 10.3 g/dL (13.0-17.5); LYMPH # 0.6 x10^3/uL (1.0-4.8); LYMPH % 17 % (24-48); MEAN CORPUSCULAR HEMOGLOBIN 29 pg (25-35); MEAN CORPUSCULAR HGB CONC 33 g/dL (31-37); MEAN CORPUSCULAR VOLUME 89 fL (79-100); MONO # 0.4 x10^3/uL (0.0-1.1); MONO % 12 % (0-9); NEUT # 2.6 x10^3/uL (1.8-7.7); NEUT % 68 % (31-73); PLATELET COUNT 259 x10^3/uL (140-400); RED BLOOD COUNT 3.54 x10^6/uL (4.30-5.70); RED CELL DISTRIBUTION WIDTH 19.3 % (11.5-14.5); WHITE BLOOD COUNT 3.8 x10^3/uL (4.0-11.0)
[2020-10-19 11:05] LABS: CALCIUM 8.9 mg/dL (8.5-10.1); CREATININE 1.1 mg/dL (0.7-1.3); GFR 83.2; POTASSIUM 3.9 mmol/L (3.5-5.1)
[2020-10-19 11:09] LABS: ALBUMIN 3.1 g/dL (3.4-5.0); ALBUMIN/GLOBULIN RATIO 0.7 (1.0-1.7); TOTAL BILIRUBIN 0.3 mg/dL (0.2-1.0); TOTAL PROTEIN 7.6 g/dL (6.4-8.2)
[2020-10-19 11:32] LABS: BILIRUBIN,URINE NEGATIVE (NEG); CLARITY,URINE CLEAR; COLOR,URINE YELLOW; NITRITE,URINE NEGATIVE (NEG); PROTEIN,URINE 30 mg/dL (NEG-TRACE); UROBILINOGEN,URINE 0.2 mg/dL (0.2 mg/dL)
[2020-10-19 11:36] LABS: CREATININE,RANDOM URINE 66.7 mg/dL (Not Establ.)
[2020-10-19 11:52] LABS: BACTERIA,URINE 0 /HPF (0-FEW)
== END ==
LOC: ONCLAB 10:15
PROVIDERS: ATTEND Internal Medicine Hematology & Oncology
DX: C18.7 Malignant neoplasm of sigmoid colon (principal)
CPT/HCPCS: 36415; 80053; 81001; 82378; 82570; 84156; 85025; 87086

== ENCOUNTER → 2020-10-29 | Outpatient (CLI) | payer OTHER ==
[2020-07-20 11:37] VITALS: BP 151/93
[~2020-10-29] MED LIST changes: +HEPARIN PF 500 UNIT/5 ML DISP.SYRIN. IVP ONE; +IOHEXOL 240 MG/ML 50ML VIAL. PO ONE; +IOHEXOL 300 MG/ML 100ML VIAL. IV ONE
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
== END ==
LOC: CT 09:24
PROVIDERS: ATTEND Internal Medicine Hematology & Oncology
DX: C18.7 Malignant neoplasm of sigmoid colon (principal); C78.7 Secondary malignant neoplasm of liver and intrahepatic bile duct; R91.1 Solitary pulmonary nodule
CPT/HCPCS: 71260; 74177; Q9966; Q9967

== ENCOUNTER → 2020-11-02 | Outpatient (CLI) | payer OTHER ==
[2020-07-20 11:37] VITALS: BP 151/93
[~2020-11-02] MED LIST changes: -HEPARIN PF 500 UNIT/5 ML DISP.SYRIN. IVP ONE; -IOHEXOL 240 MG/ML 50ML VIAL. PO ONE; -IOHEXOL 300 MG/ML 100ML VIAL. IV ONE
[2020-11-02 09:28] LABS: BASO % 1 % (0-3); EOS # 0.1 x10^3/uL (0.0-0.7); EOS % 4 % (0-3); HEMATOCRIT 31.6 % (39.0-53.0); HEMOGLOBIN 10.2 g/dL (13.0-17.5); LYMPH # 0.7 x10^3/uL (1.0-4.8); LYMPH % 20 % (24-48); MEAN CORPUSCULAR HEMOGLOBIN 29 pg (25-35); MEAN CORPUSCULAR HGB CONC 32 g/dL (31-37); MEAN CORPUSCULAR VOLUME 89 fL (79-100); MONO # 0.5 x10^3/uL (0.0-1.1); MONO % 15 % (0-9); NEUT # 2.2 x10^3/uL (1.8-7.7); NEUT % 60 % (31-73); PLATELET COUNT 197 x10^3/uL (140-400); RED BLOOD COUNT 3.54 x10^6/uL (4.30-5.70); RED CELL DISTRIBUTION WIDTH 20.2 % (11.5-14.5); WHITE BLOOD COUNT 3.6 x10^3/uL (4.0-11.0)
[2020-11-02 09:34] LABS: CREATININE,RANDOM URINE 78.2 mg/dL (Not Establ.)
[2020-11-02 09:43] LABS: CALCIUM 8.7 mg/dL (8.5-10.1); CREATININE 1.2 mg/dL (0.7-1.3); GFR 75.2; POTASSIUM 3.3 mmol/L (3.5-5.1)
[2020-11-02 09:50] LABS: ALBUMIN 3.3 g/dL (3.4-5.0); ALBUMIN/GLOBULIN RATIO 0.8 (1.0-1.7); TOTAL BILIRUBIN 0.4 mg/dL (0.2-1.0); TOTAL PROTEIN 7.3 g/dL (6.4-8.2)
[2020-11-02 10:50] LABS: PLT ESTIMATE ADEQUATE (ADEQUATE); POIKILOCYTOSIS SLIGHT
== END ==
LOC: ONCLAB 08:46
PROVIDERS: ATTEND Internal Medicine Hematology & Oncology
DX: C18.7 Malignant neoplasm of sigmoid colon (principal)
CPT/HCPCS: 36415; 80053; 82378; 82570; 84156; 85025

== ENCOUNTER → 2020-11-16 | Outpatient (CLI) | payer OTHER ==
[2020-07-20 11:37] VITALS: BP 151/93
[2020-11-16 09:26] LABS: BASO % 1 % (0-3); EOS # 0.1 x10^3/uL (0.0-0.7); EOS % 4 % (0-3); HEMATOCRIT 33.3 % (39.0-53.0); HEMOGLOBIN 10.9 g/dL (13.0-17.5); LYMPH # 0.5 x10^3/uL (1.0-4.8); LYMPH % 16 % (24-48); MEAN CORPUSCULAR HEMOGLOBIN 30 pg (25-35); MEAN CORPUSCULAR HGB CONC 33 g/dL (31-37); MEAN CORPUSCULAR VOLUME 91 fL (79-100); MONO # 0.4 x10^3/uL (0.0-1.1); MONO % 13 % (0-9); NEUT # 2.1 x10^3/uL (1.8-7.7); NEUT % 66 % (31-73); PLATELET COUNT 173 x10^3/uL (140-400); RED BLOOD COUNT 3.66 x10^6/uL (4.30-5.70); RED CELL DISTRIBUTION WIDTH 20.8 % (11.5-14.5); WHITE BLOOD COUNT 3.2 x10^3/uL (4.0-11.0)
[2020-11-16 09:47] LABS: CALCIUM 8.7 mg/dL (8.5-10.1); CREATININE 1.2 mg/dL (0.7-1.3); GFR 75.2; POTASSIUM 3.5 mmol/L (3.5-5.1)
[2020-11-16 09:56] LABS: ALBUMIN 3.2 g/dL (3.4-5.0); ALBUMIN/GLOBULIN RATIO 0.7 (1.0-1.7); TOTAL BILIRUBIN 0.3 mg/dL (0.2-1.0); TOTAL PROTEIN 7.6 g/dL (6.4-8.2)
[2020-11-16 10:20] LABS: CREATININE,RANDOM URINE 83.3 mg/dL (Not Establ.)
[2020-11-16 14:25] LABS: ANISOCYTOSIS MOD; PLT ESTIMATE ADEQUATE (ADEQUATE)
== END ==
LOC: ONCLAB 09:00
PROVIDERS: ATTEND Internal Medicine Hematology & Oncology
DX: C18.7 Malignant neoplasm of sigmoid colon (principal)
CPT/HCPCS: 36415; 80053; 82378; 82570; 84156; 85025

== ENCOUNTER → 2020-11-30 | Outpatient (CLI) | payer OTHER ==
[2020-07-20 11:37] VITALS: BP 151/93
[2020-11-30 10:05] LABS: BASO % 1 % (0-3); EOS # 0.2 x10^3/uL (0.0-0.7); EOS % 5 % (0-3); HEMATOCRIT 35.3 % (39.0-53.0); HEMOGLOBIN 11.5 g/dL (13.0-17.5); LYMPH # 0.7 x10^3/uL (1.0-4.8); LYMPH % 22 % (24-48); MEAN CORPUSCULAR HEMOGLOBIN 30 pg (25-35); MEAN CORPUSCULAR HGB CONC 33 g/dL (31-37); MEAN CORPUSCULAR VOLUME 91 fL (79-100); MONO # 0.4 x10^3/uL (0.0-1.1); MONO % 14 % (0-9); NEUT # 1.9 x10^3/uL (1.8-7.7); NEUT % 58 % (31-73); PLATELET COUNT 197 x10^3/uL (140-400); RED BLOOD COUNT 3.89 x10^6/uL (4.30-5.70); WHITE BLOOD COUNT 3.2 x10^3/uL (4.0-11.0)
[2020-11-30 10:28] LABS: CREATININE,RANDOM URINE 52.9 mg/dL (Not Establ.)
[2020-11-30 10:31] LABS: CALCIUM 8.9 mg/dL (8.5-10.1); CREATININE 1.2 mg/dL (0.7-1.3); GFR 75.2; POTASSIUM 3.5 mmol/L (3.5-5.1)
[2020-11-30 10:34] LABS: ALBUMIN 3.5 g/dL (3.4-5.0); ALBUMIN/GLOBULIN RATIO 0.9 (1.0-1.7); TOTAL BILIRUBIN 0.4 mg/dL (0.2-1.0); TOTAL PROTEIN 7.6 g/dL (6.4-8.2)
== END ==
LOC: ONCLAB 09:16
PROVIDERS: ATTEND Physician Assistant
DX: C18.7 Malignant neoplasm of sigmoid colon (principal)
CPT/HCPCS: 36415; 80053; 82378; 82570; 84156; 85025

== ENCOUNTER → 2020-12-13 | Outpatient (CLI) | payer OTHER ==
[2020-07-20 11:37] VITALS: BP 151/93
[2020-12-13 09:34] LABS: CREATININE,RANDOM URINE 82.9 mg/dL (Not Establ.)
[2020-12-13 09:38] LABS: CALCIUM 8.7 mg/dL (8.5-10.1); CREATININE 1.3 mg/dL (0.7-1.3); GFR 68.6; POTASSIUM 3.6 mmol/L (3.5-5.1)
[2020-12-13 09:44] LABS: ALBUMIN 3.4 g/dL (3.4-5.0); ALBUMIN/GLOBULIN RATIO 0.8 (1.0-1.7); TOTAL BILIRUBIN 0.4 mg/dL (0.2-1.0); TOTAL PROTEIN 7.5 g/dL (6.4-8.2)
[2020-12-13 10:02] LABS: BASO % 1 % (0-3); EOS # 0.2 x10^3/uL (0.0-0.7); EOS % 5 % (0-3); HEMATOCRIT 34.6 % (39.0-53.0); HEMOGLOBIN 11.2 g/dL (13.0-17.5); LYMPH # 0.8 x10^3/uL (1.0-4.8); LYMPH % 25 % (24-48); MEAN CORPUSCULAR HEMOGLOBIN 30 pg (25-35); MEAN CORPUSCULAR HGB CONC 32 g/dL (31-37); MEAN CORPUSCULAR VOLUME 92 fL (79-100); MONO # 0.6 x10^3/uL (0.0-1.1); MONO % 18 % (0-9); NEUT # 1.6 x10^3/uL (1.8-7.7); NEUT % 52 % (31-73); PLATELET COUNT 159 x10^3/uL (140-400); RED BLOOD COUNT 3.77 x10^6/uL (4.30-5.70); RED CELL DISTRIBUTION WIDTH 20.6 % (11.5-14.5); WHITE BLOOD COUNT 3.2 x10^3/uL (4.0-11.0)
[2020-12-13 11:31] LABS: ANISOCYTOSIS SLIGHT; PLT ESTIMATE ADEQUATE (ADEQUATE)
== END ==
LOC: ONCLAB 09:05
PROVIDERS: ATTEND Physician Assistant
DX: C18.7 Malignant neoplasm of sigmoid colon (principal)
CPT/HCPCS: 36415; 80053; 82378; 82570; 84156; 85025

== ENCOUNTER → 2020-12-28 | Outpatient (CLI) | payer OTHER ==
[2020-07-20 11:37] VITALS: BP 151/93
[2020-12-28 10:00] LABS: BASO % 1 % (0-3); EOS # 0.2 x10^3/uL (0.0-0.7); EOS % 6 % (0-3); HEMATOCRIT 34.8 % (39.0-53.0); HEMOGLOBIN 11.5 g/dL (13.0-17.5); LYMPH # 0.7 x10^3/uL (1.0-4.8); LYMPH % 23 % (24-48); MEAN CORPUSCULAR HEMOGLOBIN 31 pg (25-35); MEAN CORPUSCULAR HGB CONC 33 g/dL (31-37); MEAN CORPUSCULAR VOLUME 93 fL (79-100); MONO # 0.3 x10^3/uL (0.0-1.1); MONO % 10 % (0-9); NEUT # 1.7 x10^3/uL (1.8-7.7); NEUT % 60 % (31-73); PLATELET COUNT 173 x10^3/uL (140-400); RED BLOOD COUNT 3.74 x10^6/uL (4.30-5.70); WHITE BLOOD COUNT 2.9 x10^3/uL (4.0-11.0)
[2020-12-28 10:16] LABS: CALCIUM 9.1 mg/dL (8.5-10.1); CREATININE 1.3 mg/dL (0.7-1.3); GFR 68.6; POTASSIUM 3.4 mmol/L (3.5-5.1)
[2020-12-28 10:18] LABS: CREATININE,RANDOM URINE 74.4 mg/dL (Not Establ.)
[2020-12-28 10:24] LABS: ALBUMIN 3.3 g/dL (3.4-5.0); ALBUMIN/GLOBULIN RATIO 0.8 (1.0-1.7); TOTAL BILIRUBIN 0.3 mg/dL (0.2-1.0); TOTAL PROTEIN 7.5 g/dL (6.4-8.2)
[2020-12-28 11:20] LABS: PLT ESTIMATE ADEQUATE (ADEQUATE)
[2020-12-28 11:21] LABS: ANISOCYTOSIS MOD
== END ==
LOC: ONCLAB 08:00
PROVIDERS: ATTEND Internal Medicine Hematology & Oncology
DX: C18.7 Malignant neoplasm of sigmoid colon (principal); C78.7 Secondary malignant neoplasm of liver and intrahepatic bile duct; C78.02 Secondary malignant neoplasm of left lung
CPT/HCPCS: 36415; 80053; 82570; 84156; 85025

== ENCOUNTER → 2021-01-10 | Outpatient (CLI) | payer OTHER ==
[2020-07-20 11:37] VITALS: BP 151/93
[2021-01-10 11:36] LABS: CREATININE,RANDOM URINE 133.3 mg/dL (Not Establ.)
[2021-01-10 11:41] LABS: BASO % 1 % (0-3); EOS # 0.2 x10^3/uL (0.0-0.7); EOS % 4 % (0-3); HEMATOCRIT 35.3 % (39.0-53.0); HEMOGLOBIN 11.7 g/dL (13.0-17.5); LYMPH # 0.8 x10^3/uL (1.0-4.8); LYMPH % 23 % (24-48); MEAN CORPUSCULAR HEMOGLOBIN 31 pg (25-35); MEAN CORPUSCULAR HGB CONC 33 g/dL (31-37); MEAN CORPUSCULAR VOLUME 93 fL (79-100); MONO # 0.5 x10^3/uL (0.0-1.1); MONO % 13 % (0-9); NEUT # 2.1 x10^3/uL (1.8-7.7); NEUT % 58 % (31-73); PLATELET COUNT 172 x10^3/uL (140-400); RED BLOOD COUNT 3.78 x10^6/uL (4.30-5.70); RED CELL DISTRIBUTION WIDTH 20.5 % (11.5-14.5); WHITE BLOOD COUNT 3.6 x10^3/uL (4.0-11.0)
[2021-01-10 11:49] LABS: CALCIUM 8.9 mg/dL (8.5-10.1); CREATININE 1.5 mg/dL (0.7-1.3); GFR 58.2; POTASSIUM 3.6 mmol/L (3.5-5.1)
[2021-01-10 11:57] LABS: ALBUMIN 3.4 g/dL (3.4-5.0); ALBUMIN/GLOBULIN RATIO 0.8 (1.0-1.7); TOTAL BILIRUBIN 0.4 mg/dL (0.2-1.0); TOTAL PROTEIN 7.6 g/dL (6.4-8.2)
[2021-01-10 13:00] LABS: PLT ESTIMATE ADEQUATE (ADEQUATE)
[2021-01-10 13:01] LABS: ANISOCYTOSIS MOD; POLYCHROMASIA SLIGHT
== END ==
LOC: ONCLAB 10:09
PROVIDERS: ATTEND Internal Medicine Hematology & Oncology
DX: C18.7 Malignant neoplasm of sigmoid colon (principal)
CPT/HCPCS: 36415; 80053; 82378; 82570; 84156; 85025

== ENCOUNTER → 2021-01-24 | Outpatient (CLI) | payer OTHER ==
[2020-07-20 11:37] VITALS: BP 151/93
[2021-01-24 10:35] LABS: BASO % 1 % (0-3); EOS # 0.2 x10^3/uL (0.0-0.7); EOS % 5 % (0-3); HEMATOCRIT 34.5 % (39.0-53.0); HEMOGLOBIN 11.4 g/dL (13.0-17.5); LYMPH # 0.9 x10^3/uL (1.0-4.8); LYMPH % 25 % (24-48); MEAN CORPUSCULAR HEMOGLOBIN 31 pg (25-35); MEAN CORPUSCULAR HGB CONC 33 g/dL (31-37); MEAN CORPUSCULAR VOLUME 94 fL (79-100); MONO # 0.5 x10^3/uL (0.0-1.1); MONO % 15 % (0-9); NEUT % 54 % (31-73); PLATELET COUNT 175 x10^3/uL (140-400); RED BLOOD COUNT 3.69 x10^6/uL (4.30-5.70); RED CELL DISTRIBUTION WIDTH 19.6 % (11.5-14.5); WHITE BLOOD COUNT 3.6 x10^3/uL (4.0-11.0)
[2021-01-24 10:48] LABS: CALCIUM 8.8 mg/dL (8.5-10.1); CREATININE 1.3 mg/dL (0.7-1.3); GFR 68.6; POTASSIUM 3.4 mmol/L (3.5-5.1)
[2021-01-24 10:54] LABS: ALBUMIN 3.5 g/dL (3.4-5.0); ALBUMIN/GLOBULIN RATIO 0.9 (1.0-1.7); TOTAL BILIRUBIN 0.5 mg/dL (0.2-1.0); TOTAL PROTEIN 7.6 g/dL (6.4-8.2)
[2021-01-24 12:12] LABS: CREATININE,RANDOM URINE 80.8 mg/dL (Not Establ.)
== END ==
LOC: ONCLAB 09:17
PROVIDERS: ATTEND Internal Medicine Hematology & Oncology
DX: C18.7 Malignant neoplasm of sigmoid colon (principal)
CPT/HCPCS: 36415; 80053; 82378; 82570; 84156; 85025

== ENCOUNTER → 2021-02-07 | Outpatient (CLI) | payer OTHER ==
[2020-07-20 11:37] VITALS: BP 151/93
[2021-02-07 11:48] LABS: BASO % 1 % (0-3); EOS # 0.1 x10^3/uL (0.0-0.7); EOS % 2 % (0-3); HEMATOCRIT 34.8 % (39.0-53.0); HEMOGLOBIN 11.6 g/dL (13.0-17.5); LYMPH # 0.7 x10^3/uL (1.0-4.8); LYMPH % 18 % (24-48); MEAN CORPUSCULAR HEMOGLOBIN 31 pg (25-35); MEAN CORPUSCULAR HGB CONC 33 g/dL (31-37); MEAN CORPUSCULAR VOLUME 94 fL (79-100); MONO # 0.4 x10^3/uL (0.0-1.1); MONO % 11 % (0-9); NEUT # 2.6 x10^3/uL (1.8-7.7); NEUT % 68 % (31-73); PLATELET COUNT 153 x10^3/uL (140-400); RED CELL DISTRIBUTION WIDTH 18.9 % (11.5-14.5); WHITE BLOOD COUNT 3.9 x10^3/uL (4.0-11.0)
[2021-02-07 12:01] LABS: CREATININE 1.3 mg/dL (0.7-1.3); GFR 68.6; POTASSIUM 3.3 mmol/L (3.5-5.1)
[2021-02-07 12:07] LABS: ALBUMIN 3.2 g/dL (3.4-5.0); ALBUMIN/GLOBULIN RATIO 0.8 (1.0-1.7); TOTAL BILIRUBIN 0.5 mg/dL (0.2-1.0); TOTAL PROTEIN 7.4 g/dL (6.4-8.2)
== END ==
LOC: ONCLAB 11:34
PROVIDERS: ATTEND Internal Medicine Hematology & Oncology
DX: C18.7 Malignant neoplasm of sigmoid colon (principal)
CPT/HCPCS: 36415; 80053; 82378; 85025

== ENCOUNTER → 2021-02-07 | Outpatient (CLI) | payer OTHER ==
[2020-07-20 11:37] VITALS: BP 151/93
[~2021-02-07] MED LIST changes: +CONTRAST GIVEN. MC PRN; +HEPARIN PF 500 UNIT/5 ML DISP.SYRIN. IVP ONE; +IOHEXOL 240 MG/ML 50ML VIAL. PO ONE; +IOHEXOL 300 MG/ML 100ML VIAL. IV ONE
--- NOTE | 2021-02-07 16:41 | RAD ---
EXAM: Chest, abdomen and pelvis CT with intravenous contrast. HISTORY: Colon cancer restaging. TECHNIQUE: Computed tomographic images of the chest, abdomen and pelvis were obtained following the a dministration of intravenous contrast. Multiplanar reformatting was performed. *One or more of the following individualized dose reduction techniques were utilized for this examina tion: 1. Automated exposure control. 2. Adjustment of the mA and/or kV according to patient size. 3. Use of iterative reconstruction technique. COMPARISON: 10/29/2020 and 07/07/2020. FINDINGS: Chest: The heart is normal in size. There is calcified atherosclerotic plaque involving the coronary arteries. There is a right chest wall port catheter in expected position. There is no media stinal or hilar lymphadenopathy. There is no pneumothorax or pleural effusion. There calcifications w ith adjacent scarring within the lateral left upper lobe. There is biapical pleural parenchymal scarr ing. There is a new 2 mm nodule within the anterior right lower lobe. There is an increased 6 mm nodu le within the right middle lobe, previously measuring 3 mm. There is an increased 6 mm nodule within the posterior left lower lobe, previously measuring 3 mm. There is a new 3 mm nodule within the anter ior left upper lobe. There is a new 2 mm nodule within the posterior right upper lobe. There is instr umented fusion involving the cervical spine, not formally assessed on this exam. There is no acute or suspicious osseous lesion. There is mild emphysema. Abdomen and pelvis: There is diffuse hepatic metastatic disease. There are a few lesions which are renae btly decreased in size compared to the prior exam. There are additional lesions which are stable in a ppearance. The gallbladder is unremarkable. There are stable metallic clips are fiducials within the chester hepatis. The pancreas, spleen and adrenal glands are unremarkable. There is left renal atrophy and a left nephroureteral stent. There are small simple appearing renal cysts. Follow up is not routi dionna performed for simple cysts. There is a left ventral abdominal wall colostomy there is no evidence of bowel obstruction or bowel w all thickening. The aorta is normal in caliber. There is aortic atherosclerosis. No pathologically en larged lymph node or soft tissue implant is seen. The bladder is decompressed. There is no acute or s uspicious osseous finding. IMPRESSION: 1. New and increasing bilateral pulmonary nodules measuring up to 6 mm, consistent with progressive m etastatic disease. 2. Diffuse hepatic metastatic disease, stable to minimally decreased compared to the prior study. Thi s favors next interval therapy response. 3. Findings consistent with partial colonic resection and left ventral abdominal wall colostomy forma tion. There is no convincing residual or recurrent colonic malignancy, metastatic lymphadenopathy or soft tissue implant. 4. Left renal atrophy and simple right renal cyst. There is a left nephroureteral stent in expected p osition. Electronically signed by: Yesenia Moreno MD (02/07/2021 4:38 PM) [id number]
== END ==
LOC: CT 09:58
PROVIDERS: ATTEND Internal Medicine Hematology & Oncology
DX: C78.7 Secondary malignant neoplasm of liver and intrahepatic bile duct (principal); C18.7 Malignant neoplasm of sigmoid colon; R91.8 Other nonspecific abnormal finding of lung field; N28.1 Cyst of kidney, acquired; I25.10 Atherosclerotic heart disease of native coronary artery without angina pectoris; J98.4 Other disorders of lung; N26.1 Atrophy of kidney (terminal); I70.0 Atherosclerosis of aorta; Z93.3 Colostomy status
CPT/HCPCS: 71260; 74177; Q9966; Q9967

== ENCOUNTER → 2021-02-08 | Outpatient (CLI) | payer OTHER ==
[2020-07-20 11:37] VITALS: BP 151/93
[~2021-02-08] MED LIST changes: -CONTRAST GIVEN. MC PRN; -HEPARIN PF 500 UNIT/5 ML DISP.SYRIN. IVP ONE; -IOHEXOL 240 MG/ML 50ML VIAL. PO ONE; -IOHEXOL 300 MG/ML 100ML VIAL. IV ONE
[2021-02-08 11:49] LABS: CREATININE,RANDOM URINE < 13.0 mg/dL (Not Establ.)
== END ==
LOC: ONCLAB 09:30
PROVIDERS: ATTEND Internal Medicine Hematology & Oncology
DX: C18.7 Malignant neoplasm of sigmoid colon (principal)
CPT/HCPCS: 82570; 84156

== ENCOUNTER → 2021-02-21 | Outpatient (CLI) | payer OTHER ==
[2020-07-20 11:37] VITALS: BP 151/93
[2021-02-21 10:15] LABS: CREATININE,RANDOM URINE 189.1 mg/dL (Not Establ.)
[2021-02-21 10:19] LABS: CALCIUM 9.1 mg/dL (8.5-10.1); CREATININE 1.4 mg/dL (0.7-1.3); POTASSIUM 3.3 mmol/L (3.5-5.1)
[2021-02-21 10:25] LABS: ALBUMIN 3.3 g/dL (3.4-5.0); ALBUMIN/GLOBULIN RATIO 0.7 (1.0-1.7); TOTAL BILIRUBIN 0.5 mg/dL (0.2-1.0); TOTAL PROTEIN 7.8 g/dL (6.4-8.2)
[2021-02-21 10:26] LABS: BASO % 1 % (0-3); EOS # 0.2 x10^3/uL (0.0-0.7); EOS % 4 % (0-3); HEMATOCRIT 34.7 % (39.0-53.0); HEMOGLOBIN 11.4 g/dL (13.0-17.5); LYMPH # 0.8 x10^3/uL (1.0-4.8); LYMPH % 19 % (24-48); MEAN CORPUSCULAR HEMOGLOBIN 31 pg (25-35); MEAN CORPUSCULAR HGB CONC 33 g/dL (31-37); MEAN CORPUSCULAR VOLUME 94 fL (79-100); MONO # 0.8 x10^3/uL (0.0-1.1); MONO % 18 % (0-9); NEUT # 2.5 x10^3/uL (1.8-7.7); NEUT % 58 % (31-73); PLATELET COUNT 168 x10^3/uL (140-400); RED BLOOD COUNT 3.68 x10^6/uL (4.30-5.70); RED CELL DISTRIBUTION WIDTH 18.8 % (11.5-14.5); WHITE BLOOD COUNT 4.3 x10^3/uL (4.0-11.0)
[2021-02-21 12:31] LABS: % BASOS 2 % (0-3); % LYMPHS 30 % (24-48); % MONOS 10 % (0-10); % SEGS 58 % (35-66); ANISOCYTOSIS SLIGHT; PLT ESTIMATE ADEQUATE (ADEQUATE)
== END ==
LOC: ONCLAB 09:40
PROVIDERS: ATTEND Physician Assistant
DX: C18.7 Malignant neoplasm of sigmoid colon (principal)
CPT/HCPCS: 36415; 80053; 82570; 84156; 85007; 85025

== ENCOUNTER → 2021-03-07 | Outpatient (CLI) | payer OTHER ==
[2020-07-20 11:37] VITALS: BP 151/93
[2021-03-07 09:36] LABS: BASO % 1 % (0-3); EOS # 0.2 x10^3/uL (0.0-0.7); EOS % 6 % (0-3); HEMATOCRIT 34.3 % (39.0-53.0); HEMOGLOBIN 11.6 g/dL (13.0-17.5); LYMPH # 0.8 x10^3/uL (1.0-4.8); LYMPH % 21 % (24-48); MEAN CORPUSCULAR HEMOGLOBIN 32 pg (25-35); MEAN CORPUSCULAR HGB CONC 34 g/dL (31-37); MEAN CORPUSCULAR VOLUME 94 fL (79-100); MONO # 0.6 x10^3/uL (0.0-1.1); MONO % 16 % (0-9); NEUT # 2.3 x10^3/uL (1.8-7.7); NEUT % 57 % (31-73); PLATELET COUNT 179 x10^3/uL (140-400); RED BLOOD COUNT 3.67 x10^6/uL (4.30-5.70); RED CELL DISTRIBUTION WIDTH 18.5 % (11.5-14.5)
[2021-03-07 09:44] LABS: CREATININE,RANDOM URINE 93.2 mg/dL (Not Establ.)
[2021-03-07 09:56] LABS: CALCIUM 8.6 mg/dL (8.5-10.1); CREATININE 1.3 mg/dL (0.7-1.3); GFR 68.6; POTASSIUM 3.4 mmol/L (3.5-5.1)
[2021-03-07 10:03] LABS: ALBUMIN/GLOBULIN RATIO 0.6 (1.0-1.7); TOTAL BILIRUBIN 0.4 mg/dL (0.2-1.0); TOTAL PROTEIN 7.7 g/dL (6.4-8.2)
== END ==
LOC: ONCLAB 09:05
PROVIDERS: ATTEND Internal Medicine Hematology & Oncology
DX: C18.7 Malignant neoplasm of sigmoid colon (principal)
CPT/HCPCS: 36415; 80053; 82378; 82570; 84156; 85025

== ENCOUNTER → 2021-03-21 | Outpatient (CLI) | payer OTHER ==
[2020-07-20 11:37] VITALS: BP 151/93
[2021-03-21 08:53] LABS: BASO # 0.1 x10^3/uL (0.0-0.2); BASO % 1 % (0-3); EOS # 0.2 x10^3/uL (0.0-0.7); EOS % 5 % (0-3); HEMATOCRIT 35.1 % (39.0-53.0); HEMOGLOBIN 11.6 g/dL (13.0-17.5); LYMPH # 0.9 x10^3/uL (1.0-4.8); LYMPH % 23 % (24-48); MEAN CORPUSCULAR HEMOGLOBIN 31 pg (25-35); MEAN CORPUSCULAR HGB CONC 33 g/dL (31-37); MEAN CORPUSCULAR VOLUME 93 fL (79-100); MONO # 0.7 x10^3/uL (0.0-1.1); MONO % 18 % (0-9); NEUT # 2.2 x10^3/uL (1.8-7.7); NEUT % 54 % (31-73); PLATELET COUNT 210 x10^3/uL (140-400); RED BLOOD COUNT 3.76 x10^6/uL (4.30-5.70); RED CELL DISTRIBUTION WIDTH 18.7 % (11.5-14.5); WHITE BLOOD COUNT 4.1 x10^3/uL (4.0-11.0)
[2021-03-21 08:58] LABS: CALCIUM 9.3 mg/dL (8.5-10.1); CREATININE 1.4 mg/dL (0.7-1.3); POTASSIUM 3.4 mmol/L (3.5-5.1)
[2021-03-21 09:09] LABS: ALBUMIN 3.1 g/dL (3.4-5.0); ALBUMIN/GLOBULIN RATIO 0.6 (1.0-1.7); TOTAL BILIRUBIN 0.6 mg/dL (0.2-1.0); TOTAL PROTEIN 8.1 g/dL (6.4-8.2)
== END ==
LOC: ONCLAB 08:30
PROVIDERS: ATTEND Internal Medicine Hematology & Oncology
DX: C18.7 Malignant neoplasm of sigmoid colon (principal)
CPT/HCPCS: 36415; 80053; 82378; 85025

== ENCOUNTER → 2021-03-21 | Outpatient (CLI) | payer OTHER ==
[2020-07-20 11:37] VITALS: BP 151/93
[~2021-03-21] MED LIST changes: +CONTRAST GIVEN. MC PRN; +HEPARIN PF 500 UNIT/5 ML DISP.SYRIN. IVP ONE; +IOHEXOL 240 MG/ML 50ML VIAL. PO ONE; +IOHEXOL 300 MG/ML 100ML VIAL. IV ONE; +POTA-121 PO; -POTA20TA4 PO
--- NOTE | 2021-03-21 10:48 | RAD ---
EXAMINATION: CT chest, abdomen and pelvis with IV contrast. INDICATION:60 years, Male, colon cancer, metastasis to the liver. Follow-up examination. TECHNIQUE: Axial CT images of the chest, abdomen and pelvis were obtained. Coronal and sagittal refor matted performed. COMPARISON: 02/07/2021. Exposure: One or more of the following individualized dose reduction techniques were utilized for thi s examination: 1. Automated exposure control 2. Adjustment of the mA and/or kV according to patient size 3. Use of iterative reconstruction technique. FINDINGS: CHEST: Visualized thyroid and esophagus are unremarkable. No lymphadenopathy in the chest by size criteria. Normal cardiac size with no pericardial effusion. Normal caliber thoracic aorta and pulmonary arterie s. Right Mediport catheter with the tip terminates in distal SVC. Stable to increasing size of right middle lobe pulmonary nodule measures 8mm, previously measures 7 m m. Stable to minimally increasing size of pleural-based left lower lobe pulmonary nodule measures 7 m m, previously 6 mm. Unchanged 3 mm pulmonary nodule in the left upper lobe. Biapical pleural parenchy mal scarring. Calcified granuloma in the left upper lobe. No focal consolidation, effusion. Mild cent rilobular pulmonary emphysema. Central airways are patent. ABDOMEN/PELVIS: Unchanged size and number of multiple bilobar hepatic metastasis. For example, caudate lobe mass zuleyma ures 5.2 x 3.5 cm. Contracted gallbladder which limits evaluation. No biliary ductal dilation. Unrema rkable spleen and pancreas. No adrenal nodule. Stable metallic clips and fiducial markers within the chester hepatis. Similar left renal atrophy with unchanged left nephroureteral stent. No right hydronephrosis or nephr olithiasis. Unchanged subcentimeter hypodensities in the both renal cortices, too small to characteri ze but favors benign etiology such as cysts. Unremarkable urinary bladder. Changes of partial colonic resection with left abdominal wall colostomy. No evidence of bowel obstruc tion. Normal caliber abdominal aorta. Mesenteric arteries and portal vein are patent. No pneumoperito neum or ascites. No abdominopelvic lymphadenopathy by size criteria. Unremarkable prostate. Unchanged MUSCULOSKELETAL: No suspicious osseous lesion. Anterior hardware fusion in the lower cervical spine. IMPRESSION: 1. Stable to minimally increasing size of right middle and left lower lobe pulmonary nodules, concer sky for worsening metastatic disease. 2. Unchanged bilobar hepatic metastasis. 3. Other chronic/incidental findings, as described above. Electronically signed by: Shamika John MD (03/21/2021 10:46 AM) [facility]
== END ==
LOC: CT 08:33
PROVIDERS: ATTEND Internal Medicine Hematology & Oncology
DX: C78.7 Secondary malignant neoplasm of liver and intrahepatic bile duct (principal); C18.7 Malignant neoplasm of sigmoid colon; R91.8 Other nonspecific abnormal finding of lung field; J43.2 Centrilobular emphysema; J84.10 Pulmonary fibrosis, unspecified; J98.4 Other disorders of lung; N26.1 Atrophy of kidney (terminal)
CPT/HCPCS: 71260; 74177; J1642; Q9966; Q9967

== ENCOUNTER → 2021-03-22 | Outpatient (CLI) | payer OTHER ==
[2020-07-20 11:37] VITALS: BP 151/93
[~2021-03-22] MED LIST changes: -CONTRAST GIVEN. MC PRN; -HEPARIN PF 500 UNIT/5 ML DISP.SYRIN. IVP ONE; -IOHEXOL 240 MG/ML 50ML VIAL. PO ONE; -IOHEXOL 300 MG/ML 100ML VIAL. IV ONE; -POTA-121 PO; +POTA20TA4 PO
[2021-03-22 10:33] LABS: CREATININE,RANDOM URINE 94.1 mg/dL (Not Establ.)
== END ==
LOC: ONCLAB 10:00
PROVIDERS: ATTEND Physician Assistant
DX: C18.7 Malignant neoplasm of sigmoid colon (principal)
CPT/HCPCS: 82570; 84156

== ENCOUNTER → 2021-04-06 | Outpatient (CLI) | payer OTHER ==
[2020-07-20 11:37] VITALS: BP 151/93
[~2021-04-06] MED LIST changes: +POTA-121 PO; -POTA20TA4 PO
[2021-04-06 11:26] LABS: CREATININE,RANDOM URINE 112.4 mg/dL (Not Establ.)
[2021-04-06 11:31] LABS: BASO % 1 % (0-3); EOS # 0.2 x10^3/uL (0.0-0.7); EOS % 5 % (0-3); HEMATOCRIT 33.1 % (39.0-53.0); HEMOGLOBIN 11.2 g/dL (13.0-17.5); LYMPH # 0.8 x10^3/uL (1.0-4.8); LYMPH % 21 % (24-48); MEAN CORPUSCULAR HEMOGLOBIN 31 pg (25-35); MEAN CORPUSCULAR HGB CONC 34 g/dL (31-37); MEAN CORPUSCULAR VOLUME 92 fL (79-100); MONO # 0.7 x10^3/uL (0.0-1.1); MONO % 20 % (0-9); NEUT # 1.9 x10^3/uL (1.8-7.7); NEUT % 54 % (31-73); PLATELET COUNT 201 x10^3/uL (140-400); RED BLOOD COUNT 3.59 x10^6/uL (4.30-5.70); RED CELL DISTRIBUTION WIDTH 18.7 % (11.5-14.5); WHITE BLOOD COUNT 3.6 x10^3/uL (4.0-11.0)
[2021-04-06 11:42] LABS: ALBUMIN/GLOBULIN RATIO 0.6 (1.0-1.7); CALCIUM 9.3 mg/dL (8.5-10.1); CREATININE 1.2 mg/dL (0.7-1.3); GFR 75.2; TOTAL BILIRUBIN 0.6 mg/dL (0.2-1.0)
[2021-04-06 12:42] LABS: % BANDS 2 % (0-9); % BASOS 1 % (0-3); % EOS 1 % (0-5); % LYMPHS 29 % (24-48); % MONOS 22 % (0-10); % SEGS 45 % (35-66); ANISOCYTOSIS PRESENT; PLT ESTIMATE ADEQUATE (ADEQUATE)
== END ==
LOC: ONCLAB 10:34
PROVIDERS: ATTEND Internal Medicine Hematology & Oncology
DX: C18.7 Malignant neoplasm of sigmoid colon (principal)
CPT/HCPCS: 36415; 80053; 82378; 82570; 84156; 85007; 85025

== ENCOUNTER → 2021-04-19 | Outpatient (CLI) | payer OTHER ==
[2020-07-20 11:37] VITALS: BP 151/93
[2021-04-19 14:15] LABS: BASO # 0.1 x10^3/uL (0.0-0.2); BASO % 1 % (0-3); EOS # 0.2 x10^3/uL (0.0-0.7); EOS % 4 % (0-3); HEMATOCRIT 34.1 % (39.0-53.0); HEMOGLOBIN 11.3 g/dL (13.0-17.5); LYMPH # 0.9 x10^3/uL (1.0-4.8); LYMPH % 19 % (24-48); MEAN CORPUSCULAR HEMOGLOBIN 31 pg (25-35); MEAN CORPUSCULAR HGB CONC 33 g/dL (31-37); MEAN CORPUSCULAR VOLUME 93 fL (79-100); MONO # 0.7 x10^3/uL (0.0-1.1); MONO % 15 % (0-9); NEUT # 2.7 x10^3/uL (1.8-7.7); NEUT % 61 % (31-73); PLATELET COUNT 229 x10^3/uL (140-400); RED BLOOD COUNT 3.67 x10^6/uL (4.30-5.70); RED CELL DISTRIBUTION WIDTH 19.1 % (11.5-14.5); WHITE BLOOD COUNT 4.5 x10^3/uL (4.0-11.0)
[2021-04-19 14:32] LABS: CALCIUM 9.4 mg/dL (8.5-10.1); CREATININE 1.2 mg/dL (0.7-1.3); GFR 75.2; POTASSIUM 3.3 mmol/L (3.5-5.1)
[2021-04-19 14:38] LABS: ALBUMIN 3.2 g/dL (3.4-5.0); ALBUMIN/GLOBULIN RATIO 0.6 (1.0-1.7); TOTAL BILIRUBIN 0.6 mg/dL (0.2-1.0); TOTAL PROTEIN 8.4 g/dL (6.4-8.2)
[2021-04-19 16:58] LABS: CREATININE,RANDOM URINE 221.4 mg/dL (Not Establ.)
== END ==
LOC: SPEC 13:24
PROVIDERS: ATTEND Physician Assistant
DX: C18.7 Malignant neoplasm of sigmoid colon (principal); N13.39 Other hydronephrosis
CPT/HCPCS: 36415; 80053; 82570; 84156; 85025; 87086

== ENCOUNTER → 2021-05-03 | Outpatient (CLI) | payer OTHER ==
[2020-07-20 11:37] VITALS: BP 151/93
[2021-05-03 13:43] LABS: BASO % 0 % (0-3); EOS % 0 % (0-3); HEMATOCRIT 30.9 % (39.0-53.0); HEMOGLOBIN 10.3 g/dL (13.0-17.5); LYMPH # 0.6 x10^3/uL (1.0-4.8); LYMPH % 8 % (24-48); MEAN CORPUSCULAR HEMOGLOBIN 31 pg (25-35); MEAN CORPUSCULAR HGB CONC 33 g/dL (31-37); MEAN CORPUSCULAR VOLUME 93 fL (79-100); MONO # 0.9 x10^3/uL (0.0-1.1); MONO % 13 % (0-9); NEUT # 5.8 x10^3/uL (1.8-7.7); NEUT % 79 % (31-73); PLATELET COUNT 250 x10^3/uL (140-400); RED BLOOD COUNT 3.33 x10^6/uL (4.30-5.70); RED CELL DISTRIBUTION WIDTH 19.5 % (11.5-14.5); WHITE BLOOD COUNT 7.4 x10^3/uL (4.0-11.0)
[2021-05-03 13:48] LABS: CALCIUM 8.7 mg/dL (8.5-10.1); CREATININE 1.3 mg/dL (0.7-1.3); GFR 68.6; POTASSIUM 3.1 mmol/L (3.5-5.1)
[2021-05-03 13:57] LABS: ALBUMIN 2.9 g/dL (3.4-5.0); ALBUMIN/GLOBULIN RATIO 0.6 (1.0-1.7); TOTAL BILIRUBIN 0.5 mg/dL (0.2-1.0); TOTAL PROTEIN 7.9 g/dL (6.4-8.2)
== END ==
LOC: ONCLAB 13:09
PROVIDERS: ATTEND Internal Medicine Hematology & Oncology
DX: C18.7 Malignant neoplasm of sigmoid colon (principal)
CPT/HCPCS: 36415; 80053; 82378; 82570; 84156; 85025

== ENCOUNTER → 2021-05-06 | Outpatient (CLI) | payer OTHER ==
[2020-07-20 11:37] VITALS: BP 151/93
[2021-05-06 14:03] LABS: BILIRUBIN,URINE NEGATIVE (NEG); CLARITY,URINE CLEAR; NITRITE,URINE NEGATIVE (NEG); PROTEIN,URINE NEGATIVE (NEG-TRACE); UROBILINOGEN,URINE 0.2 mg/dL (0.2 mg/dL)
[2021-05-06 14:32] LABS: COLOR,URINE STRAW; RBC,URINE OCC /HPF (0-2)
[2021-05-06 14:33] LABS: BACTERIA,URINE 0 /HPF (0-FEW)
== END ==
LOC: ONCLAB 13:40
PROVIDERS: ATTEND Internal Medicine Hematology & Oncology
DX: C18.7 Malignant neoplasm of sigmoid colon (principal)
CPT/HCPCS: 81001

== ENCOUNTER → 2021-05-18 | Outpatient (CLI) | payer OTHER ==
[2020-07-20 11:37] VITALS: BP 151/93
[2021-05-18 12:04] LABS: BASO % 1 % (0-3); EOS # 0.1 x10^3/uL (0.0-0.7); EOS % 3 % (0-3); HEMATOCRIT 30.1 % (39.0-53.0); LYMPH # 0.9 x10^3/uL (1.0-4.8); LYMPH % 24 % (24-48); MEAN CORPUSCULAR HEMOGLOBIN 31 pg (25-35); MEAN CORPUSCULAR HGB CONC 33 g/dL (31-37); MEAN CORPUSCULAR VOLUME 92 fL (79-100); MONO # 0.6 x10^3/uL (0.0-1.1); MONO % 16 % (0-9); NEUT # 2.2 x10^3/uL (1.8-7.7); NEUT % 57 % (31-73); PLATELET COUNT 221 x10^3/uL (140-400); RED BLOOD COUNT 3.26 x10^6/uL (4.30-5.70); RED CELL DISTRIBUTION WIDTH 19.2 % (11.5-14.5); WHITE BLOOD COUNT 3.9 x10^3/uL (4.0-11.0)
[2021-05-18 12:13] LABS: CREATININE,RANDOM URINE 122.4 mg/dL (Not Establ.)
[2021-05-18 12:16] LABS: CALCIUM 8.8 mg/dL (8.5-10.1); CREATININE 1.2 mg/dL (0.7-1.3); GFR 75.2; POTASSIUM 3.1 mmol/L (3.5-5.1)
[2021-05-18 12:23] LABS: ALBUMIN 2.7 g/dL (3.4-5.0); ALBUMIN/GLOBULIN RATIO 0.6 (1.0-1.7); TOTAL BILIRUBIN 0.5 mg/dL (0.2-1.0); TOTAL PROTEIN 7.4 g/dL (6.4-8.2)
== END ==
LOC: ONCLAB 11:43
PROVIDERS: ATTEND Internal Medicine Hematology & Oncology
DX: C18.7 Malignant neoplasm of sigmoid colon (principal)
CPT/HCPCS: 36415; 80053; 82378; 82570; 84156; 85025

== ENCOUNTER → 2021-05-24 | Outpatient (CLI) | payer OTHER ==
[2020-07-20 11:37] VITALS: BP 151/93
[~2021-05-24] MED LIST changes: +HEPARIN PF 500 UNIT/5 ML DISP.SYRIN. IVP ONE; +IOHEXOL 240 MG/ML 50ML VIAL. IV ONE; +IOHEXOL 300 MG/ML 100ML VIAL. IV ONE
--- NOTE | 2021-05-24 15:05 | RAD ---
EXAM: Chest, abdomen and pelvis CT with intravenous contrast. HISTORY: Colon cancer. TECHNIQUE: Computed tomographic images of the chest, abdomen and pelvis were obtained following the a dministration of intravenous contrast. Multiplanar reformatting was performed. *One or more of the following individualized dose reduction techniques were utilized for this examina tion: 1. Automated exposure control. 2. Adjustment of the mA and/or kV according to patient size. 3. Use of iterative reconstruction technique. COMPARISON: 09/18/2019. FINDINGS: Chest: The heart is normal in size. The thoracic aorta is normal in caliber. There is a rig ht chest wall port catheter in expected position. No mediastinal or hilar lymphadenopathy is seen. Th ere is no pneumothorax or pleural effusion. There is a cluster of calcified granulomas within the lat eral left upper lobe along the pleural fissure. There is mild biapical pleural parenchymal scarring. There is a 3 mm nodule within the anterior right lower lobe (series 2, image 36). There is a 7 mm nod ule within the inferior lateral right middle lobe (series 2, image 46). There is a 9 mm pleural-based nodule within the posterior left lower lobe (series 2, image 50). There is a 4 mm nodule within the superior left lower lobe (series 2, image 31). There is a 3 mm nodule within the posterior left upper lobe (series 2, image 21). There is a 4 mm nodule within the anterior left upper lobe (series 2, dona ge 18). There is mild emphysema. There is instrumented fusion at the lower cervical levels, not forma lly assessed on this exam. There is no acute osseous finding. Abdomen and pelvis: There is diffuse hepatic metastatic disease. The largest metastasis measures 5.8 cm. The number and size of metastases is not significantly changed compared to the prior study. The g allbladder is unremarkable. There is surgical clips within the chester hepatis. The pancreas, spleen an d adrenal glands are unremarkable. There is left renal atrophy. There is partial colonic resection wi th a left ventral abdominal wall colostomy. There is moderate colonic stool. There are nonspecific ly mph nodes throughout the root of the mesentery. The bladder is unremarkable. The aorta is normal in c aliber. There is degenerative change involving the spine. There is no acute or suspicious osseous fin ding. IMPRESSION: 1. Diffuse hepatic metastatic disease, similar compared to the prior exam. 2. Multiple small bilateral pleural nodules measuring up to 9 mm. The size of several nodules a sligh tly increased compared to the prior exam, consistent with slight progression of metastatic disease. 3. Postoperative changes involving the colon. 4. Stable prominent lymph nodes within the root of the mesentery. No convincing lymphadenopathy or so ft tissue implant is seen. Electronically signed by: Yesenia Moreno MD (05/24/2021 3:03 PM) [id number]
== END ==
LOC: CT 08:08
PROVIDERS: ATTEND Physician Assistant
DX: C78.7 Secondary malignant neoplasm of liver and intrahepatic bile duct (principal); C18.7 Malignant neoplasm of sigmoid colon; R91.8 Other nonspecific abnormal finding of lung field; J84.10 Pulmonary fibrosis, unspecified; J98.4 Other disorders of lung; N26.1 Atrophy of kidney (terminal); Z98.890 Other specified postprocedural states
CPT/HCPCS: 71260; 74177; J1642; Q9966; Q9967

== ENCOUNTER → 2021-05-25 | Outpatient (CLI) | payer OTHER ==
[2020-07-20 11:37] VITALS: BP 151/93
[~2021-05-25] MED LIST changes: -HEPARIN PF 500 UNIT/5 ML DISP.SYRIN. IVP ONE; -IOHEXOL 240 MG/ML 50ML VIAL. IV ONE; -IOHEXOL 300 MG/ML 100ML VIAL. IV ONE
[2021-05-25 11:23] LABS: BASO % 1 % (0-3); EOS # 0.1 x10^3/uL (0.0-0.7); EOS % 4 % (0-3); HEMATOCRIT 30.7 % (39.0-53.0); HEMOGLOBIN 10.2 g/dL (13.0-17.5); LYMPH % 32 % (24-48); MEAN CORPUSCULAR HEMOGLOBIN 31 pg (25-35); MEAN CORPUSCULAR HGB CONC 33 g/dL (31-37); MEAN CORPUSCULAR VOLUME 92 fL (79-100); MONO # 0.7 x10^3/uL (0.0-1.1); MONO % 21 % (0-9); NEUT # 1.4 x10^3/uL (1.8-7.7); NEUT % 43 % (31-73); PLATELET COUNT 251 x10^3/uL (140-400); RED BLOOD COUNT 3.34 x10^6/uL (4.30-5.70); RED CELL DISTRIBUTION WIDTH 19.6 % (11.5-14.5); WHITE BLOOD COUNT 3.3 x10^3/uL (4.0-11.0)
[2021-05-25 11:30] LABS: CALCIUM 8.6 mg/dL (8.5-10.1); CREATININE 1.1 mg/dL (0.7-1.3); GFR 83.2; POTASSIUM 3.7 mmol/L (3.5-5.1)
[2021-05-25 12:39] LABS: CREATININE,RANDOM URINE 111.3 mg/dL (Not Establ.)
== END ==
LOC: ONCLAB 11:01
PROVIDERS: ATTEND Internal Medicine Hematology & Oncology
DX: C18.7 Malignant neoplasm of sigmoid colon (principal)
CPT/HCPCS: 80048; 82570; 84156; 85025; 87493; 87505

== ENCOUNTER → 2021-06-08 | Outpatient (CLI) | payer OTHER ==
[2020-07-20 11:37] VITALS: BP 151/93
[2021-06-08 12:11] LABS: BASO # 0.1 x10^3/uL (0.0-0.2); BASO % 2 % (0-3); EOS # 0.4 x10^3/uL (0.0-0.7); EOS % 6 % (0-3); HEMATOCRIT 31.8 % (39.0-53.0); HEMOGLOBIN 10.5 g/dL (13.0-17.5); LYMPH # 0.9 x10^3/uL (1.0-4.8); LYMPH % 12 % (24-48); MEAN CORPUSCULAR HEMOGLOBIN 30 pg (25-35); MEAN CORPUSCULAR HGB CONC 33 g/dL (31-37); MEAN CORPUSCULAR VOLUME 92 fL (79-100); MONO # 0.9 x10^3/uL (0.0-1.1); MONO % 12 % (0-9); NEUT % 68 % (31-73); PLATELET COUNT 239 x10^3/uL (140-400); RED BLOOD COUNT 3.46 x10^6/uL (4.30-5.70); RED CELL DISTRIBUTION WIDTH 19.5 % (11.5-14.5); WHITE BLOOD COUNT 7.4 x10^3/uL (4.0-11.0)
[2021-06-08 12:17] LABS: CALCIUM 9.3 mg/dL (8.5-10.1); CREATININE 1.3 mg/dL (0.7-1.3); GFR 68.6; POTASSIUM 3.9 mmol/L (3.5-5.1)
[2021-06-08 12:24] LABS: ALBUMIN 3.1 g/dL (3.4-5.0); ALBUMIN/GLOBULIN RATIO 0.6 (1.0-1.7); TOTAL BILIRUBIN 1.5 mg/dL (0.2-1.0); TOTAL PROTEIN 8.4 g/dL (6.4-8.2)
[2021-06-08 13:44] LABS: CREATININE,RANDOM URINE 313.3 mg/dL (Not Establ.)
== END ==
LOC: ONCLAB 11:40
PROVIDERS: ATTEND Physician Assistant
DX: C18.7 Malignant neoplasm of sigmoid colon (principal)
CPT/HCPCS: 36415; 80053; 82570; 84156; 85025

== ENCOUNTER → 2021-06-29 | Outpatient (CLI) | payer OTHER ==
[2020-07-20 11:37] VITALS: BP 151/93
[2021-06-29 11:27] LABS: BASO # 0.1 x10^3/uL (0.0-0.2); BASO % 1 % (0-3); EOS # 0.4 x10^3/uL (0.0-0.7); EOS % 6 % (0-3); HEMATOCRIT 29.2 % (39.0-53.0); HEMOGLOBIN 9.6 g/dL (13.0-17.5); LYMPH # 0.8 x10^3/uL (1.0-4.8); LYMPH % 11 % (24-48); MEAN CORPUSCULAR HEMOGLOBIN 29 pg (25-35); MEAN CORPUSCULAR HGB CONC 33 g/dL (31-37); MEAN CORPUSCULAR VOLUME 90 fL (79-100); MONO # 1.2 x10^3/uL (0.0-1.1); MONO % 17 % (0-9); NEUT # 4.6 x10^3/uL (1.8-7.7); NEUT % 65 % (31-73); PLATELET COUNT 259 x10^3/uL (140-400); RED BLOOD COUNT 3.26 x10^6/uL (4.30-5.70); RED CELL DISTRIBUTION WIDTH 18.1 % (11.5-14.5); WHITE BLOOD COUNT 7.1 x10^3/uL (4.0-11.0)
[2021-06-29 11:33] LABS: CALCIUM 8.6 mg/dL (8.5-10.1); CREATININE 1.2 mg/dL (0.7-1.3); GFR 75.2; POTASSIUM 3.8 mmol/L (3.5-5.1)
[2021-06-29 11:39] LABS: ALBUMIN 2.5 g/dL (3.4-5.0); ALBUMIN/GLOBULIN RATIO 0.5 (1.0-1.7); TOTAL BILIRUBIN 2.7 mg/dL (0.2-1.0)
[2021-06-29 12:06] LABS: CREATININE,RANDOM URINE 149.6 mg/dL (Not Establ.)
== END ==
LOC: ONCLAB 11:02
PROVIDERS: ATTEND Internal Medicine Hematology & Oncology
DX: C18.7 Malignant neoplasm of sigmoid colon (principal)
CPT/HCPCS: 36415; 80053; 82570; 84156; 85025

== ENCOUNTER → 2021-07-01 | Outpatient (CLI) | payer OTHER ==
[2020-07-20 11:37] VITALS: BP 151/93
[~2021-07-01] MED LIST changes: +HEPARIN PF 500 UNIT/5 ML DISP.SYRIN. IVP ONE; +IOHEXOL 240 MG/ML 50ML VIAL. PO ONE; +IOHEXOL 300 MG/ML 100ML VIAL. IV ONE
--- NOTE | 2021-07-04 10:25 | RAD ---
PQRS Compliance Statement: One or more of the following individualized dose reduction techniques were utilized for this examinat ion: 1. Automated exposure control 2. Adjustment of the mA and/or kV according to patient size 3. Use of iterative reconstruction technique CT CHEST+ABD+PELVIS W 07/01/2021 1:37 PM INDICATION: Restaging colon cancer COMPARISON: None ava1ilable TECHNIQUE: Multiple axial CT images of the chest, abdomen and pelvis were obtained after the intraven ous administration of 75 mL Omnipaque 300. Coronal and sagittal reformats are provided. FINDINGS: Right chest wall infusion port catheter is identified at the distal tip terminating at the cavoatrial junction. Cardiac and medicinal structures are stable. No new or enlarging thoracic lymphadenopathy. There is mild biapical pleural-parenchymal scarring. Stable 5 mm solid noncalcified pulmonary nodule in the left upper lobe (series 2, image 15). There is a 10 mm solid noncalcified pulmonary nodule in the posterior left lower lobe abutting the pleura, previously measuring 8 mm (series 2, image 52). W ithin the right middle lobe there is a solid noncalcified pulmonary nodule measuring 0.7 cm, previous ly measuring 0.6 cm and measured in similar dimensions (series 2, image 44). No pleural effusions, pu lmonary vascular congestion or pneumothorax. Lateral segment left hepatic lobe hepatic lesion measure s 4.7 x 2.9 cm, previously measuring 4.7 x 2.2 cm, increased in size. There is deformity of the hepat ic contour secondary to innumerable hepatic metastatic lesions. Findings appear increased in size. Fo r example within the segment III there is a 5.1 x 5.4 cm lesion, previously measuring 4.3 x 4.2 cm. C oalescent hepatic lesions within the right hepatic lobe are difficult to the measure. Some of these l esions appears similar, for example a 2.7 cm lesion in the right hepatic lobe (series 4, image 12). C oil mass identified within the right upper quadrant. Spleen, adrenal glands and pancreas are normal. Gallbladder is contracted, limiting evaluation. Abdominal aorta is normal in course and caliber. Trac e abdominal free fluid within the dependent portion of pelvis. Portacaval lymph node measures 1.4 cm, stable. No new or enlarging abdominal or pelvic lymphadenopathy. Parastomal hernia identified within the left lower quadrant containing primarily fat. Oral contrast was administered. No dilated loops o f small or large bowel. Urinary bladder is within normal limits in degree of distention. Small fat-co ntaining right inguinal hernia. Prostate and seminal vesicles are normal. Stable sclerotic density in volving the right iliac crest. Anterior cervical discectomy and fusion hardware is partially profiled . Asymmetric atrophy of the left kidney. The kidneys enhance symmetrically. There is no suspicious re nal mass. There is no hydronephrosis. There are no suspected calculi within the kidneys, ureters or u rinary bladder. IMPRESSION: 1. Diffuse hepatic metastatic disease which appears progressed as compared to prior examination. 2. Marginal increase in size of a 10 mm posterior left lower lobe solid noncalcified pulmonary nodule and solid noncalcified pulmonary nodule measuring 7 mm on the right minor fissure. 3. No new or enlarging lymphadenopathy. 4. Postoperative changes of the colon appears similar to the prior exam impression. No bowel obstruct ion or inflammation. Electronically signed by: Edilia Smith MD (07/04/2021 10:22 AM) [id number]
== END ==
LOC: CT 13:16
PROVIDERS: ATTEND Physician Assistant
DX: C78.7 Secondary malignant neoplasm of liver and intrahepatic bile duct (principal); R91.8 Other nonspecific abnormal finding of lung field; K40.90 Unilateral inguinal hernia, without obstruction or gangrene, not specified as recurrent; K76.89 Other specified diseases of liver; N26.1 Atrophy of kidney (terminal); I89.8 Other specified noninfective disorders of lymphatic vessels and lymph nodes; Z98.890 Other specified postprocedural states
CPT/HCPCS: 71260; 74177; J1642; Q9966; Q9967

== ENCOUNTER → 2021-07-05 | Outpatient (CLI) | payer OTHER ==
[2020-07-20 11:37] VITALS: BP 151/93
[~2021-07-05] MED LIST changes: -HEPARIN PF 500 UNIT/5 ML DISP.SYRIN. IVP ONE; -IOHEXOL 240 MG/ML 50ML VIAL. PO ONE; -IOHEXOL 300 MG/ML 100ML VIAL. IV ONE
[2021-07-05 11:42] LABS: BASO # 0.1 x10^3/uL (0.0-0.2); BASO % 1 % (0-3); EOS % 11 % (0-3); HEMATOCRIT 28.2 % (39.0-53.0); HEMOGLOBIN 9.3 g/dL (13.0-17.5); LYMPH # 1.1 x10^3/uL (1.0-4.8); LYMPH % 11 % (24-48); MEAN CORPUSCULAR HEMOGLOBIN 29 pg (25-35); MEAN CORPUSCULAR HGB CONC 33 g/dL (31-37); MEAN CORPUSCULAR VOLUME 89 fL (79-100); MONO # 1.2 x10^3/uL (0.0-1.1); MONO % 13 % (0-9); NEUT # 6.1 x10^3/uL (1.8-7.7); NEUT % 64 % (31-73); PLATELET COUNT 341 x10^3/uL (140-400); RED BLOOD COUNT 3.18 x10^6/uL (4.30-5.70); RED CELL DISTRIBUTION WIDTH 18.3 % (11.5-14.5); WHITE BLOOD COUNT 9.5 x10^3/uL (4.0-11.0)
[2021-07-05 11:56] LABS: ALBUMIN 2.4 g/dL (3.4-5.0); ALBUMIN/GLOBULIN RATIO 0.4 (1.0-1.7); CALCIUM 8.7 mg/dL (8.5-10.1); CREATININE 1.1 mg/dL (0.7-1.3); GFR 83.2; POTASSIUM 3.7 mmol/L (3.5-5.1); TOTAL BILIRUBIN 2.5 mg/dL (0.2-1.0); TOTAL PROTEIN 8.2 g/dL (6.4-8.2)
== END ==
LOC: ONCLAB 11:18
PROVIDERS: ATTEND Physician Assistant
DX: C18.7 Malignant neoplasm of sigmoid colon (principal)
CPT/HCPCS: 36415; 80053; 82378; 85025

== ENCOUNTER → 2021-07-12 | Outpatient (CLI) | payer OTHER ==
[2020-07-20 11:37] VITALS: BP 151/93
[2021-07-12 14:02] LABS: BASO # 0.1 x10^3/uL (0.0-0.2); BASO % 1 % (0-3); EOS # 0.4 x10^3/uL (0.0-0.7); EOS % 5 % (0-3); HEMATOCRIT 26.4 % (39.0-53.0); HEMOGLOBIN 8.7 g/dL (13.0-17.5); LYMPH # 0.9 x10^3/uL (1.0-4.8); LYMPH % 10 % (24-48); MEAN CORPUSCULAR HEMOGLOBIN 29 pg (25-35); MEAN CORPUSCULAR HGB CONC 33 g/dL (31-37); MEAN CORPUSCULAR VOLUME 87 fL (79-100); MONO # 1.1 x10^3/uL (0.0-1.1); MONO % 13 % (0-9); NEUT # 6.3 x10^3/uL (1.8-7.7); NEUT % 72 % (31-73); PLATELET COUNT 277 x10^3/uL (140-400); RED BLOOD COUNT 3.03 x10^6/uL (4.30-5.70); RED CELL DISTRIBUTION WIDTH 18.9 % (11.5-14.5); WHITE BLOOD COUNT 8.8 x10^3/uL (4.0-11.0)
[2021-07-12 14:10] LABS: CREATININE 1.2 mg/dL (0.7-1.3)
[2021-07-12 14:15] LABS: ALBUMIN 2.4 g/dL (3.4-5.0); ALBUMIN/GLOBULIN RATIO 0.4 (1.0-1.7); TOTAL BILIRUBIN 4.6 mg/dL (0.2-1.0); TOTAL PROTEIN 8.8 g/dL (6.4-8.2)
== END ==
LOC: ONCLAB 13:30
PROVIDERS: ATTEND Internal Medicine Hematology & Oncology
DX: C18.7 Malignant neoplasm of sigmoid colon (principal)
CPT/HCPCS: 36415; 80053; 82248; 83615; 85025

== ENCOUNTER → 2021-07-12 | Outpatient (CLI) | payer OTHER ==
[2020-07-20 11:37] VITALS: BP 151/93
--- NOTE | 2021-07-12 17:02 | RAD ---
Site ID: [id number] EXAMINATION: US ABDOMEN LIMITED. TECHNIQUE: Sonographic evaluation of the right upper quadrant with bilingual inside sales representative images obtained HISTORY: 61 years Male Reason: INCREASED BILIRUBIN AND LFT'S . History of colon cancer COMPARISON: Correlation with CT scan from July 01, 2021. FINDINGS: The pancreas is is largely obscured. The demonstrate numerous solid masses compatible with metastatic disease involving large volume of th e liver. The portal vein appears to be patent. The CBD appears to be mildly dilated measuring 7.6 cm in caliber. The gallbladder is contracted with the apparent wall thickening measuring 5 mm. No pericholecystic fl uid. The patient ate one hour prior to the exam. The right kidney measures 11.2 cm in length. No hydronephrosis. No fluid collection in the upper right abdomen is seen. IMPRESSION: 1. Numerous liver masses from known metastatic colon cancer replacing large portions of the liver par enchyma. 2. Minimal dilatation of the CBD. 3. Gallbladder wall thickening with no definite stone or pericholecystic fluid. This could be seconda ry to liver disease rather than primarily cholecystitis related. The patient also a 26 the procedure which is a confounding factor. Electronically signed by: Lucian Gonzalez MD (07/12/2021 4:59 PM) [id number]
== END ==
LOC: US 15:17
PROVIDERS: ATTEND Physician Assistant
DX: C18.7 Malignant neoplasm of sigmoid colon (principal); K82.8 Other specified diseases of gallbladder; E80.7 Disorder of bilirubin metabolism, unspecified; R94.5 Abnormal results of liver function studies
CPT/HCPCS: 76705

== ENCOUNTER → 2021-07-18 | Outpatient (CLI) | payer OTHER ==
[2020-07-20 11:37] VITALS: BP 151/93
[2021-07-18 14:33] LABS: CALCIUM 8.6 mg/dL (8.5-10.1); GFR 92.5; POTASSIUM 3.6 mmol/L (3.5-5.1)
[2021-07-18 14:39] LABS: ALBUMIN 2.2 g/dL (3.4-5.0); ALBUMIN/GLOBULIN RATIO 0.3 (1.0-1.7); TOTAL BILIRUBIN 5.6 mg/dL (0.2-1.0); TOTAL PROTEIN 8.5 g/dL (6.4-8.2)
== END ==
LOC: ONCLAB 13:51
PROVIDERS: ATTEND Internal Medicine Hematology & Oncology
DX: C18.7 Malignant neoplasm of sigmoid colon (principal)
CPT/HCPCS: 36415; 80053

== ENCOUNTER → 2021-07-25 | Outpatient (CLI) | payer OTHER ==
[2020-07-20 11:37] VITALS: BP 151/93
[2021-07-25 11:29] LABS: BASO # 0.1 x10^3/uL (0.0-0.2); BASO % 1 % (0-3); EOS # 0.3 x10^3/uL (0.0-0.7); EOS % 3 % (0-3); HEMOGLOBIN 7.7 g/dL (13.0-17.5); LYMPH # 0.7 x10^3/uL (1.0-4.8); LYMPH % 8 % (24-48); MEAN CORPUSCULAR HEMOGLOBIN 28 pg (25-35); MEAN CORPUSCULAR HGB CONC 34 g/dL (31-37); MEAN CORPUSCULAR VOLUME 84 fL (79-100); MONO % 10 % (0-9); NEUT # 7.6 x10^3/uL (1.8-7.7); NEUT % 79 % (31-73); PLATELET COUNT 339 x10^3/uL (140-400); RED BLOOD COUNT 2.73 x10^6/uL (4.30-5.70); RED CELL DISTRIBUTION WIDTH 19.4 % (11.5-14.5); WHITE BLOOD COUNT 9.7 x10^3/uL (4.0-11.0)
[2021-07-25 11:39] LABS: CALCIUM 8.3 mg/dL (8.5-10.1); CREATININE 1.1 mg/dL (0.7-1.3); GFR 82.9; POTASSIUM 3.8 mmol/L (3.5-5.1)
[2021-07-25 11:51] LABS: ALBUMIN/GLOBULIN RATIO 0.3 (1.0-1.7); TOTAL BILIRUBIN 6.8 mg/dL (0.2-1.0); TOTAL PROTEIN 8.1 g/dL (6.4-8.2)
== END ==
LOC: ONCLAB 11:11
PROVIDERS: ATTEND Internal Medicine Hematology & Oncology
DX: C18.7 Malignant neoplasm of sigmoid colon (principal)
CPT/HCPCS: 36415; 80053; 85025